=== PATIENT | male | born 1960 | race Caucasian/White ===

== ENCOUNTER → 2016-06-27 | Outpatient (CLI) | payer BC ==
--- NOTE | 2016-06-27 09:02 | CT ---
EXAMINATION TYPE: CT chest w con DATE OF EXAM: 06/27/2016 8:37 AM COMPARISON: NONE HISTORY: Abnormal chest xray CT DLP: 749 mGycm Automated exposure control for dose reduction was used. CONTRAST: CT scan of the chest is performed with IV Contrast, patient injected with 100 mL of Omnipaque 300. FINDINGS: LUNGS: There is a noncalcified 1 cm pulmonary nodule right lower lobe medially. No pleural effusion. No pneumothorax. No evidence of focal pneumonia. MEDIASTINUM: There are no greater than 1 cm hilar or mediastinal lymph nodes. No pericardial effusi on is seen. Shotty adenopathy in the hilum noted. OTHER: 1.7 cm indeterminate right adrenal mass IMPRESSION: 1. 1 cm right lower lobe pulmonary nodule is nonspecific. Recommend PET scan. 2. Indeterminate 1.7 cm right adrenal mass. Measures 17 Hounsfield units. May represent an adrenal ad enoma. No prior exams available.
== END ==
LOC: RADCTMAIN 08:07
PROVIDERS: ATTEND Family Medicine
DX: R91.1 Solitary pulmonary nodule (principal); E27.9 Disorder of adrenal gland, unspecified; M54.6 Pain in thoracic spine; J44.9 Chronic obstructive pulmonary disease, unspecified; Z72.0 Tobacco use
CPT/HCPCS: 71260; Q9967

== ENCOUNTER → 2017-12-31 | Outpatient (CLI) | payer BC ==
--- NOTE | 2017-12-31 18:09 | US ---
EXAMINATION TYPE: US venous doppler duplex LE LT DATE OF EXAM: 12/31/2017 5:33 PM COMPARISON: NONE CLINICAL HISTORY: Left Leg Pain M79.605. Left ankle pain while walking and now radiating up calf SIDE PERFORMED: Left TECHNIQUE: The lower extremity deep venous system is examined utilizing real time linear array sonog izzy with graded compression, doppler sonography and color-flow sonography. VESSELS IMAGED: Common Femoral Vein Deep Femoral Vein Greater Saphenous Vein * Femoral Vein Popliteal Vein Small Saphenous Vein * Proximal Calf Veins (* superficial vessels) Left Leg: Is positive for DVT in one of paired Posterior Tibial Veins (PTV) at upper calf level and then in both lower PTV as both veins noncompressible at ankle level. Tech findings were called to Dr. De Santiago at exam's end. IMPRESSION: The exam shows evidence of acute deep venous thrombosis in the posterior tibial veins.
== END | disposition home or self-care (01) ==
LOC: RADUSMAIN 16:46
PROVIDERS: ATTEND Family Medicine
DX: I82.442 Acute embolism and thrombosis of left tibial vein (principal)

== ENCOUNTER → 2018-01-21 | Outpatient (CLI) | payer BC ==
[2018-01-21 10:59] LABS: Basophils # (A) 0.1 k/uL (0-0.2); Basophils % (A) 1 %; Eosinophils # (A) 0.1 k/uL (0-0.7); Eosinophils % (A) 1 %; HCT 48.9 % (39.0-53.0); HGB 15.7 gm/dL (13.0-17.5); Lymphocytes # (A) 1.1 k/uL (1.0-4.8); Lymphocytes % (A) 19 %; MCH 31.1 pg (25.0-35.0); MCHC 32.2 g/dL (31.0-37.0); MCV 96.8 fL (80.0-100.0); Mean Platelet Volume 6.3; Monocytes # (A) 0.4 k/uL (0-1.0); Monocytes % (A) 7 %; Neutrophils # (A) 4.1 k/uL (1.3-7.7); Neutrophils % (A) 70 %; Platelet Count 250 k/uL (150-450); RBC 5.05 m/uL (4.30-5.90); RDW 13.2 % (11.5-15.5); WBC 5.9 k/uL (3.8-10.6)
[2018-01-21 11:03] LABS: INR 1.2 (<1.2); Partial Thromboplastin Time 30.9 sec (22.0-30.0); Prothrombin Time 11.6 sec (9.0-12.0)
[2018-01-21 20:46] LABS: Cardiolipin Ab IgG Interp NEGATIVE (NEGATIVE); Cardiolipin Ab IgM Interp NEGATIVE (NEGATIVE); Cardiolipin IgA Antibody 0.7 U/mL; Cardiolipin IgM Antibody 12.1 U/mL
[2018-01-22 10:07] LABS: Anti-Thrombin III Antigen 101 % (80 - 120)
[2018-01-23 11:10] LABS: Protein C Antigen 111 % (72-160)
[2018-01-23 11:20] LABS: Anti-Thrombin III Activity 122 % (79-109); Protein C (Activity) 130 % (71-138)
[2018-01-23 13:19] LABS: Free Protein S Antigen 88 % (57 - 171)
== END ==
LOC: LABWHC1 09:50
PROVIDERS: ATTEND Family Medicine
DX: I82.492 Acute embolism and thrombosis of other specified deep vein of left lower extremity (principal)
CPT/HCPCS: 36415; 81241; 83090; 85025; 85300; 85301; 85302; 85303; 85306; 85610; 85730; 86147

== ENCOUNTER → 2018-03-27 | Outpatient (CLI) | payer BC ==
--- NOTE | 2018-03-27 13:49 | US ---
EXAMINATION TYPE: US venous doppler duplex LE LT DATE OF EXAM: 03/27/2018 1:21 PM COMPARISON: US CLINICAL HISTORY: R22.42 M79.662 pain swelling left lower limb. Follow up US for Left PTV DVT SIDE PERFORMED: Left TECHNIQUE: The lower extremity deep venous system is examined utilizing real time linear array sonog izzy with graded compression, doppler sonography and color-flow sonography. VESSELS IMAGED: Common Femoral Vein Deep Femoral Vein Greater Saphenous Vein * Femoral Vein Popliteal Vein Small Saphenous Vein * Proximal Calf Veins (* superficial vessels) Left Leg: Is positive for DVT in one of two calf veins mid left leg as 1 of 2 veins is non compressi ble and internal echoes are noted within this vein. IMPRESSION: 1. below the knee DVT noted.
== END | disposition home or self-care (01) ==
LOC: RADUSWWP 12:54
PROVIDERS: ATTEND Internal Medicine Hematology & Oncology
DX: I82.4Z2 Acute embolism and thrombosis of unspecified deep veins of left distal lower extremity (principal); Z88.1 Allergy status to other antibiotic agents

== ENCOUNTER → 2018-06-29 | Outpatient (CLI) | payer BC ==
--- NOTE | 2018-06-29 15:02 | EST ---
EXERCISE STRESS AGE: 58 SEX: M HT: 5'11" WT: 200 PROTOCOL: Davon Treadmill Stress Test STAGE: 3 DURATION OF EXERCISE: 9:48 HEART RATE REST: 71 BLOOD PRESSURE REST: 118/81 MAXIMUM HEART RATE ACHIEVED: 138 MAXIMUM BLOOD PRESSURE: 170/54 85% MPHR: 136 100% MPHR: 160 METS: 11.3 INDICATIONS: Chest pain. CLINICAL INFORMATION: Baseline rhythm is sinus mechanism, rate 71. Normal axis and intervals, normal echocardiogram. Baseline blood pressure 118/81 mmHg. Patient exercised on Davon protocol for 9 minutes, 48 seconds reaching a peak rate 138 beats per minute which is equal to 86% maximum predicted heart rate. Peak blood pressure 170/54 mmHg. Test was terminated secondary to fatigue. There was no chest pain. Electrocardiograph monitoring revealed no evidence of diagnostic ischemic ST deviation. CONCLUSION: 1. Average exercise tolerance was normal. 2. Normal EKG response to exercise. 3. Rare premature ventricular contractions. 4. No chest discomfort during exercise. MMODL / IJN: [id number] / MTDD
== END ==
LOC: RADNMMAIN 08:47
PROVIDERS: ATTEND Physician Assistant Medical
DX: R07.89 Other chest pain (principal)
CPT/HCPCS: 93017

== ENCOUNTER → 2018-07-07 | Outpatient (CLI) | payer BC ==
--- NOTE | 2018-07-07 10:28 | US ---
EXAMINATION TYPE: US venous doppler duplex LE LT DATE OF EXAM: 07/07/2018 9:55 AM COMPARISON: CLINICAL HISTORY: I80.10 DVT. Hx of DVT. On blood thinners. No swelling or redness today. SIDE PERFORMED: Left TECHNIQUE: The lower extremity deep venous system is examined utilizing real time linear array sonog izzy with graded compression, doppler sonography and color-flow sonography. VESSELS IMAGED: External Iliac Vein (EIV) Common Femoral Vein Deep Femoral Vein Greater Saphenous Vein * Femoral Vein Popliteal Vein Small Saphenous Vein * Proximal Calf Veins (* superficial vessels) Left Leg: Negative for DVT IMPRESSION: No evidence for DVT.
== END | disposition home or self-care (01) ==
LOC: RADUSWWP 09:27
PROVIDERS: ATTEND Internal Medicine Hematology & Oncology
DX: I82.412 Acute embolism and thrombosis of left femoral vein (principal)

== ENCOUNTER → 2018-09-15 | Outpatient (CLI) | payer BC ==
--- NOTE | 2018-09-15 09:37 | XR ---
EXAMINATION TYPE: XR finger LT DATE OF EXAM: 09/15/2018 COMPARISON: NONE HISTORY: Temperature change of the left finger TECHNIQUE: 2 views of the left fourth and fifth digits were obtained FINDINGS: There is mild arthropathy of the fifth distal interphalangeal joint with few subchondral cy sts. There is minimal soft tissue swelling around the fourth proximal interphalangeal joint with join t space narrowing, bony productive change with overhanging edges, few osseous cysts. These changes ar e also partially visualized of the proximal and distal interphalangeal joints of the third digit. No acute fracture or dislocation. No radiopaque foreign body. IMPRESSION: Degenerative change of the proximal and distal interphalangeal joints of the left third t hrough fifth fingers is most exaggerated at the proximal interphalangeal joint of the fourth digit wi th mild overlying soft tissue swelling. Considerations are for osteoarthritis, gout, and psoriatic ar thritis given the appearance.
== END | disposition home or self-care (01) ==
LOC: RADXRYALE 08:51
PROVIDERS: ATTEND Physician Assistant Medical
DX: M19.042 Primary osteoarthritis, left hand (principal)

== ENCOUNTER → 2018-12-11 | Outpatient (CLI) | payer OTHER ==
--- NOTE | 2018-12-11 14:03 | MR ---
EXAMINATION TYPE: MR abdomen wo/w con DATE OF EXAM: 12/11/2018 COMPARISON: CT chest dated 03/11/2019 and 3-17 HISTORY: Disorders of adrenal gland Abnormal findings CONTRAST: Standard multiplanar, multisequence MRI departmental protocol utilizing 9 mL intravenous Gadavist edil olinium contrast. FINDINGS: Approximately 1.5 cm right basilar pulmonary nodule is known to the patient seen on the prior CT. There is no signal dropout of the liver to suggest hepatic steatosis. There is no evidence of intrahe patic biliary ductal dilatation. Punctate T2 hyperintense and T1 hypointense hepatic cyst is seen. Ot her scattered probable cysts are seen that are nonenhancing on postcontrast T1-weighted nonfat sat ax ial images however no corresponding T2 hyperintensity is definitively seen within some of these becau se of patient motion. Patient motion artifact limits the examination particularly on T2-weighted sequ ences. There is marked signal dropout of the right adrenal gland lesion compatible with a benign lipid rich adenoma. This lesion measures approximately 1.8 x 1.6 cm. There is also washout of contrast noted on delayed images within this mass. Left adrenal gland is unremarkable. No pancreatic ductal dilatation. Spleen is unremarkable in signal and enhancement. No greater than 1 cm short axis lymph node is visualized in the abdomen. No dilated large or small bowel are seen. Diastases recti is incidentally noted. IMPRESSION: 1. The right adrenal gland mass is stable dating back to 2016 and features are compatible with a philip gn lipid rich adenoma on MRI. 2. Right lower lobe pulmonary nodule, known to the patient is this was seen on the prior CT thorax.
--- NOTE | 2018-12-16 09:25 | P.ARTDOP ---
Arterial Doppler Upper extremity arterial Doppler: Date of study: 12/11/2018 Reason for study: Numbness left fourth finger Findings: Doppler waveforms are multiphasic bilaterally throughout. There are no segmental or right to left pressure gradients. Impression: Normal study
== END | disposition home or self-care (01) ==
LOC: RADMRIMAIN 12:32
PROVIDERS: ATTEND Family Medicine
DX: E27.8 Other specified disorders of adrenal gland (principal); D68.59 Other primary thrombophilia; L60.8 Other nail disorders
CPT/HCPCS: 93923; 74183; A9585

== ENCOUNTER → 2018-12-30 | Outpatient (CLI) | payer BC, OTHER ==
--- NOTE | 2018-12-31 06:57 | ECHOF ---
Referral Reason:R06.02 shortness of breath MEASUREMENTS -------- HEIGHT: 180.3 cm WEIGHT: 90.7 kg BP: RVIDd: 3.8 cm (< 3.3) IVSd: 1.2 cm (0.6 - 1.1) LVIDd: 4.9 cm (3.9 - 5.3) LVPWd: 1.2 cm (0.6 - 1.1) IVSs: 1.7 cm LVIDs: 3.3 cm LVPWs: 1.9 cm LAESV Index (A-L): 20.15 ml/m Ao Diam: 2.8 cm (2.0 - 3.7) AV Cusp: 2.2 cm (1.5 - 2.6) LA Diam: 3.5 cm (2.7 - 3.8) EPSS: 0.5 cm MV E Cain: 0.70 m/s MV DecT: 216 ms MV A Cain: 0.57 m/s MV E/A Ratio: 1.22 RAP: 5.00 mmHg RVSP: 33.35 mmHg MV EF SLOPE: 206.58 mm/s (70 - 150) MV EXCURSION: 2.62 cm (> 18.000) FINDINGS -------- Sinus rhythm. This was a technically good study. The left ventricular size is normal. There is mild concentric left ventricular hypertrophy. Overa ll left ventricular systolic function is normal with, an EF between 60 - 65 %. The diastolic fillin g pattern is normal for the age of the patient. The right ventricle is normal in size. Left atrium is normal size by volume. RA appears enlarged Interatrial and interventricular septum intact. Mobile interatrial septum. The aortic valve is trileaflet and appears structurally normal. There is no evidence of aortic regu rgitation. There is no evidence of aortic stenosis. There is trace to mild mitral regurgitation. Mild tricuspid regurgitation present. There is no evidence of pulmonary hypertension. The right v entricular systolic pressure, as measured by Doppler, is 33.35mmHg. There is no pulmonic regurgitation present. The aortic root size is normal. The inferior vena cava is mildly dilated. There is no pericardial effusion. CONCLUSIONS -------- 1. Sinus rhythm. 2. This was a technically good study. 3. The left ventricular size is normal. 4. There is mild concentric left ventricular hypertrophy. 5. Overall left ventricular systolic function is normal with, an EF between 60 - 65 %. 6. The diastolic filling pattern is normal for the age of the patient. 7. The right ventricle is normal in size. 8. Left atrium is normal size by volume. 9. RA appears enlarged 10. Interatrial and interventricular septum intact. 11. Mobile interatrial septum. 12. The aortic valve is trileaflet and appears structurally normal. 13. There is no evidence of aortic regurgitation. 14. There is no evidence of aortic stenosis. 15. There is trace to mild mitral regurgitation. 16. Mild tricuspid regurgitation present. 17. There is no evidence of pulmonary hypertension. 18. The right ventricular systolic pressure, as measured by Doppler, is 33.35mmHg. 19. There is no pulmonic regurgitation present. 20. The aortic root size is normal. 21. The inferior vena cava is mildly dilated. 22. There is no pericardial effusion. TRUCK WASHER: Elena Swift RDCS
== END | disposition home or self-care (01) ==
LOC: RADECHMAIN 11:02
PROVIDERS: ATTEND Family Medicine
DX: I08.1 Rheumatic disorders of both mitral and tricuspid valves (principal)
CPT/HCPCS: 93306

== ENCOUNTER → 2019-01-05 | Outpatient (CLI) | payer BC, OTHER ==
--- NOTE | 2019-01-05 12:24 | CT ---
EXAMINATION TYPE: CT chest w con DATE OF EXAM: 01/05/2019 COMPARISON: CT chest March 11, [address] of June 27, 2016 HISTORY: follow up to lung nodule CT DLP: 558 mGycm. Automated Exposure Control for Dose Reduction was Utilized. TECHNIQUE: CT scan of the thorax is performed following with IV Contrast, patient injected with 100 mL of Isovue 300. FINDINGS: LUNGS: Posterior medial right lower lobe nodule shows continued interval growth now measuring 1.4 x 1 .3 x 1.4 cm craniocaudal dimension axial image 15 and coronal image 54 courses last 2 studies. No new nodules or masses. No pleural effusion or pneumothorax. No focal consolidation MEDIASTINUM: There is stable prominent right hilar lymph node axial image 29 unchanged from prior elia dies. Stable prominent borderline enlarged AP window lymph node axial image 24. Stable prominent righ t tracheobronchial lymph node axial image 24. No new greater than 1 cm adenopathy. No cardiomegaly or pericardial effusion is seen. OTHER: Fairly stable indeterminate 2.1 x 1.7 cm right adrenal mass image 67. IMPRESSION: Continued interval slight enlargement of medial right basilar nodule. Neoplasm cannot be excluded. PET/CT follow-up should be strongly considered. This could also better evaluate indetermina te right adrenal mass.
== END | disposition home or self-care (01) ==
LOC: RADCTMAIN 09:13
PROVIDERS: ATTEND Internal Medicine Hematology & Oncology
DX: R91.1 Solitary pulmonary nodule (principal); Z88.1 Allergy status to other antibiotic agents
CPT/HCPCS: 71260; Q9967

== ENCOUNTER → 2019-10-08 | Outpatient (CLI) | payer OTHER ==
--- NOTE | 2019-10-08 18:27 | CT ---
EXAMINATION TYPE: CT chest w con DATE OF EXAM: 10/08/2019 COMPARISON: 01/05/2019 and 03/11/2020. MRI 12/11/2018. HISTORY: 59-year-old male Lung nodule. TECHNIQUE: Contiguous axial scanning of the chest after the administration of 100 mL of Isovue 300. Coronal/sagittal reconstructions performed. CT DLP: 347.9mGycm. Automatic exposure control utilized for a dose reduction. FINDINGS: Heart normal size without pericardial effusion. Stable 1 cm short axis AP window lymph node. No other thoracic lymphadenopathy by CT size criteria. Aorta normal caliber with conventional branching anatomy. Redemonstrated is irregular medial right lower lobe pulmonary nodule currently measuring 2.2 x 1.7 cm . This measured 1.6 x 1.3 cm and 1.3 x 1.1 cm on the prior 01/05/2019 and 03/11/2018 exam, respectivel y. No consolidation or pleural effusion. Visualized upper abdomen shows low-density mass of the right adrenal gland measuring 2.2 x 1.9 cm livia eduar 2.1 x 1.7 cm on 03/11/2018, stable to minimally larger. Visualized upper abdomen otherwise shows no gross abnormality. Bones: No osseous destructive process. IMPRESSION: 1. Findings highly suspicious for low-grade lung cancer at the medial right base which shows continue d gradual enlargement currently measuring 2.2 x 1.7 cm versus 1.3 x 1.1 cm back on 03/11/2018. 2. Low-density mass of the right adrenal gland measures 2.2 x 1.9 cm, stable to minimally larger from 03/11/2018 where it measured 2.1 x 1.7 cm. Still most suggestive of a benign adrenal adenoma given f indings on the MRI of 12/11/2018.
== END | disposition home or self-care (01) ==
LOC: RADCTMAIN 16:02
PROVIDERS: ATTEND Internal Medicine Critical Care Medicine
DX: R91.1 Solitary pulmonary nodule (principal)
CPT/HCPCS: 71260; Q9967

== ENCOUNTER → 2021-01-12 | Outpatient (CLI) | payer OTHER ==
--- NOTE | 2021-01-12 15:36 | XR ---
EXAMINATION TYPE: XR shoulder complete LT DATE OF EXAM: 01/12/2021 COMPARISON: NONE HISTORY: Pain TECHNIQUE: Three views are submitted. FINDINGS: The osseous structures are intact. There is no acute fracture or dislocation. Arthropathy of the AC joint. IMPRESSION: 1. AC joint arthropathy
== END | disposition home or self-care (01) ==
LOC: RADXRYALE 15:19
PROVIDERS: ATTEND Family Medicine
DX: M19.012 Primary osteoarthritis, left shoulder (principal)

== ENCOUNTER → 2021-01-24 | Outpatient (CLI) | payer OTHER ==
--- NOTE | 2021-01-25 07:45 | CT ---
EXAMINATION TYPE: CT chest w con DATE OF EXAM: 01/24/2021 COMPARISON: 10/08/2019 HISTORY: Pulmonary nodule. No complaints by patient. CT DLP: 383.70 mGycm Automated exposure control for dose reduction was used. CONTRAST: CT scan of the chest is performed with IV Contrast, patient injected with 100 mL of Isovue 300. FINDINGS: LUNGS: There is interval enlargement of a 3.0 x 4.5 x 2.8 cm mass within the right lower lobe mediall y with prior measurement of 2.2 x 1.7 cm. No additional masses seen. MEDIASTINUM: There are no greater than 1 cm hilar or mediastinal lymph nodes. 1.4 cm right hilar lym ph node noted. Additional 1.1 cm lymph node right infrahilar region. No pericardial effusion is seen. Thoracic aorta is of normal caliber. The heart is not enlarged. UPPER ABDOMEN: Enlarging mass right adrenal gland suspicious for metastatic disease now measuring 3.7 x 3.1 cm versus 2.3 x 1.9 cm previously. OTHER: No additional significant abnormality is seen. IMPRESSION: 1. Enlarging mass right lower lobe consistent with malignancy. 2. Right hilar adenopathy. 3. Enlarging right adrenal mass felt to reflect metastatic disease.
== END | disposition home or self-care (01) ==
LOC: RADCTMAIN 16:38
PROVIDERS: ATTEND Family Medicine
DX: C79.71 Secondary malignant neoplasm of right adrenal gland (principal); R91.8 Other nonspecific abnormal finding of lung field; R59.0 Localized enlarged lymph nodes
CPT/HCPCS: 71260; Q9967

== ENCOUNTER → 2021-02-09 | Outpatient (CLI) | payer OTHER ==
--- NOTE | 2021-02-09 15:38 | PE ---
EXAMINATION TYPE: PET CT fusion skull to thigh DATE OF EXAM: 02/09/2021 COMPARISON: Chest CT November 23, 2020 and older CTs HISTORY: Solitary pulmonary nodule, abnormal CT. TECHNIQUE: Following the intravenous administration of 9.0 mCi of F-18 FDG, whole body images are pe rformed from the skull base to the midthigh. Images are reviewed on the computer in the coronal, axi al, and sagittal planes. Reconstructed rotating images are created on independent workstation and re viewed on the computer. A localization and attenuation correction CT is performed in conjunction wi th the PET scan. Blood glucose level equals 96. SCAN: Initial Scan FINDINGS: SKULL BASE AND NECK: No areas of abnormal hypermetabolic uptake. CHEST, MEDIASTINUM, AND HILAR REGION: Persistent enlarging medial right lower lobe mass measuring 4.2 x 3.0 cm axial image 132 is noted ametabolic. Mild hypermetabolic uptake right hilar level axial image 98 with max SUV less than 2.5. No areas of abnormal hypermetabolic uptake clearly seen. ABDOMEN AND PELVIS: Abnormal roughly 1 cm mildly hypermetabolic uptake in the esophagus at level of d iaphragmatic hiatus axial image 146, max SUV is 3.62. OSSEOUS STRUCTURES: Abnormal hypermetabolic left proximal femur lesion axial image 279. Additional hy permetabolic scattered osseous lesions for reference upper sacrum axial image 219. Abnormal hypermeta bolic uptake distal left clavicle axial image 63 with corresponding ovoid lytic lesion. Max SUV at th is level is 7.99. Additional scattered hypermetabolic osseous lesions. OTHER CT: [id number] calcified plaque bilateral carotid bulb level. Mild to moderate coronary a rtery calcification. Small sized hiatal hernia. Stable low dense 4.1 x 2.4 cm right adrenal mass. Sigmoid colonic divertic asher. IMPRESSION: No suspicious hypermetabolic uptake in the enlarging medial right lower lobe mass. There is however osseous metastatic disease present. Possible distal esophageal lesion at level of diaphrag matic hiatus. Advise endoscopy follow-up to further evaluate. Primary etiology of neoplasm uncertain.
== END | disposition home or self-care (01) ==
LOC: RADPETMAIN 12:23
PROVIDERS: ATTEND Internal Medicine Critical Care Medicine
DX: C79.51 Secondary malignant neoplasm of bone (principal); R91.1 Solitary pulmonary nodule; C80.1 Malignant (primary) neoplasm, unspecified
CPT/HCPCS: 78815; A9552

== ENCOUNTER → 2021-03-16 | Outpatient (CLI) | payer OTHER ==
--- NOTE | 2021-03-16 10:45 | MR ---
EXAMINATION TYPE: MR shoulder LT wo con DATE OF EXAM: 03/16/2021 COMPARISON: PET CT 02/09/2021 HISTORY: Pain in left shoulder TECHNIQUE: Multiplanar, multisequence imaging of the left shoulder is performed without contrast. FINDINGS: There is a destructive mass involving the left scapula measuring approximately 4.5 x 3.8 x 3 cm in size which shows intermediate signal on T1, increased signal on T2-weighted sequences. Signal is somewhat mixed, there is extension to the level of the acromion and along the scapular spine, the re is mass effect on the supraspinatus muscle. Rotator Cuff: Mild increased signal may represent tendinosis. Acromioclavicular Joint: The acromion shows a spur. Glenohumeral Joint: Intact Labrum: The labrum appears grossly intact given limitation of non-arthrogram study. Biceps Tendon: The long head of biceps is in normal location within bicipital groove. Bone marrow signal: No focal abnormal marrow signal is appreciated. Other: No additional significant abnormality is appreciated. IMPRESSION: Findings likely represent metastatic disease. Correlate for impingement.
== END | disposition home or self-care (01) ==
LOC: RADMRIMAIN 08:09
PROVIDERS: ATTEND Family Medicine
DX: R22.32 Localized swelling, mass and lump, left upper limb (principal)

== ENCOUNTER → 2021-04-06 | Outpatient (CLI) | payer OTHER ==
--- NOTE | 2021-04-06 22:04 | MR ---
EXAMINATION TYPE: MR brain wo/w con DATE OF EXAM: 04/06/2021 COMPARISON: None HISTORY: Lung nodule, bone metastasis. TECHNIQUE: Multiplanar, multisequence images of the brain and brainstem is performed without and with IV contras t, utilizing 9 mL intravenous Gadavist . FINDINGS: Diffusion weighted images demonstrate no evidence of a recent infarct or other diffusion ab normality. There is no extra-axial fluid collection or significant white matter signal abnormality, 3-5 hyperintensities on inversion recovery T2-weighted sequences present in the subcortical white mat ter of questionable clinical significance. The ventricular system and cisternal spaces are normal in size and appearance. The brain volume is age appropriate. Midline structures demonstrate normal morphology. The craniocervical junction appears within normal limits. Post contrast images demonstrate no abnormal enhancement. The dural venous sinuses appear pa tent. The visualized sinuses are clear and the globes are intact. IMPRESSION: Nonspecific white matter demyelination of questionable clinical significance.
== END | disposition home or self-care (01) ==
LOC: RADMRIMAIN 18:25
PROVIDERS: ATTEND Internal Medicine Hematology & Oncology
DX: C80.1 Malignant (primary) neoplasm, unspecified (principal); C79.51 Secondary malignant neoplasm of bone; R91.1 Solitary pulmonary nodule
CPT/HCPCS: 70553; A9585

== ENCOUNTER 2021-04-17 08:57 | Day surgery (SDC) | payer OTHER ==
[2021-04-17 09:34] VITALS: RESP 16; TEMP 98.2
[2021-04-17 10:46] VITALS: BP 124/71; PULSE 74
--- NOTE | 2021-04-17 11:06 | CT ---
EXAMINATION TYPE: CT biopsy bone superficial DATE OF EXAM: 04/17/2021 COMPARISON: 02/09/2021, 03/16/2021 HISTORY: Left shoulder lesion of the bone CT DLP: 1279 mGycm The procedure is discussed with the patient, the risks, complications, benefits and alternatives, wer e discussed and any questions were answered. Informed consent was obtained. The patient is placed p raul on the CT table, prepped and draped in the usual sterile fashion. Utilizing a 18-gauge core biopsy needle access into left shoulder mass was achieved with 4 samples ob tained. Pathology confirmed adequate sample. All elements of maximal barrier and sterile technique were utilized. The patient remained stable throughout the procedure with no immediate postprocedural complication. IMPRESSION: 1. Successful CT guided core biopsy left shoulder mass
== END 2021-04-17 11:10 | disposition home or self-care (01) ==
LOC: RADPROMAIN 08:57
PROVIDERS: ATTEND Internal Medicine Hematology & Oncology
DX: M75.92 Shoulder lesion, unspecified, left shoulder (principal); C40.02 Malignant neoplasm of scapula and long bones of left upper limb
CPT/HCPCS: 20220; 77012; 88305; 88341; 88342

== ENCOUNTER 2021-05-10 19:22 | Observation (INO) | payer OTHER ==
[2021-05-10] MEDS ORDERED: SODIUM CHLORIDE 0.9% 1,000 ML IV STA (19:56)
--- NOTE | 2021-05-10 19:59 | ED ---
General Adult HPI - General Chief complaint: Weakness Stated complaint: Low B/P,Dizzy,Irregular Heartbeat Time Seen by Provider: 05/10/21 19:41 Source: patient, RN notes reviewed, old records reviewed Mode of arrival: ambulatory Limitations: no limitations - History of Present Illness Initial comments: 61-year-old male with recent diagnosis of stage IV adenocarcinoma presenting for evaluation of near syncope. Patient is coming by his daughter who is a nurse was able to give detailed history. He has had recent biopsy of the left shoulder and has undergone radiation. He is not yet to start chemotherapy. The patient had 2 episodes of near syncope today his blood pressure was 100 systolic and his heart rate was elevated and irregular according to the daughter. He has no previous history of A. fib. He denies chest pain or palpitations. Denies abdominal pain nausea vomiting. He states he has had night sweats for some time. No recent weight loss. - Related Data Home Medications Medication Instructions Recorded Confirmed Cholecalciferol (Vitamin D3) 125 mcg PO DAILY 04/04/21 05/10/21 [Vitamin D3 (125 MCG = 5,000 IU)] HYDROcodone/APAP 5-325MG [[place] 1 tab PO Q6HR PRN 04/04/21 05/10/21 5-325] Zinc 50 mg PO DAILY 04/04/21 05/10/21 Acetaminophen Tab [Tylenol Tab] 500 - 1,000 mg PO Q4H PRN 05/10/21 05/10/21 Ibuprofen [Motrin Ib] 800 mg PO Q4H PRN 05/10/21 05/10/21 oxyCODONE-APAP 7.5-325MG [Percocet 1 tab PO Q6HR PRN 05/10/21 05/10/21 7.5-325 mg] Allergies Allergy/AdvReac Type Severity Reaction Status Date / Time bee venom protein (honey bee) Allergy Swelling Verified 05/10/21 21:08 cephalexin [From Keflex] Allergy Rash/Hives Verified 05/10/21 21:08 Review of Systems ROS Statement: Those systems with pertinent positive or pertinent negative responses have been documented in the HPI. ROS Other: All systems not noted in ROS Statement are negative. Past Medical History Additional Past Medical History / Comment(s): cx- stage 4 adnocarcinoma. blood clots History of Any Multi-Drug Resistant Organisms: None Reported Past Surgical History: No Surgical Hx Reported, Orthopedic Surgery Additional Past Surgical History / Comment(s): hernia Past Psychological History: No Psychological Hx Reported Smoking Status: Current every day smoker Past Alcohol Use History: Rare Past Drug Use History: Marijuana General Exam Limitations: no limitations General appearance: alert, in no apparent distress Head exam: Present: atraumatic, normocephalic Eye exam: Present: normal appearance, PERRL ENT exam: Present: mucous membranes dry Neck exam: Present: normal inspection. Absent: tenderness, meningismus Respiratory exam: Present: normal lung sounds bilaterally. Absent: respiratory distress, wheezes, rales Cardiovascular Exam: Present: regular rate, normal rhythm GI/Abdominal exam: Present: soft. Absent: distended, tenderness, guarding, rebound Extremities exam: Present: normal inspection, normal capillary refill. Absent: pedal edema, calf tenderness Neurological exam: Present: alert, oriented X3, CN II-XII intact. Absent: motor sensory deficit Psychiatric exam: Present: normal affect, normal mood Skin exam: Present: warm, dry, intact Course Vital Signs 05/10/21 05/10/21 19:31 20:37 Temperature 98.7 F Pulse Rate 97 83 Respiratory 20 16 Rate Blood Pressure 132/79 127/77 O2 Sat by Pulse 97 97 Oximetry - Reevaluation(s) Reevaluation #1: 05/10/212129 patient requests and as to whether he had any chest pain or dyspnea within the past several days, he denies. EKG Findings - EKG Comments: EKG Findings:: EKG: Normal sinus rhythm, rate 79, AL interval 126, QRS duration 92, QTC [address] segment elevation. Medical Decision Making - Medical Decision Making 61-year-old male who presented with near syncope, 2 episodes, and racing heart and irregular pulse. Patient has no acute complaints at the time my evaluation. No chest pain or dyspnea. His EKG is sinus rhythm without ST segment elevation. Chest x-ray is clear. He is currently being evaluated and treated for metastatic adenocarcinoma. Patient has normal white blood cell count, hemoglobin of 11.1. He has normal electrolytes, normal kidney function. His initial troponin is 0.094. According to the daughter who is a nurse he was in a tachycardic irregular rhythm. I suspect that this rhythm may have been the cause of his near-syncope as well as troponin elevation. He has no active chest pain, no dyspnea. This level will be trended. He will be monitored on telemetry. He is given an aspirin. Cardiology will be placed on consult. Discussed case with Daina vance for [facility]. - Lab Data Result diagrams: 05/10/21 20:02 05/10/21 20:02 Lab Results 05/10/21 05/10/21 05/10/21 Range/Units 20:02 20:02 20:02 WBC 8.6 (3.8-10.6) k/uL RBC 3.94 L (4.30-5.90) m/uL Hgb 11.1 L (13.0-17.5) gm/dL Hct 35.7 L (39.0-53.0) % MCV 90.5 (80.0-100.0) fL MCH 28.3 (25.0-35.0) pg MCHC 31.3 (31.0-37.0) g/dL RDW 13.9 (11.5-15.5) % Plt Count 553 H (150-450) k/uL MPV 7.1 Neutrophils % 71 % Lymphocytes % 16 % Monocytes % 8 % Eosinophils % 2 % Basophils % 1 % Neutrophils # 6.1 (1.3-7.7) k/uL Lymphocytes # 1.4 (1.0-4.8) k/uL Monocytes # 0.7 (0-1.0) k/uL Eosinophils # 0.2 (0-0.7) k/uL Basophils # 0.1 (0-0.2) k/uL Hypochromasia Slight PT 10.5 (9.0-12.0) sec INR 1.0 (<1.2) APTT 26.7 (22.0-30.0) sec Sodium 138 (137-145) mmol/L Potassium 3.9 (3.5-5.1) mmol/L Chloride 103 (98-107) mmol/L Carbon Dioxide 27 (22-30) mmol/L Anion Gap 8 mmol/L BUN 19 (9-20) mg/dL Creatinine 0.90 (0.66-1.25) mg/dL Est GFR (CKD-EPI)AfAm >90 (>60 ml/min/1.73 sqM) Est GFR (CKD-EPI)NonAf >90 (>60 ml/min/1.73 sqM) Glucose 109 H (74-99) mg/dL Calcium 8.9 (8.4-10.2) mg/dL Magnesium 2.2 (1.6-2.3) mg/dL Total Bilirubin 0.5 (0.2-1.3) mg/dL AST 18 (17-59) U/L ALT 16 (4-49) U/L Alkaline Phosphatase 73 (38-126) U/L Troponin I (0.000-0.034) ng/mL Total Protein 7.2 (6.3-8.2) g/dL Albumin 3.2 L (3.5-5.0) g/dL Urine Color Urine Appearance (Clear) Urine pH (5.0-8.0) Ur Specific [place] (1.001-1.035) Urine Protein (Negative) Urine Glucose (UA) (Negative) Urine Ketones (Negative) Urine Blood (Negative) Urine Nitrite (Negative) Urine Bilirubin (Negative) Urine Urobilinogen (<2.0) mg/dL Ur Leukocyte Esterase (Negative) 05/10/21 05/10/21 Range/Units 20:02 21:47 WBC (3.8-10.6) k/uL RBC (4.30-5.90) m/uL Hgb (13.0-17.5) gm/dL Hct (39.0-53.0) % MCV (80.0-100.0) fL MCH (25.0-35.0) pg MCHC (31.0-37.0) g/dL RDW (11.5-15.5) % Plt Count (150-450) k/uL MPV Neutrophils % % Lymphocytes % % Monocytes % % Eosinophils % % Basophils % % Neutrophils # (1.3-7.7) k/uL Lymphocytes # (1.0-4.8) k/uL Monocytes # (0-1.0) k/uL Eosinophils # (0-0.7) k/uL Basophils # (0-0.2) k/uL Hypochromasia PT (9.0-12.0) sec INR (<1.2) APTT (22.0-30.0) sec Sodium (137-145) mmol/L Potassium (3.5-5.1) mmol/L Chloride (98-107) mmol/L Carbon Dioxide (22-30) mmol/L Anion Gap mmol/L BUN (9-20) mg/dL Creatinine (0.66-1.25) mg/dL Est GFR (CKD-EPI)AfAm (>60 ml/min/1.73 sqM) Est GFR (CKD-EPI)NonAf (>60 ml/min/1.73 sqM) Glucose (74-99) mg/dL Calcium (8.4-10.2) mg/dL Magnesium (1.6-2.3) mg/dL Total Bilirubin (0.2-1.3) mg/dL AST (17-59) U/L ALT (4-49) U/L Alkaline Phosphatase (38-126) U/L Troponin I 0.094 H* (0.000-0.034) ng/mL Total Protein (6.3-8.2) g/dL Albumin (3.5-5.0) g/dL Urine Color Yellow Urine Appearance Clear (Clear) Urine pH 5.5 (5.0-8.0) Ur Specific [place] 1.021 (1.001-1.035) Urine Protein Negative (Negative) Urine Glucose (UA) Negative (Negative) Urine Ketones Negative (Negative) Urine Blood Negative (Negative) Urine Nitrite Negative (Negative) Urine Bilirubin Negative (Negative) Urine Urobilinogen <2.0 (<2.0) mg/dL Ur Leukocyte Esterase Negative (Negative) Disposition Clinical Impression: Syncope, Elevated troponin Disposition: ADMITTED IP TO THIS [facility] Condition: Stable Is patient prescribed a controlled substance at d/c from ED?: No Referrals: Jose De Santiago DO [Primary Care Provider] - 1-2 days Decision to Admit Reason: Admit from EC Decision Date: 05/10/21 Decision Time: 22:15
[2021-05-10 20:11] LABS: Basophils # (A) 0.1 k/uL (0-0.2); Basophils % (A) 1 %; Eosinophils # (A) 0.2 k/uL (0-0.7); Eosinophils % (A) 2 %; HCT 35.7 % (39.0-53.0); HGB 11.1 gm/dL (13.0-17.5); Hypochromasia Slight; Lymphocytes # (A) 1.4 k/uL (1.0-4.8); Lymphocytes % (A) 16 %; MCH 28.3 pg (25.0-35.0); MCHC 31.3 g/dL (31.0-37.0); MCV 90.5 fL (80.0-100.0); Mean Platelet Volume 7.1; Monocytes # (A) 0.7 k/uL (0-1.0); Monocytes % (A) 8 %; Neutrophils # (A) 6.1 k/uL (1.3-7.7); Neutrophils % (A) 71 %; Platelet Count 553 k/uL (150-450); RBC 3.94 m/uL (4.30-5.90); RDW 13.9 % (11.5-15.5); WBC 8.6 k/uL (3.8-10.6)
[2021-05-10 20:20] LABS: ALT 16 U/L (4-49); AST 18 U/L (17-59); African American GFR (CKD) >90 (>60 ml/min/1.73 sqM); Albumin 3.2 g/dL (3.5-5.0); Alkaline Phosphatase 73 U/L (38-126); Anion Gap 8 mmol/L; Blood Urea Nitrogen 19 mg/dL (9-20); Calcium 8.9 mg/dL (8.4-10.2); Carbon Dioxide 27 mmol/L (22-30); Chloride 103 mmol/L (98-107); Glucose 109 mg/dL (74-99); Magnesium 2.2 mg/dL (1.6-2.3); Non-African American GFR(CKD) >90 (>60 ml/min/1.73 sqM); Potassium 3.9 mmol/L (3.5-5.1); Sodium 138 mmol/L (137-145); Total Bilirubin 0.5 mg/dL (0.2-1.3); Total Protein 7.2 g/dL (6.3-8.2)
[2021-05-10 20:28] LABS: Partial Thromboplastin Time 26.7 sec (22.0-30.0); Prothrombin Time 10.5 sec (9.0-12.0)
[2021-05-10] MEDS ORDERED: ASPIRIN 325 MG TAB PO STA (20:43)
--- NOTE | 2021-05-10 21:32 | XR ---
EXAMINATION: XR chest 2V DATE AND TIME: 05/10/2021 8:33 PM CLINICAL INDICATION: syncope TECHNIQUE: Departmental protocol COMPARISON: None FINDINGS: The lungs are clear. The pleural spaces are negative. The cardiac silhouette is not enlarged. The remainder of the mediastinal silhouette is unremarkable. The skeletal structures and soft tissues are negative for acute findings. IMPRESSION: NO ACUTE PROCESS.
[2021-05-10] MEDS ORDERED: SODIUM CHLORIDE 0.9% 1,000 ML IV SCH (21:45)
[2021-05-10] MEDS ORDERED: HYDROmorphone 1 MG/ML 1 ML SYRINGE IVP STA (21:45)
[2021-05-10] MEDS ORDERED: HYDROmorphone 0.5 MG/0.5 ML SYRINGE IVP PRN (21:50)
[2021-05-10] MEDS ORDERED: NALOXONE 0.4 MG/ML 1 ML VIAL IV PRN (21:50)
[2021-05-10] MEDS ORDERED: ACETAMINOPHEN TAB 325 MG TAB PO PRN (21:50)
[2021-05-10 22:03] LABS: Appearance,Urine Clear (Clear); Bilirubin,Urine Negative (Negative); Blood,Urine Negative (Negative); Color,Urine Yellow; Glucose,Urine (UA) Negative (Negative); Ketones,Urine Negative (Negative); Leukocyte Esterase,Urine Negative (Negative); Nitrite,Urine Negative (Negative); PH, Urine 5.5 (5.0-8.0); Protein,Urine Negative (Negative); Specific Gravity,Urine 1.021 (1.001-1.035); Urobilinogen,Urine <2.0 mg/dL (<2.0)
[2021-05-11 02:51] VITALS: TEMP 98.3
[2021-05-11] MEDS: HYDROmorphone 1 MG/ML 1 ML SYRINGE IVP PRN ×3 (03:31→10:31)
[2021-05-11 05:52] LABS: Basophils % (A) 1 %; Eosinophils # (A) 0.1 k/uL (0-0.7); Eosinophils % (A) 1 %; HCT 32.1 % (39.0-53.0); Hypochromasia Slight; Lymphocytes # (A) 1.4 k/uL (1.0-4.8); Lymphocytes % (A) 21 %; MCH 28.2 pg (25.0-35.0); MCHC 31.2 g/dL (31.0-37.0); MCV 90.5 fL (80.0-100.0); Mean Platelet Volume 7.5; Monocytes # (A) 0.5 k/uL (0-1.0); Monocytes % (A) 8 %; Neutrophils # (A) 4.5 k/uL (1.3-7.7); Neutrophils % (A) 67 %; Platelet Count 448 k/uL (150-450); RBC 3.54 m/uL (4.30-5.90); RDW 13.9 % (11.5-15.5); WBC 6.7 k/uL (3.8-10.6)
[2021-05-11 06:02] LABS: ALT 13 U/L (4-49); AST 16 U/L (17-59); African American GFR (CKD) >90 (>60 ml/min/1.73 sqM); Albumin 2.8 g/dL (3.5-5.0); Alkaline Phosphatase 63 U/L (38-126); Anion Gap 4 mmol/L; Blood Urea Nitrogen 14 mg/dL (9-20); Calcium 8.4 mg/dL (8.4-10.2); Carbon Dioxide 25 mmol/L (22-30); Chloride 106 mmol/L (98-107); Glucose 106 mg/dL (74-99); Non-African American GFR(CKD) >90 (>60 ml/min/1.73 sqM); Potassium 4.5 mmol/L (3.5-5.1); Sodium 135 mmol/L (137-145); Total Bilirubin 0.5 mg/dL (0.2-1.3); Total Protein 6.5 g/dL (6.3-8.2)
[2021-05-11 06:55] VITALS: RESP 18
[2021-05-11] MEDS ORDERED: HEPARIN SODIUM,PORCINE/PF 5,000 UNIT/0.5 ML SYRINGE SQ SCH (09:00)
[2021-05-11] MEDS ORDERED: ASPIRIN 81 MG PO SCH (09:00)
[2021-05-11] MEDS ORDERED: FAMOTIDINE 20 MG/2 ML VIAL IV SCH (09:00)
--- NOTE | 2021-05-11 09:29 | ECHOF ---
Referral Reason:syncope MEASUREMENTS -------- HEIGHT: 175.3 cm WEIGHT: 94.8 kg BP: 129/78 IVSd: 1.0 cm (0.6 - 1.1) LVIDd: 4.8 cm (3.9 - 5.3) LVPWd: 1.1 cm (0.6 - 1.1) IVSs: 1.6 cm LVIDs: 3.4 cm LVPWs: 1.9 cm LAESV Index (A-L): 33.83 ml/m Ao Diam: 3.5 cm (2.0 - 3.7) AV Cusp: 2.4 cm (1.5 - 2.6) LA Diam: 3.7 cm (2.7 - 3.8) MV EXCURSION: 22.955 mm (> 18.000) MV EF SLOPE: 146 mm/s (70 - 150) EPSS: 0.3 cm MV E Cain: 1.14 m/s MV DecT: 191 ms MV A Cain: 0.72 m/s MV E/A Ratio: 1.58 RAP: 5.00 mmHg RVSP: 31.25 mmHg FINDINGS -------- Sinus rhythm. This was a technically adequate study. The left ventricular size is normal. Left ventricular wall thickness is normal. Overall left vent ricular systolic function is normal with, an EF between 55 - 60 %. The diastolic filling pattern is normal for the age of the patient {E/E'}. The right ventricle is normal in size. LA is midly dilated 29-33ml/m2. The right atrial size is normal. Interatrial and interventricular septum intact. There is no evidence of aortic regurgitation. There is no evidence of aortic stenosis. There is trace to mild mitral regurgitation. Mild tricuspid regurgitation present. There is no evidence of pulmonary hypertension. The right v entricular systolic pressure, as measured by Doppler, is 31.25mmHg. There is no pulmonic regurgitation present. The aortic root size is normal. IVC Not well visulized. There is no pericardial effusion. CONCLUSIONS -------- 1. The left ventricular size is normal. 2. Left ventricular wall thickness is normal. 3. Overall left ventricular systolic function is normal with, an EF between 55 - 60 %. 4. The diastolic filling pattern is normal for the age of the patient {E/E'} 5. LA is midly dilated 29-33ml/m2. 6. There is trace to mild mitral regurgitation. 7. Mild tricuspid regurgitation present. [employer] INSTALLER: Elena Swift RDCS
--- NOTE | 2021-05-11 10:18 | P.CRDCN ---
History of Present Illness History of present illness: HISTORY OF PRESENTING ILLNESS This is a pleasant 61-year-old male past medical history significant for Adenocarcinoma, chronic nicotine dependence, history of DVT about 6 years ago treated with anticoagulation, recent left shoulder biopsy on 04/17/21. He does not follow with a contract coordinator, he follows with Dr. Chandler and Dr. De Santiago. We have been asked to see in consultation for elevated troponin and near syncope. Patient is seen and examined in the emergency department. Patient states y morning he had an episode of acute onset lightheadedness and dizziness and saw "white". He states this lasted less than 10 minutes. He denies the room spinning, he states "everything just went white". It was resolved by sitting down and resting. He states it returned throughout the day. Nothing specific would bring it on, he states it was random. His daughter is a nurse and felt his pulse, and noted to be fast and irregular. She checked his blood pressure and noted to be 101/80 and HR in the 140s. He was brought to the emergency department for further evaluation. He denies chest pain, palpitations, shortness of breath, syncope, loss of consciousness, abdominal pain, nausea, vomiting, diaphoresis, cough, fever chills. He does currently smoke 8-10 cigarrettes per day. Denies alcohol use. No illicit drug use. He denies history of diabetes, CAD, [place], hypertension, dyslipidemia, stroke or irregular heart rhythm. He denies any family history of heart disease or arrhythmias. DIAGNOSTICS EKG reveals sinus rhythm, heart rate 79, no significant ST ST abnormalities. Echocardiogram revealed EF 5560 percent, LA is mildly dilated, trace to mild mitral kitchen, mild tricuspid regurgitation. Telemetry tracings indicate sinus mechanism, heart rate in the 80s, no arrhythmia noted Chest xray no acute cardiopulmonary process. Laboratory reviewed, troponin 0.09, 0.08, 0.06, 0.04, sodium 135, potassium 4.5, BUN 14, serum creatinine 0.8, magnesium 2.2, albumin 2.8, WBC 6.7, hemoglobin 1 0, platelets 448 Current home medications include when necessary Percocet, when necessary ibuprofen, vitamin D3, acetaminophen when necessary, zinc, and [place] when necessary REVIEW OF SYSTEMS At the time of my exam: CONSTITUTIONAL: Denies fever or chills. +night sweats CARDIOVASCULAR: Denies chest pain, shortness of breath, orthopnea, PND or palpitations. RESPIRATORY: Denies cough. GASTROINTESTINAL: Denies abdominal pain, diarrhea, constipation, nausea or vomiting. MUSCULOSKELETAL: Denies myalgias. NEUROLOGIC: Denies numbness, tingling, headache or weakness. ENDOCRINE: Denies fatigue, weight change, polydipsia or polyurina. GENITOURINARY: Denies burning, hematuria or urgency with micturation. HEMATOLOGIC: +history of anemia, history of DVT, denies bleeding PHYSICAL EXAMINATION Blood pressure 129/78, heart rate 94, afebrile, oxygen saturation is 95% on room air CONSTITUTIONAL: No apparent distress. HEENT: Head is normocephalic. Pupils are equal, round. Sclerae anicteric. Mucous membranes of the mouth are moist. No JVD. No carotid bruit. CHEST EXAMINATION: Lungs are clear to auscultation. No chest wall tenderness is noted on palpation or with deep breathing. HEART EXAMINATION: Regular rate and rhythm. S1, S2 heard. No murmurs, gallops or rub. ABDOMEN: Soft, nontender. Positive bowel sounds. EXTREMITIES: 2+ peripheral pulses, no lower extremity edema and no calf tenderness. SKIN: warm, dry NEUROLOGIC EXAMINATION: Patient is awake, alert and oriented x3. ASSESSMENT Near Syncope Elevated troponin, unclear etiology at this time, trend unlikely acute coronary syndrome, patient without chest pain or shortness of breath, No ischemia noted on EKG, normal LV systolic function Adenocarcinoma Chronic nicotine dependence History of DVT Episode of tachycardia at home per family and patient PLAN 2D echocardiogram obtained and reviewed Check D-dimer if abnormal will check CTA Continue cardiac telemetry Oncology notified of patient Will monitor patient for additional 24 hours Smoking cessation discussed and highly recommended. Further recommendations based on clinical course Thank you kindly for this consultation. Nurse Practitioner note has been reviewed, I agree with a documented findings and plan of care. Patient was seen and examined. Past Medical History Additional Past Medical History / Comment(s): cx- stage 4 adnocarcinoma. blood clots History of Any Multi-Drug Resistant Organisms: None Reported Past Surgical History: No Surgical Hx Reported, Orthopedic Surgery Additional Past Surgical History / Comment(s): hernia Past Psychological History: No Psychological Hx Reported Smoking Status: Current every day smoker Past Alcohol Use History: Rare Past Drug Use History: Marijuana Medications and Allergies Home Medications Medication Instructions Recorded Confirmed Type Cholecalciferol (Vitamin D3) 125 mcg PO DAILY 04/04/21 05/10/21 History [Vitamin D3 (125 MCG = 5,000 IU)] HYDROcodone/APAP 5-325MG [[place] 1 tab PO Q6HR PRN 04/04/21 05/10/21 History 5-325] Zinc 50 mg PO DAILY 04/04/21 05/10/21 History Acetaminophen Tab [Tylenol Tab] 500 - 1,000 mg PO Q4H PRN 05/10/21 05/10/21 History Ibuprofen [Motrin Ib] 800 mg PO Q4H PRN 05/10/21 05/10/21 History oxyCODONE-APAP 7.5-325MG [Percocet 1 tab PO Q6HR PRN 05/10/21 05/10/21 History 7.5-325 mg] Allergies Allergy/AdvReac Type Severity Reaction Status Date / Time bee venom protein (honey bee) Allergy Swelling Verified 05/10/21 21:08 cephalexin [From Keflex] Allergy Rash/Hives Verified 05/10/21 21:08 Physical Exam Vitals: Vital Signs Temp Pulse Resp BP Pulse Ox 05/11/21 06:54 94 18 129/78 95 05/11/21 02:40 98.3 F 83 16 117/70 98 05/11/21 02:10 120/74 05/11/21 01:40 82 123/71 05/11/21 01:10 82 116/73 05/11/21 00:40 80 121/73 05/10/21 23:40 85 114/81 05/10/21 23:10 80 121/73 05/10/21 23:00 90 118/74 05/10/21 20:37 83 16 127/77 97 05/10/21 19:31 98.7 F 97 20 132/79 97 Intake and Output 05/10/21 05/11/21 05/11/21 22:59 06:59 14:59 Other: Weight 92.986 kg Results 05/11/21 05:29 05/11/21 05:29 Cardiac Enzymes 05/10/21 05/10/21 05/10/21 Range/Units 20:02 20:02 21:47 AST 18 (17-59) U/L Troponin I 0.094 H* 0.084 H* (0.000-0.034) ng/mL 05/10/21 05/11/21 05/11/21 Range/Units 23:49 05:29 05:29 AST 16 L (17-59) U/L Troponin I 0.069 H* 0.043 H* (0.000-0.034) ng/mL Coagulation 05/10/21 Range/Units 20:02 PT 10.5 (9.0-12.0) sec APTT 26.7 (22.0-30.0) sec CBC 05/10/21 05/11/21 Range/Units 20:02 05:29 WBC 8.6 6.7 (3.8-10.6) k/uL RBC 3.94 L 3.54 L (4.30-5.90) m/uL Hgb 11.1 L 10.0 L (13.0-17.5) gm/dL Hct 35.7 L 32.1 L (39.0-53.0) % Plt Count 553 H 448 (150-450) k/uL Comprehensive Metabolic Panel 05/10/21 05/11/21 Range/Units 20:02 05:29 Sodium 138 135 L (137-145) mmol/L Potassium 3.9 4.5 (3.5-5.1) mmol/L Chloride 103 106 (98-107) mmol/L Carbon Dioxide 27 25 (22-30) mmol/L BUN 19 14 (9-20) mg/dL Creatinine 0.90 0.89 (0.66-1.25) mg/dL Glucose 109 H 106 H (74-99) mg/dL Calcium 8.9 8.4 (8.4-10.2) mg/dL AST 18 16 L (17-59) U/L ALT 16 13 (4-49) U/L Alkaline Phosphatase 73 63 (38-126) U/L Total Protein 7.2 6.5 (6.3-8.2) g/dL Albumin 3.2 L 2.8 L (3.5-5.0) g/dL Current Medications Generic Name Dose Route Start Last Admin Trade Name Freq PRN Reason Stop Dose Admin Acetaminophen 650 mg 05/10/21 21:50 Acetaminophen Tab 325 Mg Tab PO Q6HR PRN Mild Pain or Fever > 100.5 Hydromorphone HCl 0.5 mg 05/10/21 21:50 Hydromorphone 0.5 Mg/0.5 Ml Syringe IVP Q3HR PRN Moderate Pain Hydromorphone HCl 1 mg 05/10/21 21:50 05/11/21 07:06 Hydromorphone 1 Mg/Ml 1 Ml Syringe IVP 1 mg Q3HR PRN Administration Severe Pain Sodium Chloride 1,000 mls @ 75 mls/hr 05/10/21 21:45 05/10/21 21:50 Saline 0.9% IV 75 mls/hr .[id number] ALEENA Administration Naloxone HCl 0.2 mg 05/10/21 21:50 Naloxone 0.4 Mg/Ml 1 Ml Vial IV Q2M PRN Opioid Reversal Intake and Output 05/10/21 05/11/21 05/11/21 22:59 06:59 14:59 Other: Weight 92.986 kg 05/11/21 05:29 05/11/21 05:29
[2021-05-11 10:30] VITALS: BP 138/83; PULSE 81
--- NOTE | 2021-05-11 11:25 | P.HPIM ---
History of Present Illness This is a pleasant 61 years old male with past medical history of cancer, stage IV adenocarcinoma of left leg DVT about 8 years ago, currently not an anticoagulation Presents because of lightheadedness. Patient was at work when he felt lightheadedness which is for him about to fall down. He did not pass out. His lightheadedness was on and off however gradually was getting worse so his doctor who is a nurse check his blood pressure was 101/70 and heart rate was high but without specific irrigation and it was irregular that lasted for 30 minutes. He denies chest pain. No dyspnea and no coughing. No GI or urinary symptoms. No fever. Patient also has history of cancer, since last December he has 2 spots 1 in his shoulder with making difficult to raise his arm above his head and one in his left thigh with aching only he got radiotherapy. He has negative PET scan as per patient however biopsy from his left shoulder l esion showing possible lung cancer. All this information as per patient. Also he follows up with Dr. Chandler with his consulted Moves about 6-7 cigarettes per day, he was counseled to quit. No alcohol or illicit drugs On admission Vitas looks stable. Labs show an unremarkable CBC, BMP and liver enzymes except for mild anemia with hemoglobin of 10.0. His troponin were elevated at 0.09 0.08, 0.06 and 0.04. Urine analysis is not suspicious of infection. EKG showed normal sinus rhythm at [address]-T changes and QTC is 399. Chest x-ray: No acute process. On admission he received normal saline and aspirin Review of Systems CONSTITUTIONAL: No fever, no malaise, no fatigue. HEENT: No recent visual problems or hearing problems. Denied any sore throat. CARDIOVASCULAR: No orthopnea, PND, no palpitations, no syncope. PULMONARY: No shortness of breath, no cough, no hemoptysis. GASTROINTESTINAL: No diarrhea, no nausea, no vomiting, no abdominal pain. Normoactive bowel sounds. NEUROLOGICAL: No headaches, no weakness, no numbness. HEMATOLOGICAL: Denies any bleeding or petechiae. GENITOURINARY: Denies any burning micturition, frequency, or urgency. MUSCULOSKELETAL/RHEUMATOLOGICAL: Denies any joint pain, swelling, or any muscle pain. ENDOCRINE: Denies any polyuria or polydipsia. Past Medical History Additional Past Medical History / Comment(s): cx- stage 4 adnocarcinoma. blood clots History of Any Multi-Drug Resistant Organisms: None Reported Past Surgical History: No Surgical Hx Reported, Orthopedic Surgery Additional Past Surgical History / Comment(s): hernia Past Psychological History: No Psychological Hx Reported Smoking Status: Current every day smoker Past Alcohol Use History: Rare Past Drug Use History: Marijuana Medications and Allergies Home Medications Medication Instructions Recorded Confirmed Type Cholecalciferol (Vitamin D3) 125 mcg PO DAILY 04/04/21 05/10/21 History [Vitamin D3 (125 MCG = 5,000 IU)] HYDROcodone/APAP 5-325MG [[place] 1 tab PO Q6HR PRN 04/04/21 05/10/21 History 5-325] Zinc 50 mg PO DAILY 04/04/21 05/10/21 History Acetaminophen Tab [Tylenol Tab] 500 - 1,000 mg PO Q4H PRN 05/10/21 05/10/21 History Ibuprofen [Motrin Ib] 800 mg PO Q4H PRN 05/10/21 05/10/21 History oxyCODONE-APAP 7.5-325MG [Percocet 1 tab PO Q6HR PRN 05/10/21 05/10/21 History 7.5-325 mg] Allergies Allergy/AdvReac Type Severity Reaction Status Date / Time bee venom protein (honey bee) Allergy Swelling Verified 05/10/21 21:08 cephalexin [From Keflex] Allergy Rash/Hives Verified 05/10/21 21:08 Physical Exam Vitals: Vital Signs Temp Pulse Resp BP Pulse Ox 05/11/21 06:54 94 18 129/78 95 05/11/21 02:40 98.3 F 83 16 117/70 98 05/11/21 02:10 120/74 05/11/21 01:40 82 123/71 05/11/21 01:10 82 116/73 05/11/21 00:40 80 121/73 05/10/21 23:40 85 114/81 05/10/21 23:10 80 121/73 05/10/21 23:00 90 118/74 05/10/21 20:37 83 16 127/77 97 05/10/21 19:31 98.7 F 97 20 132/79 97 Intake and Output 05/10/21 05/11/21 05/11/21 22:59 06:59 14:59 Other: Weight 92.986 kg GENERAL: The patient is alert and oriented x3, not in any acute distress. Well developed, well nourished. HEENT: Pupils are round and equally reacting to light. EOMI. No scleral icterus. No conjunctival pallor. Normocephalic, atraumatic. No pharyngeal erythema. No thyromegaly. CARDIOVASCULAR: S1 and S2 present. No murmurs, rubs, or gallops. PULMONARY: Chest is clear to auscultation, no wheezing or crackles. ABDOMEN: Soft, nontender, nondistended, normoactive bowel sounds. No palpable organomegaly. MUSCULOSKELETAL: No joint swelling or deformity. EXTREMITIES: No cyanosis, clubbing, or pedal edema. NEUROLOGICAL: Gross neurological examination did not reveal any focal deficits. SKIN: No rashes. No petechiae Results CBC & Chem 7: 05/11/21 05:29 05/11/21 05:29 Labs: Abnormal Lab Results - Last 24 Hours (Table) 05/10/21 05/10/21 05/10/21 Range/Units 20:02 20:02 20:02 RBC 3.94 L (4.30-5.90) m/uL Hgb 11.1 L (13.0-17.5) gm/dL Hct 35.7 L (39.0-53.0) % Plt Count 553 H (150-450) k/uL Sodium (137-145) mmol/L Glucose 109 H (74-99) mg/dL AST (17-59) U/L Troponin I 0.094 H* (0.000-0.034) ng/mL Albumin 3.2 L (3.5-5.0) g/dL 05/10/21 05/10/21 05/11/21 Range/Units 21:47 23:49 05:29 RBC (4.30-5.90) m/uL Hgb (13.0-17.5) gm/dL Hct (39.0-53.0) % Plt Count (150-450) k/uL Sodium (137-145) mmol/L Glucose (74-99) mg/dL AST (17-59) U/L Troponin I 0.084 H* 0.069 H* 0.043 H* (0.000-0.034) ng/mL Albumin (3.5-5.0) g/dL 05/11/21 05/11/21 Range/Units 05:29 05:29 RBC 3.54 L (4.30-5.90) m/uL Hgb 10.0 L (13.0-17.5) gm/dL Hct 32.1 L (39.0-53.0) % Plt Count (150-450) k/uL Sodium 135 L (137-145) mmol/L Glucose 106 H (74-99) mg/dL AST 16 L (17-59) U/L Troponin I (0.000-0.034) ng/mL Albumin 2.8 L (3.5-5.0) g/dL Assessment and Plan Assessment: Episodes of Lightheadedness since yesterday Elevated troponin, rule out cardiac causes Nicotine dependence Stage IV adenocarcinoma, source could be lungs as per patient report his oncologist is Dr. Chandler Plan: this is a pleasant 61 years old male who presents with near syncope and elevated troponin Check echocardiogram Cardiology consult Continue with aspirin Check TSH Labs and medication were reviewed.. Continue same treatment. Continue with symptomatic treatment. Resume home medication. Monitor lytes and vitals. DVT and GI prophylaxis. Further recommendations depends on the clinical course of the patient DVT prophylaxis: Subcutaneous heparin GI Prophylaxis: Pepcid PT/OT: Pending Prognosis is guarded
--- NOTE | 2021-05-11 12:00 | CT ---
EXAMINATION TYPE: CT angio chest DATE OF EXAM: 05/11/2021 COMPARISON: 01/24/2021 HISTORY: 61-year-old male shortness of breath, Elevated d-dimer, syncope. TECHNIQUE: Contiguous axial scanning of the chest performed with IV Contrast, patient injected with 1 00 mL of Isovue 370. Coronal/sagittal MIP reconstructions performed. CT DLP: 447 mGycm Automated exposure control for dose reduction was used. FINDINGS: Heart normal size without pericardial effusion. No flattening of the interventricular septum reflux o f contrast into the hepatic veins. Aorta normal caliber with conventional branching anatomy. Enlarging right hilar lymph node currently 3.3 x 1.9 cm versus 1.4 cm, previously. Enlarging subcarinal lymph node and 2.0 cm versus 1.1 cm, previously. Satisfactory opacification of the pulmonary arterial system with some breathing motion artifact no de finite pulmonary embolus. Mild centrilobular emphysema. Mild diffuse bronchial wall thickening. Findings compatible with COPD. Irregular mass medial right lower lobe relatively similar in size and nearly 4.1 cm. Strandy bibasila r areas of atelectasis. No consolidation or pleural effusion. Visualized upper abdomen shows new 1.9 cm nodularity adjacent to or involving the left adrenal gland. 4.2 cm right adrenal mass versus 3.2 cm, previously. Unable to exclude metastatic disease here. Bruna rohepatic ligament lymph node now 1.2 cm versus 9 mm, previously. Bones: Lytic lesions now apparent within the T3 and T6 vertebral bodies. Also involving the right T5 posterior elements. Additional lytic soft tissue destruction of the left acromion. IMPRESSION: 1. EXAM COMPARED TO 01/24/2021. THERE HAS BEEN NEOPLASTIC PROGRESSION. WHILE THE MEDIAL RIGHT LOWER LO BE LUNG CANCER IS NEARLY STABLE AT 4.1 CM, THERE IS ENLARGING RIGHT HILAR AND SUBCARINAL LYMPHADENOPA THY. ENLARGING ADRENAL NODULES AND GASTROHEPATIC LIGAMENT LYMPHADENOPATHY. DEVELOPMENT OF OSSEOUS MET ASTATIC DISEASE AT T3, T5, T6, AND LEFT ACROMION. 2. NO DEFINITE PULMONARY EMBOLUS.
--- NOTE | 2021-05-11 14:01 | US ---
EXAMINATION TYPE: US venous doppler duplex LE DATE OF EXAM: 05/11/2021 12:37 PM COMPARISON: Prev Left leg only CLINICAL HISTORY: elevated d-dimer. Elevated D-dimer SIDE PERFORMED: Bilateral TECHNIQUE: The lower extremity deep venous system is examined utilizing real time linear array sonog izzy with graded compression, doppler sonography and color-flow sonography. VESSELS IMAGED: Common Femoral Vein Deep Femoral Vein Greater Saphenous Vein * Femoral Vein Popliteal Vein Small Saphenous Vein * Proximal Calf Veins (* superficial vessels) Right Leg: Negative for DVT Left Leg: Negative for DVT IMPRESSION: 1. Bilateral lower extremity ultrasound negative for deep venous thrombosis.
--- NOTE | 2021-05-11 14:41 | P.CONS ---
History of Present Illness - Reason for Consult Consult date: 05/11/21 safety of anticoagulation with active cancer and treatment Requesting physician: Raquel Mazariegos - History of Present Illness This is a very nice patient who presented with left calf cramps in ,had a venous doppler on 12/31/2017 which revealed DVT in left tibial vein and he was started on xarelto. There was no provocative factor for his DVT. He had hypercoaguability work up on 01/21/2018,included,anticardiolipin antibodies,factor V Leiden,protein C,anti thrombin III,homocysteine level which were normal,however,his protein S activity was less than 10%,his CBC were normal. He has 2 brothers who had DVT. He had a CT scan of chest on 06/27/2016,for an abnormal CXR,which revealed 1 cm RLL nodule and 1.7 cm right adrenal gland lesion. He had a PET scan on 07/21/2016 which did not reveal any suspicious uptake. Additional hypercoaguability work up done in January/[address] scan of chest on 03/11/2018 revealed 1.3cm RLL lung lesion,he declined biopsy and opted for observation. Repeat doppler of LLE on 03/27/2018 revealed chronic DVT. Repeat doppler on 07/07/2018 was negative for DVT. as above. The patient did not follow-up in the office after 01/14. CT scan of the chest at that time had shown lung nodule to be slightly larger at 1.4 cm. At his last visit CT chest in 3 months was recommended but the patient declined and opted for scan in 6 months instead. He continued follow-up with pulmonary medicine for the same. CT scan done by pulmonary medicine in 10/15 showed the mass to be 2.2 x 1.7 cm. He then presented in 01/16, complaining actually of left shoulder pain that was becoming more significant, and was causing some limitation of motion. Repeat CT of the chest on 01/24/21 showed enlargement in the right lower lobe mass to 3 x 4.5 x 2.8 cm. 1.4 cm right hilar node and 1.1 cm infrahilar node were again seen slightly more prominent than before. Previously noted adrenal mass was now noted to be 3.7 x 3.1 cm versus 2.3 x 1.9 cm. The patient then had a PET scan on 02/09/21 with surprisingly showed no uptake in the lung mass or adrenal mass. However there appeared to be evidence of osseous metastases in multiple areas including left proximal femoral, sacrum, and the left shoulder. There was concern for uptake in the distal esophagus. The patient then had MRI of the left shoulder on 03/16/21, showing a 4.5 cm mass causing destruction of the left scapula extending on to the scapular spine, acromion and impinging on the supraspinatus. The patient had an EGD on 04/02/21 that revealed no abnormal findings. He was referred here for further evaluation and determinations. He denied any prior history of malignancy. He has smoked between 1-1.5 packs a day for more than 40 years. This time he is smoking about half-0.75 packs a day. the patient was referred for biopsy of the left shoulder lesion, that was done on 04/17/21. This showed adenocarcinoma involving soft tissue and bone with inflammation.. His appeared to be consistent with pulmonary primary. Patient also referred to radiation oncology and started radiation after the biopsy. He completed the same on 04/26/21. He denies any fever/chills/nausea/vomiting. He states that he has not noted much improvement in range of motion of the left shoulder. The pain that he was having previously appears to be possibly mildly reduced, but he is having a new type of discomfort which she described as burning. He denies any change in respiratory status. He has noted some twinges involving his left hip. He did not speak and significant relief with Sealy which in addition cause constipation. Therefore he continues to use Tylenol and alternating Motrin. Was last seen in off by Dr. Chandler on 05/07/21 the patient has completed radiation without significant improvement in symptoms so far. Pathology is now available, confirming adenocarcinoma of pulmonary origin - The pathology and implications were discussed in detail with the patient, and his daughter who accompanied him. They were advised that he appears to have stage IV disease which is not curable. The objective of treatment one forward would be prolongation of life and palliation of symptoms. - Biomarker testing has been ordered. So far PD1 level is available showing about 5% expression. Therefore the patient is not a candidate for Keytruda in the front line. Await additional biomarker testing. They were advised that if he has an appropriate target, then he was started targeted agent in the first line. Otherwise he will be treated with combination chemotherapy with carbo platin and Alimta, in combination with Keytruda - The patient has not had much improvement in his left shoulder symptoms. He could have further benefit 2-3 weeks postradiation once inflammation improves. He reports some relief with alternating Tylenol and Motrin but continues to have difficulty at night. He does not want to utilize Sealy because of lack off efficacy as well as side effects. He was agreeable to try Percocet and a short course will be attempted. - We also discussed utilizing specific bone strengthening medication such as Xgeva or Zometa. he states that he has 4 remaining teeth with plates otherwise. He was advised to contact his dentist and obtain clearance for the same. In speaking with cardiology today there is a concern he may require anticoagulation. They have asked us to further evaluate regarding safety of AC therapy Review of Systems All systems: negative Constitutional: Reports as per HPI Past Medical History Additional Past Medical History / Comment(s): cx- stage 4 adnocarcinoma. blood clots History of Any Multi-Drug Resistant Organisms: None Reported Past Surgical History: No Surgical Hx Reported, Orthopedic Surgery Additional Past Surgical History / Comment(s): hernia Past Psychological History: No Psychological Hx Reported Smoking Status: Current every day smoker Past Alcohol Use History: Rare Past Drug Use History: Marijuana Medications and Allergies Home Medications Medication Instructions Recorded Confirmed Type Cholecalciferol (Vitamin D3) 125 mcg PO HS 04/04/21 05/14/21 History [Vitamin D3 (125 MCG = 5,000 IU)] HYDROcodone/APAP 5-325MG [[place] 1 tab PO Q6HR PRN 04/04/21 05/14/21 History 5-325] Zinc 50 mg PO HS 04/04/21 05/14/21 History Acetaminophen Tab [Tylenol Tab] 500 - 1,000 mg PO Q4H PRN 05/10/21 05/14/21 History Ibuprofen [Motrin Ib] 800 mg PO Q4H PRN 05/10/21 05/14/21 History oxyCODONE-APAP 7.5-325MG [Percocet 1 tab PO Q6HR PRN 05/10/21 05/14/21 History 7.5-325 mg] Allergies Allergy/AdvReac Type Severity Reaction Status Date / Time bee venom protein (honey bee) Allergy Swelling Verified 05/14/21 21:53 cephalexin [From Keflex] Allergy Rash/Hives Verified 05/14/21 21:53 Physical Exam Vitals: Vital Signs Temp Pulse Resp BP Pulse Ox 05/11/21 10:28 81 18 138/83 95 05/11/21 06:54 94 18 129/78 95 05/11/21 02:40 98.3 F 83 16 117/70 98 05/11/21 02:10 120/74 05/11/21 01:40 82 123/71 05/11/21 01:10 82 116/73 05/11/21 00:40 80 121/73 05/10/21 23:40 85 114/81 05/10/21 23:10 80 121/73 05/10/21 23:00 90 118/74 05/10/21 20:37 83 16 127/77 97 05/10/21 19:31 98.7 F 97 20 132/79 97 Intake and Output 05/10/21 05/11/21 05/11/21 22:59 06:59 14:59 Other: Weight 92.986 kg - Constitutional General appearance: cooperative, no acute distress - EENT Eyes: EOMI ENT: NA/AT - Respiratory Respiratory: bilateral: wheezing - Gastrointestinal General gastrointestinal: soft - Integumentary Integumentary: pale - Psychiatric Psychiatric: A&O x's 3 Results CBC & Chem 7: 05/11/21 05:29 05/11/21 05:29 Labs: Abnormal Lab Results - Last 24 Hours (Table) 05/10/21 05/10/21 05/10/21 Range/Units 20:02 20:02 20:02 RBC 3.94 L (4.30-5.90) m/uL Hgb 11.1 L (13.0-17.5) gm/dL Hct 35.7 L (39.0-53.0) % Plt Count 553 H (150-450) k/uL D-Dimer (<0.60) mg/L FEU Sodium (137-145) mmol/L Glucose 109 H (74-99) mg/dL AST (17-59) U/L Troponin I 0.094 H* (0.000-0.034) ng/mL Albumin 3.2 L (3.5-5.0) g/dL 05/10/21 05/10/21 05/11/21 Range/Units 21:47 23:49 05:29 RBC (4.30-5.90) m/uL Hgb (13.0-17.5) gm/dL Hct (39.0-53.0) % Plt Count (150-450) k/uL D-Dimer (<0.60) mg/L FEU Sodium (137-145) mmol/L Glucose (74-99) mg/dL AST (17-59) U/L Troponin I 0.084 H* 0.069 H* 0.043 H* (0.000-0.034) ng/mL Albumin (3.5-5.0) g/dL 05/11/21 05/11/21 05/11/21 Range/Units 05:29 05:29 09:23 RBC 3.54 L (4.30-5.90) m/uL Hgb 10.0 L (13.0-17.5) gm/dL Hct 32.1 L (39.0-53.0) % Plt Count (150-450) k/uL D-Dimer 0.77 H (<0.60) mg/L FEU Sodium 135 L (137-145) mmol/L Glucose 106 H (74-99) mg/dL AST 16 L (17-59) U/L Troponin I (0.000-0.034) ng/mL Albumin 2.8 L (3.5-5.0) g/dL CT scan - chest: report reviewed Venous US: report reviewed Assessment and Plan (1) Metastatic cancer Status: Acute Code(s): C79.9 - SECONDARY MALIGNANT NEOPLASM OF UNSPECIFIED SITE SNOMED Code(s): 613132510 (2) Elevated troponin Status: Acute Code(s): R77.8 - OTHER SPECIFIED ABNORMALITIES OF PLASMA PROTEINS SNOMED Code(s): 006273582 (3) Syncope Status: Acute Code(s): R55 - SYNCOPE AND COLLAPSE SNOMED Code(s): 897300462 Plan: CTA and Venous doppler negative If AC therapy is needed for cardiology purpose this is ok from onc standpoint Patient will follow-up with us in office as regulary scheduled next week.
--- NOTE | 2021-05-13 01:06 | P.DS ---
Providers Date of admission: 05/10/21 21:52 Attending physician: Dariel Mas Consults: 05/10/21 21:51 Consult Physician Routine Consulting Provider: Gavino Sevilla Consult Reason/Comments: Near-syncope, troponin elevation Do you want consulting provider notified?: Yes 05/11/21 09:31 Consult Physician Routine Consulting Provider: Leon Chandler Consult Reason/Comments: Adenocarcinoma, may need anticoagulation Do you want consulting provider notified?: Already Contacted [facility] [place] [facility] Course: Please note that the patient was not discharged but was left to go home by the bedside nurse Diagnoses: Episodes of Lightheadedness of one-day duration Elevated troponin, cleared by engraver signature for discharge Nicotine dependence Stage IV adenocarcinoma, source could be lungs as per patient report his oncologist is Dr. Chandler [place] [facility] course: This is a pleasant 61 years old male with past medical history of cancer, stage IV adenocarcinoma of left leg DVT about 8 years ago, currently not an anticoagulation Presents because of lightheadedness Of one-day duration associated with palpitations and irregular beat by the patient which lasted for about half an hour however he remains to have lightheadedness on and off so he decided to come to emergency room. Patient has been evaluated by engraver signature for elevated troponin as well, engraver signature recommended Echocardiogram showed ejection fraction of 55-60%. D-dimer was elevated at 0.77 so engraver signature ordered CTA of the chest: No pulmonary embolism. Also there is been neoplastic progression. While the medial right lower lobe lung cancer is nearly stable at 4.1 cm. There is a large and right hilar and subcarinal lymphadenopathy. Enlarging adrenal nodules and gastrohepatic ligament lymphadenopathy. Development of osseous metastatic disease at T3, T5, T6 and left acromion. While Doppler of the lower extremities was negative for DVT in both legs. Also oncology team evaluated the patient on the same day of admission, please refer to their note for more details. Paper Sample Clerk after evaluated the patient he cleared him for discharge and they want him to go to the office to get an event monitor, as such the bedside nurse actually discharged the patient home yesterday 05/11/2021 without notifying me and without the consent of our medical team.(There was no discharge order and the medication reconciliation was not done) Today 05/12/2021 I called the patient in the morning at the number provided the system [phone] and talked to the patient Anthony himself who told me he is doing well and that his lightheadedness has gone completely and that he had a good sleep and he currently he does not have any other symptoms. I updated the patient that he has an appointment with his PCP Dr. De Santiago on 05/15 and encouraged him to follow-up with his appointment and he agreed. Also I recommended to him and discussed with him the findings of the CTA of the chest above showing a progressive cancerous process and he told me he is going to call and follow up anyway with Dr. Chandler or Stephanie by the end of this coming week. Also he is aware with the need to follow-up with his engraver signature for the event monitor All his questions were answered Patient Condition at Discharge: Stable Plan - Discharge Summary New Discharge Prescriptions: No Action Cholecalciferol (Vitamin D3) [Vitamin D3 (125 MCG = 5,000 IU)] 125 mcg PO DAILY Zinc 50 mg PO DAILY HYDROcodone/APAP 5-325MG [[place] 5-325] 1 tab PO Q6HR PRN PRN Reason: Pain oxyCODONE-APAP 7.5-325MG [Percocet 7.5-325 mg] 1 tab PO Q6HR PRN PRN Reason: Pain Ibuprofen [Motrin Ib] 800 mg PO Q4H PRN PRN Reason: Pain Or Fever > 100.5 Acetaminophen Tab [Tylenol Tab] 500 - 1,000 mg PO Q4H PRN PRN Reason: Pain Or Fever > 100.5 Discharge Medication List Cholecalciferol (Vitamin D3) [Vitamin D3 (125 MCG = 5,000 IU)] 125 mcg PO DAILY 04/04/21 [History] HYDROcodone/APAP 5-325MG [[place] 5-325] 1 tab PO Q6HR PRN 04/04/21 [History] Zinc 50 mg PO DAILY 04/04/21 [History] Acetaminophen Tab [Tylenol Tab] 500 - 1,000 mg PO Q4H PRN 05/10/21 [History] Ibuprofen [Motrin Ib] 800 mg PO Q4H PRN 05/10/21 [History] oxyCODONE-APAP 7.5-325MG [Percocet 7.5-325 mg] 1 tab PO Q6HR PRN 05/10/21 [History] Follow up Appointment(s)/Referral(s): Josue Mike MD [STAFF PHYSICIAN] - 2 Weeks (Left message for goyo to call patient to [facility] visit.) Leon Chandler MD [STAFF PHYSICIAN] - 1 Week (Spoke with Kenrick, Office will notify patient.) Jose De Santiago DO [Primary Care Provider] - 05/15/21 8:20 am Activity/Diet/Wound Care/Special Instructions: Please bulk picker your 30 day event monitor at [facility] Office at [address] [place] [id number]. Discharge Disposition: HOME SELF-CARE
== END 2021-05-11 14:41 | disposition home or self-care (01) ==
LOC: EC 19:22 → 3SCARD 21:52
PROVIDERS: ADMIT Hospitalist; ATTEND Hospitalist
DX: R55 Syncope and collapse (principal); R79.89 Other specified abnormal findings of blood chemistry; R42 Dizziness and giddiness; C34.31 Malignant neoplasm of lower lobe, right bronchus or lung; C79.51 Secondary malignant neoplasm of bone; R00.2 Palpitations; I08.1 Rheumatic disorders of both mitral and tricuspid valves; J43.2 Centrilobular emphysema; E27.9 Disorder of adrenal gland, unspecified; R59.1 Generalized enlarged lymph nodes; R61 Generalized hyperhidrosis; R00.0 Tachycardia, unspecified; D64.9 Anemia, unspecified; F17.210 Nicotine dependence, cigarettes, uncomplicated; Z88.1 Allergy status to other antibiotic agents; Z91.030 Bee allergy status; Z98.890 Other specified postprocedural states; Z86.718 Personal history of other venous thrombosis and embolism; Z92.3 Personal history of irradiation; Z71.6 Tobacco abuse counseling; Z82.49 Family history of ischemic heart disease and other diseases of the circulatory system
CPT/HCPCS: 96376; 96361; 96372; 96374; 96375; 99285; 36415; 93005; 93306; 85379; 80053 ×2; 84443; 83735; 84484 ×2; 85025 ×2; 85610; 85730; 81003; 71046; 93970; 71275; G0378 ×2; J1170 ×3; Q9967; J1644

== ENCOUNTER 2021-05-14 17:24 | Emergency (ER) | payer OTHER ==
[2021-05-14 17:44] VITALS: TEMP 98.6
[2021-05-14] MEDS ORDERED: SODIUM CHLORIDE 0.9% 500 ML 500 ML IV STA (20:51)
[2021-05-14] MEDS ORDERED: HYDROmorphone 1 MG/ML 1 ML SYRINGE IVP STA ×2 (20:52→22:36)
[2021-05-14] MEDS ORDERED: ONDANSETRON 4 MG/2 ML VIAL IVP STA (20:52)
[2021-05-14 21:16] VITALS: PULSE 83; RESP 16
[2021-05-14 21:21] LABS: Basophils # (A) 0.1 k/uL (0-0.2); Basophils % (A) 1 %; Eosinophils # (A) 0.1 k/uL (0-0.7); Eosinophils % (A) 2 %; HCT 31.9 % (39.0-53.0); HGB 10.2 gm/dL (13.0-17.5); Hypochromasia Slight; Lymphocytes # (A) 1.2 k/uL (1.0-4.8); Lymphocytes % (A) 16 %; MCH 28.7 pg (25.0-35.0); MCHC 31.8 g/dL (31.0-37.0); Mean Platelet Volume 7.2; Monocytes # (A) 0.5 k/uL (0-1.0); Monocytes % (A) 6 %; Neutrophils # (A) 5.7 k/uL (1.3-7.7); Neutrophils % (A) 74 %; Platelet Count 518 k/uL (150-450); RBC 3.54 m/uL (4.30-5.90); RDW 14.2 % (11.5-15.5); WBC 7.7 k/uL (3.8-10.6)
--- NOTE | 2021-05-14 21:22 | XR ---
EXAMINATION TYPE: XR chest 2V DATE OF EXAM: 05/14/2021 COMPARISON: 05/10/2021 HISTORY: Chest pain TECHNIQUE: FINDINGS: Heart and mediastinum are normal. Lungs are clear. Diaphragm is normal. There are chest angelito ds. Bony thorax is intact. IMPRESSION: Normal chest. No change.
[2021-05-14 21:30] LABS: Partial Thromboplastin Time 26.6 sec (22.0-30.0); Prothrombin Time 10.7 sec (9.0-12.0)
[2021-05-14 21:31] LABS: ALT 14 U/L (4-49); AST 21 U/L (17-59); African American GFR (CKD) >90 (>60 ml/min/1.73 sqM); Albumin 3.2 g/dL (3.5-5.0); Alkaline Phosphatase 81 U/L (38-126); Anion Gap 8 mmol/L; Blood Urea Nitrogen 16 mg/dL (9-20); Calcium 8.8 mg/dL (8.4-10.2); Carbon Dioxide 27 mmol/L (22-30); Chloride 104 mmol/L (98-107); Glucose 131 mg/dL (74-99); Magnesium 2.1 mg/dL (1.6-2.3); Non-African American GFR(CKD) >90 (>60 ml/min/1.73 sqM); Potassium 3.8 mmol/L (3.5-5.1); Sodium 139 mmol/L (137-145); Total Bilirubin 0.5 mg/dL (0.2-1.3); Total Protein 7.1 g/dL (6.3-8.2)
--- NOTE | 2021-05-14 22:18 | ED ---
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 States bilateral shoulder blades are extremely painful. Pain increases with any movement, deep breathing, or touching the area. Denies any known injury. Has known mets to the left acromion process. Scattered bony mets. Denies any shortness of breath. Denies fever or chills. Denies any cough or congestion. States this pain has been present throughout the day today, denies any history of similar pain. Patient denies any recent rash, cough, abdominal pain, nausea, vomiting, diarrhea, constipation, back pain, numbness, tingling, dizziness, weakness, hematuria, dysuria, urinary urgency, urinary frequency, headache, visual changes, or any other complaints. - Related Data Home Medications Medication Instructions Recorded Confirmed Cholecalciferol (Vitamin D3) 125 mcg PO HS 04/04/21 05/14/21 [Vitamin D3 (125 MCG = 5,000 IU)] HYDROcodone/APAP 5-325MG [[place] 1 tab PO Q6HR PRN 04/04/21 05/14/21 5-325] Zinc 50 mg PO HS 04/04/21 05/14/21 Acetaminophen Tab [Tylenol Tab] 500 - 1,000 mg PO Q4H PRN 05/10/21 05/14/21 Ibuprofen [Motrin Ib] 800 mg PO Q4H PRN 05/10/21 05/14/21 oxyCODONE-APAP 7.5-325MG [Percocet 1 tab PO Q6HR PRN 05/10/21 05/14/21 7.5-325 mg] Allergies Allergy/AdvReac Type Severity Reaction Status Date / Time bee venom protein (honey bee) Allergy Swelling Verified 05/14/21 21:53 cephalexin [From Keflex] Allergy Rash/Hives Verified 05/14/21 21:53 Review of Systems ROS Statement: Those systems with pertinent positive or pertinent negative responses have been documented in the HPI. ROS Other: All systems not noted in ROS Statement are negative. Past Medical History Past Medical History: Cancer, Deep Vein Thrombosis (DVT) Additional Past Medical History / Comment(s): cx- stage 4 adnocarcinoma. blood clots History of Any Multi-Drug Resistant Organisms: None Reported Past Surgical History: No Surgical Hx Reported, Orthopedic Surgery Additional Past Surgical History / Comment(s): hernia Past Psychological History: No Psychological Hx Reported Smoking Status: Current every day smoker Past Alcohol Use History: Rare Past Drug Use History: Marijuana General Exam Limitations: no limitations General appearance: alert, in no apparent distress, other (This is a well- developed, well-nourished adult male in no acute distress.) ENT exam: Present: normal exam, normal oropharynx, mucous membranes moist Respiratory exam: Present: normal lung sounds bilaterally. Absent: respiratory distress, wheezes, rales, rhonchi, stridor Cardiovascular Exam: Present: regular rate, normal rhythm, normal heart sounds. Absent: systolic murmur, diastolic murmur, rubs, gallop, clicks GI/Abdominal exam: Present: soft, normal bowel sounds. Absent: distended, tenderness, guarding, rebound, rigid Extremities exam: Present: normal inspection, full ROM, normal capillary refill, other (Radial pulses 2+). Absent: tenderness, pedal edema, joint swelling, calf tenderness Back exam: Present: normal inspection, tenderness (Bilateral scapula) Neurological exam: Present: alert, oriented X3, CN II-XII intact Psychiatric exam: Present: normal affect, normal mood Skin exam: Present: warm, dry, intact, normal color. Absent: rash Course Vital Signs 05/14/21 05/14/21 17:35 21:15 Temperature 98.6 F Pulse Rate 82 83 Respiratory 18 16 Rate Blood Pressure 131/76 139/83 O2 Sat by Pulse 99 Oximetry Medical Decision Making - Medical Decision Making 61 year-old male patient presents to the emergency department for evaluation of bilateral subscapular pain that started today. Pain increases with movement, deep breathing, and palpation over the areas. Signs are unremarkable. Labs are unremarkable. Chest x-ray is negative. Discussions with daughter and review of previous imaging indicates the patient does have metastatic lesions to T3, T5, and T6. Pain does appear to follow the T6 nerve distribution and it is possible that this could be related to his disease process. Additionally an EKG showed normal sinus rhythm, patient was on a semiconductor engineer with no evidence for any irregular heartbeat or dysrhythmia. Unfortunately or unable to obtain records from the finishing manager's office regarding the abnormal rhythm found today with a Holter monitor. He has had no chest discomfort or trouble breathing while here. Again the monitor shows normal sinus rhythm so we will discharge to follow up with cardiology as soon as possible. He does have a stress test this week. He is instructed to contact his oncologist first thing in the morning. He does have Percocet at home to take. Return parameters discussed in detail. He verbalizes understanding and is discharged in stable condition. My attending is Dr. Longo. - Lab Data Result diagrams: 05/14/21 21:12 05/14/21 21:12 Lab Results 05/14/21 05/14/21 05/14/21 Range/Units 21:12 21:12 21:12 WBC 7.7 (3.8-10.6) k/uL RBC 3.54 L (4.30-5.90) m/uL Hgb 10.2 L (13.0-17.5) gm/dL Hct 31.9 L (39.0-53.0) % MCV 90.0 (80.0-100.0) fL MCH 28.7 (25.0-35.0) pg MCHC 31.8 (31.0-37.0) g/dL RDW 14.2 (11.5-15.5) % Plt Count 518 H (150-450) k/uL MPV 7.2 Neutrophils % 74 % Lymphocytes % 16 % Monocytes % 6 % Eosinophils % 2 % Basophils % 1 % Neutrophils # 5.7 (1.3-7.7) k/uL Lymphocytes # 1.2 (1.0-4.8) k/uL Monocytes # 0.5 (0-1.0) k/uL Eosinophils # 0.1 (0-0.7) k/uL Basophils # 0.1 (0-0.2) k/uL Hypochromasia Slight PT 10.7 (9.0-12.0) sec INR 1.0 (<1.2) APTT 26.6 (22.0-30.0) sec Sodium 139 (137-145) mmol/L Potassium 3.8 (3.5-5.1) mmol/L Chloride 104 (98-107) mmol/L Carbon Dioxide 27 (22-30) mmol/L Anion Gap 8 mmol/L BUN 16 (9-20) mg/dL Creatinine 0.90 (0.66-1.25) mg/dL Est GFR (CKD-EPI)AfAm >90 (>60 ml/min/1.73 sqM) Est GFR (CKD-EPI)NonAf >90 (>60 ml/min/1.73 sqM) Glucose 131 H (74-99) mg/dL Calcium 8.8 (8.4-10.2) mg/dL Magnesium 2.1 (1.6-2.3) mg/dL Total Bilirubin 0.5 (0.2-1.3) mg/dL AST 21 (17-59) U/L ALT 14 (4-49) U/L Alkaline Phosphatase 81 (38-126) U/L Troponin I (0.000-0.034) ng/mL Total Protein 7.1 (6.3-8.2) g/dL Albumin 3.2 L (3.5-5.0) g/dL 05/14/21 Range/Units 21:12 WBC (3.8-10.6) k/uL RBC (4.30-5.90) m/uL Hgb (13.0-17.5) gm/dL Hct (39.0-53.0) % MCV (80.0-100.0) fL MCH (25.0-35.0) pg MCHC (31.0-37.0) g/dL RDW (11.5-15.5) % Plt Count (150-450) k/uL MPV Neutrophils % % Lymphocytes % % Monocytes % % Eosinophils % % Basophils % % Neutrophils # (1.3-7.7) k/uL Lymphocytes # (1.0-4.8) k/uL Monocytes # (0-1.0) k/uL Eosinophils # (0-0.7) k/uL Basophils # (0-0.2) k/uL Hypochromasia PT (9.0-12.0) sec INR (<1.2) APTT (22.0-30.0) sec Sodium (137-145) mmol/L Potassium (3.5-5.1) mmol/L Chloride (98-107) mmol/L Carbon Dioxide (22-30) mmol/L Anion Gap mmol/L BUN (9-20) mg/dL Creatinine (0.66-1.25) mg/dL Est GFR (CKD-EPI)AfAm (>60 ml/min/1.73 sqM) Est GFR (CKD-EPI)NonAf (>60 ml/min/1.73 sqM) Glucose (74-99) mg/dL Calcium (8.4-10.2) mg/dL Magnesium (1.6-2.3) mg/dL Total Bilirubin (0.2-1.3) mg/dL AST (17-59) U/L ALT (4-49) U/L Alkaline Phosphatase (38-126) U/L Troponin I <0.012 (0.000-0.034) ng/mL Total Protein (6.3-8.2) g/dL Albumin (3.5-5.0) g/dL - EKG Data -: EKG Interpreted by Me EKG Comments: EKG obtained at 1748 shows normal sinus rhythm with a ventricular rate 77, RI interval 142, QRS duration 90, QT 404, QTC 457. No evidence of ST elevation or depression. - Radiology Data Radiology results: report reviewed, image reviewed Two-view x-ray of the chest is obtained. Report was reviewed in its entirety. Impression by Dr. Rodriguez shows normal chest. No change. Disposition Clinical Impression: Back pain, Irregular heart beat Disposition: HOME SELF-CARE Condition: Good Instructions (If sedation given, give patient instructions): Back Pain (ED) Additional Instructions: Take pain medication as directed. Contact your oncologist first thing in the morning. Contact finishing manager for further information regarding your heart monitoring rhythms. Return to the emergency department immediately for any new, worsening, or concerning symptoms. Is patient prescribed a controlled substance at d/c from ED?: No Referrals: Jose De Santiago DO [Primary Care Provider] - 1-2 days Time of Disposition: 22:38
[2021-05-14 23:13] VITALS: BP 138/84
== END 2021-05-14 23:11 | disposition home or self-care (01) ==
LOC: EC 17:24
DX: M54.6 Pain in thoracic spine (principal); R00.9 Unspecified abnormalities of heart beat; F17.200 Nicotine dependence, unspecified, uncomplicated; F12.90 Cannabis use, unspecified, uncomplicated
CPT/HCPCS: 36415; 93005; 80053; 83735; 84484; 85025; 85610; 85730; 71046; 99284; 96374; 96376; J1170

== ENCOUNTER 2021-06-08 08:27 | Inpatient (IN) | payer OTHER ==
[2021-06-08] MEDS ORDERED: ACETAMINOPHEN TAB 500 MG TAB PO STA (08:54)
[2021-06-08] MEDS ORDERED: IBUPROFEN 600 MG TAB PO STA (08:54)
[2021-06-08] MEDS ORDERED: VANCOMYCIN IV PER PHARMACY 1 EACH MISC MISCELLANE PRN (08:54)
[2021-06-08] MEDS ORDERED: PIPERACILLIN-TAZOBACTAM 3.375 GM in SODIUM CHLORIDE 0.9% 100 ML IVPB STA (08:54)
[2021-06-08] MEDS ORDERED: KETOROLAC 15 MG/ML 1 ML VIAL IM STA (09:00)
--- NOTE | 2021-06-08 09:24 | ED ---
General Adult HPI - General Chief complaint: Extremity Problem,Nontraumatic Stated complaint: lt knee pain Time Seen by Provider: 06/08/21 09:10 Source: patient, family, EMS, RN notes reviewed, old records reviewed Mode of arrival: EMS Limitations: no limitations - History of Present Illness Initial comments: This a 61-year-old male who presents emergency department with past medical history stage IV adenocarcinoma of the lung. Patient continues to smoke. Patient comes in today complaining of severe left knee pain. Patient states yesterday started to hurt and swell up but today was so swollen he couldn't even bend it and could not get out of bed. Patient denies any difficulty breathing shortness of breath is worsened normal. Patient denies chest pain or palpitations. Patient is unaware that he has a temperature however he does have a fever for 100.8 when he took orally. Patient denies any abdominal pain patient denies nausea vomiting. - Related Data Home Medications Medication Instructions Recorded Confirmed HYDROcodone/APAP 5-325MG [[place] 1 tab PO Q6HR PRN 04/04/21 06/08/21 5-325] Acetaminophen Tab [Tylenol Tab] 1,000 mg PO Q6H PRN 05/10/21 06/08/21 Ibuprofen [Motrin Ib] 600 mg PO Q4H PRN 05/10/21 06/08/21 oxyCODONE-APAP 7.5-325MG [Percocet 1 tab PO Q6HR PRN 05/10/21 06/08/21 7.5-325 mg] Baclofen [Lioresal] 10 mg PO BID PRN 06/08/21 06/08/21 Calcium Carbonate/Vitamin D3 1 cap PO BID 06/08/21 06/08/21 [Calcium 600 mg-D3 10 Mcg (400 Iu)] Doxycycline Monohydrate 100 mg PO BID 06/08/21 06/08/21 Folic Acid 1 mg PO HS 06/08/21 06/08/21 Gabapentin 300 mg PO BID PRN 06/08/21 06/08/21 Meclizine HCl 25 mg PO TID PRN 06/08/21 06/08/21 Prochlorperazine [Compazine] 5 mg PO TID PRN 06/08/21 06/08/21 Allergies Allergy/AdvReac Type Severity Reaction Status Date / Time bee venom protein (honey bee) Allergy Swelling Verified 06/08/21 12:19 cephalexin [From Keflex] Allergy Rash/Hives Verified 06/08/21 12:19 Review of Systems ROS Statement: Those systems with pertinent positive or pertinent negative responses have been documented in the HPI. ROS Other: All systems not noted in ROS Statement are negative. Past Medical History Past Medical History: Atrial Flutter Additional Past Medical History / Comment(s): cx- stage 4 adnocarcinoma. blood clots History of Any Multi-Drug Resistant Organisms: None Reported Past Surgical History: No Surgical Hx Reported, Orthopedic Surgery Additional Past Surgical History / Comment(s): hernia Past Psychological History: No Psychological Hx Reported Smoking Status: Current every day smoker Past Alcohol Use History: Rare Past Drug Use History: Marijuana General Exam - General Exam Comments Initial Comments: GENERAL: Patient is well-developed and well-nourished. Patient is nontoxic and well- hydrated and is in moderate distress. ENT: Neck is soft and supple. No significant lymphadenopathy is noted. Oropharynx is clear. Moist mucous membranes. Neck has full range of motion without eliciting any pain. EYES: The sclera were anicteric and conjunctiva were pink and moist. Extraocular movements were intact and pupils were equal round and reactive to light. Eyelids were unremarkable. PULMONARY: Unlabored respirations. Good breath sounds bilaterally. Shows some crackles in the right base. Patient also has some expiratory wheezing CARDIOVASCULAR: There is a regular rate and rhythm without any murmurs gallops or rubs. ABDOMEN: Soft and nontender with normal bowel sounds. SKIN: Skin is clear with no lesions or rashes and otherwise unremarkable. NEUROLOGIC: Patient is alert and oriented x3. Cranial nerves II through XII are grossly intact. Motor and sensory are also intact. Normal speech, volume and content. Symmetrical smile. MUSCULOSKELETAL: Left knee appears to have a suprapatellar effusion patient is unable to bend the knee at all. LYMPHATICS: No significant lymphadenopathy is noted PSYCHIATRIC: Normal psychiatric evaluation Limitations: no limitations Course Vital Signs 06/08/21 06/08/21 09:08 11:03 Temperature 100.8 F H 99.4 F Pulse Rate 81 Respiratory 17 Rate Blood Pressure 135/75 O2 Sat by Pulse 95 Oximetry Medical Decision Making - Medical Decision Making EKG shows sinus rhythm at 77 bpm W[place] interval report and QRS is 94 QT interval 370 QTC is 402. Patient's EKG shows no ST segment elevation or depression. Patient was unable to move his knee at all so I started the patient on antibiotics preemptively because I thought the patient might have a septic knee. X-ray showed an effusion in the suprapatellar region. I spoke with Dr. canela agreed to admit the patient admitted the patient I consulted orthopedics - Lab Data Result diagrams: 06/08/21 09:38 06/08/21 09:38 Lab Results 06/08/21 06/08/21 06/08/21 Range/Units 09:38 09:38 09:38 WBC 9.2 (3.8-10.6) k/uL RBC 3.80 L (4.30-5.90) m/uL Hgb 10.6 L (13.0-17.5) gm/dL Hct 33.2 L (39.0-53.0) % MCV 87.4 (80.0-100.0) fL MCH 27.8 (25.0-35.0) pg MCHC 31.8 (31.0-37.0) g/dL RDW 15.1 (11.5-15.5) % Plt Count 458 H (150-450) k/uL MPV 7.5 Neutrophils % 85 % Lymphocytes % 7 % Monocytes % 7 % Eosinophils % 0 % Basophils % 1 % Neutrophils # 7.8 H (1.3-7.7) k/uL Lymphocytes # 0.6 L (1.0-4.8) k/uL Monocytes # 0.7 (0-1.0) k/uL Eosinophils # 0.0 (0-0.7) k/uL Basophils # 0.1 (0-0.2) k/uL Hypochromasia Slight PT 11.0 (9.0-12.0) sec INR 1.0 (<1.2) APTT 24.9 (22.0-30.0) sec Sodium (137-145) mmol/L Potassium (3.5-5.1) mmol/L Chloride (98-107) mmol/L Carbon Dioxide (22-30) mmol/L Anion Gap mmol/L BUN (9-20) mg/dL Creatinine (0.66-1.25) mg/dL Est GFR (CKD-EPI)AfAm (>60 ml/min/1.73 sqM) Est GFR (CKD-EPI)NonAf (>60 ml/min/1.73 sqM) Glucose (74-99) mg/dL Plasma Lactic Acid Danny (0.7-2.0) mmol/L Calcium (8.4-10.2) mg/dL Total Bilirubin (0.2-1.3) mg/dL AST (17-59) U/L ALT (4-49) U/L Alkaline Phosphatase (38-126) U/L Total Protein (6.3-8.2) g/dL Albumin (3.5-5.0) g/dL Urine Color Yellow Urine Appearance Clear (Clear) Urine pH 5.5 (5.0-8.0) Ur Specific [place] 1.028 (1.001-1.035) Urine Protein Trace H (Negative) Urine Glucose (UA) Negative (Negative) Urine Ketones Negative (Negative) Urine Blood Negative (Negative) Urine Nitrite Negative (Negative) Urine Bilirubin Negative (Negative) Urine Urobilinogen <2.0 (<2.0) mg/dL Ur Leukocyte Esterase Negative (Negative) 06/08/21 06/08/21 Range/Units 09:38 09:38 WBC (3.8-10.6) k/uL RBC (4.30-5.90) m/uL Hgb (13.0-17.5) gm/dL Hct (39.0-53.0) % MCV (80.0-100.0) fL MCH (25.0-35.0) pg MCHC (31.0-37.0) g/dL RDW (11.5-15.5) % Plt Count (150-450) k/uL MPV Neutrophils % % Lymphocytes % % Monocytes % % Eosinophils % % Basophils % % Neutrophils # (1.3-7.7) k/uL Lymphocytes # (1.0-4.8) k/uL Monocytes # (0-1.0) k/uL Eosinophils # (0-0.7) k/uL Basophils # (0-0.2) k/uL Hypochromasia PT (9.0-12.0) sec INR (<1.2) APTT (22.0-30.0) sec Sodium 134 L (137-145) mmol/L Potassium 4.2 (3.5-5.1) mmol/L Chloride 102 (98-107) mmol/L Carbon Dioxide 23 (22-30) mmol/L Anion Gap 9 mmol/L BUN 17 (9-20) mg/dL Creatinine 0.91 (0.66-1.25) mg/dL Est GFR (CKD-EPI)AfAm >90 (>60 ml/min/1.73 sqM) Est GFR (CKD-EPI)NonAf 89 (>60 ml/min/1.73 sqM) Glucose 148 H (74-99) mg/dL Plasma Lactic Acid Danny 0.9 (0.7-2.0) mmol/L Calcium 9.6 (8.4-10.2) mg/dL Total Bilirubin 0.8 (0.2-1.3) mg/dL AST 17 (17-59) U/L ALT 14 (4-49) U/L Alkaline Phosphatase 104 (38-126) U/L Total Protein 8.2 (6.3-8.2) g/dL Albumin 3.6 (3.5-5.0) g/dL Urine Color Urine Appearance (Clear) Urine pH (5.0-8.0) Ur Specific [place] (1.001-1.035) Urine Protein (Negative) Urine Glucose (UA) (Negative) Urine Ketones (Negative) Urine Blood (Negative) Urine Nitrite (Negative) Urine Bilirubin (Negative) Urine Urobilinogen (<2.0) mg/dL Ur Leukocyte Esterase (Negative) Disposition Clinical Impression: Septic arthritis of knee, left Disposition: ADMITTED IP TO THIS HOSP Referrals: Jose De Santiago DO [Primary Care Provider] - 1-2 days Time of Disposition: 12:37
[2021-06-08 09:50] LABS: Basophils # (A) 0.1 k/uL (0-0.2); Basophils % (A) 1 %; Eosinophils % (A) 0 %; HCT 33.2 % (39.0-53.0); HGB 10.6 gm/dL (13.0-17.5); Hypochromasia Slight; Lymphocytes # (A) 0.6 k/uL (1.0-4.8); Lymphocytes % (A) 7 %; MCH 27.8 pg (25.0-35.0); MCHC 31.8 g/dL (31.0-37.0); MCV 87.4 fL (80.0-100.0); Mean Platelet Volume 7.5; Monocytes # (A) 0.7 k/uL (0-1.0); Monocytes % (A) 7 %; Neutrophils # (A) 7.8 k/uL (1.3-7.7); Neutrophils % (A) 85 %; Platelet Count 458 k/uL (150-450); RDW 15.1 % (11.5-15.5); WBC 9.2 k/uL (3.8-10.6)
[2021-06-08] MEDS: SODIUM CHLORIDE 0.9% 500 ML 500 ML IV SCH ×3 (09:59→11:17)
[2021-06-08] MEDS ORDERED: VANCOMYCIN 1,750 MG in SODIUM CHLORIDE 0.9% 500 ML 500 ML IVPB ONE (10:00)
[2021-06-08 10:02] LABS: ALT 14 U/L (4-49); AST 17 U/L (17-59); African American GFR (CKD) >90 (>60 ml/min/1.73 sqM); Albumin 3.6 g/dL (3.5-5.0); Alkaline Phosphatase 104 U/L (38-126); Anion Gap 9 mmol/L; Blood Urea Nitrogen 17 mg/dL (9-20); Calcium 9.6 mg/dL (8.4-10.2); Carbon Dioxide 23 mmol/L (22-30); Chloride 102 mmol/L (98-107); Glucose 148 mg/dL (74-99); Non-African American GFR(CKD) 89 (>60 ml/min/1.73 sqM); Potassium 4.2 mmol/L (3.5-5.1); Sodium 134 mmol/L (137-145); Total Bilirubin 0.8 mg/dL (0.2-1.3); Total Protein 8.2 g/dL (6.3-8.2)
[2021-06-08 10:04] LABS: Partial Thromboplastin Time 24.9 sec (22.0-30.0)
--- NOTE | 2021-06-08 10:23 | XR ---
EXAMINATION TYPE: XR shoulder complete RT DATE OF EXAM: 06/08/2021 COMPARISON: NONE HISTORY: Pain, stage IV lung cancer TECHNIQUE: Shoulder examined in 3 views FINDINGS: The humeral head articulates with the glenoid. The acromio-clavicular junction has mild hypertrophy with superior spurring. No acute fractures or dislocations are evident. No suspicious lytic or sclerotic lesions are evident. A follow up study can be performed 7-10 days from acute trauma for continued pain. IMPRESSION: 1. Normal three-view right shoulder
--- NOTE | 2021-06-08 10:26 | XR ---
EXAMINATION TYPE: XR knee complete LT DATE OF EXAM: 06/08/2021 COMPARISON: 09/29/2012 HISTORY: Trauma, pain history of lung cancer with metastases unable to bear weight TECHNIQUE: 3 view left knee FINDINGS: Moderate joint effusion is present. There is narrowing of the medial compartment joint spac e. Medial tibial plateau spurring is present. IMPRESSION: 1. Moderate degenerative changes medial compartment left knee. 2. No acute osseous abnormality radiographically. Follow up exams can be performed 7-10 days from acu te trauma for continued pain. 3. Moderate joint effusion
[2021-06-08 11:51] LABS: Appearance,Urine Clear (Clear); Bilirubin,Urine Negative (Negative); Blood,Urine Negative (Negative); Color,Urine Yellow; Glucose,Urine (UA) Negative (Negative); Ketones,Urine Negative (Negative); Leukocyte Esterase,Urine Negative (Negative); Nitrite,Urine Negative (Negative); PH, Urine 5.5 (5.0-8.0); Protein,Urine Trace (Negative); Specific Gravity,Urine 1.028 (1.001-1.035); Urobilinogen,Urine <2.0 mg/dL (<2.0)
--- NOTE | 2021-06-08 11:56 | XR ---
EXAMINATION TYPE: XR chest 2V DATE OF EXAM: 06/08/2021 COMPARISON: 05/14/2021 INDICATION: Difficulty breathing stage IV cancer TECHNIQUE: Frontal and lateral views of the chest are obtained. FINDINGS: The heart size is normal. The pulmonary vasculature is normal. The lungs are clear. No suspicious changes to suggest metastatic disease within the [id number] ar e identified. Electronic device overlies the left chest. IMPRESSION: 1. No acute pulmonary process.
--- NOTE | 2021-06-08 12:35 | P.HPIM ---
History of Present Illness This is a pleasant 61 years old male with past medical history of cancer, stage IV adenocarcinoma of the right lower lung, left leg DVT about 8 years ago, currently not an anticoagulation Presents because of pain and inability to walk in his left leg of 2 days' duration with left knee swelling and warm to touch with some tenderness. No trauma or falling. He has chronic dyspnea and coughing, but for the last 2 weeks his been having some dizziness, his PCP treated him with doxycycline was no much benefit and his oncologist started him on on meclizine. Patient denies any ear pain or ranging sounds or discharge. No chest pain or abdominal pain or vomiting or diarrhea. No urinary complaint Patient supposed to start his first chemotherapy at [facility] in [place] today. No previous chemotherapy or radiotherapy He smokes but quit 2 days ago, occasional alcohol no illicit drugs On admission he had a fever of 100.8, Labs show an unremarkable WBCs 9.2, hemoglobin 10.6. Platelet normal. INR 1.0. Basic metabolic panel and liver enzymes are unremarkable and lactic acid 0.9. Urine analysis is negative for infection. Left knee x-ray showing moderate degenerative changes moderate joint effusion Chest x-ray: No acute process. Right shoulder x-ray showing normal In the emergency room patient was started on Zosyn and IV vancomycin Review of Systems CONSTITUTIONAL: No fever, no malaise, no fatigue. HEENT: No recent visual problems or hearing problems. Denied any sore throat. CARDIOVASCULAR: No orthopnea, PND, no palpitations, no syncope. PULMONARY: No shortness of breath, no cough, no hemoptysis. GASTROINTESTINAL: No diarrhea, no nausea, no vomiting, no abdominal pain. Nor moactive bowel sounds. NEUROLOGICAL: No headaches, no weakness, no numbness. HEMATOLOGICAL: Denies any bleeding or petechiae. GENITOURINARY: Denies any burning micturition, frequency, or urgency. MUSCULOSKELETAL/RHEUMATOLOGICAL: Denies any rash , or any muscle pain. ENDOCRINE: Denies any polyuria or polydipsia. Past Medical History Past Medical History: Atrial Flutter Additional Past Medical History / Comment(s): cx- stage 4 adnocarcinoma. blood clots History of Any Multi-Drug Resistant Organisms: None Reported Past Surgical History: No Surgical Hx Reported, Orthopedic Surgery Additional Past Surgical History / Comment(s): hernia Past Psychological History: No Psychological Hx Reported Smoking Status: Current every day smoker Past Alcohol Use History: Rare Past Drug Use History: Marijuana Medications and Allergies Home Medications Medication Instructions Recorded Confirmed Type Cholecalciferol (Vitamin D3) 125 mcg PO HS 04/04/21 05/14/21 History [Vitamin D3 (125 MCG = 5,000 IU)] HYDROcodone/APAP 5-325MG [[place] 1 tab PO Q6HR PRN 04/04/21 05/14/21 History 5-325] Zinc 50 mg PO HS 04/04/21 05/14/21 History Acetaminophen Tab [Tylenol Tab] 500 - 1,000 mg PO Q4H PRN 05/10/21 05/14/21 History Ibuprofen [Motrin Ib] 800 mg PO Q4H PRN 05/10/21 05/14/21 History oxyCODONE-APAP 7.5-325MG [Percocet 1 tab PO Q6HR PRN 05/10/21 05/14/21 History 7.5-325 mg] Allergies Allergy/AdvReac Type Severity Reaction Status Date / Time bee venom protein (honey bee) Allergy Swelling Verified 06/08/21 09:13 cephalexin [From Keflex] Allergy Rash/Hives Verified 06/08/21 09:13 Physical Exam Vitals: Vital Signs Temp Pulse Resp BP Pulse Ox 06/08/21 11:03 99.4 F 06/08/21 09:08 100.8 F H 81 17 135/75 95 Intake and Output 06/07/21 06/08/21 06/08/21 22:59 06:59 14:59 Other: Weight 88.451 kg GENERAL: The patient is alert and oriented x3, not in any acute distress. Well developed, well nourished. HEENT: Pupils are round and equally reacting to light. EOMI. No scleral icterus. No conjunctival pallor. Normocephalic, atraumatic. No pharyngeal erythema. No thyromegaly. CARDIOVASCULAR: S1 and S2 present. No murmurs, rubs, or gallops. PULMONARY: Chest is clear to auscultation, no wheezing or crackles. ABDOMEN: Soft, nontender, nondistended, normoactive bowel sounds. No palpable organomegaly. - MUSCULOSKELETAL: No joint swelling or deformity. Left knee is swollen, warm and tender EXTREMITIES: No cyanosis, clubbing, or pedal edema. NEUROLOGICAL: Gross neurological examination did not reveal any focal deficits. SKIN: No rashes. No petechiae Results CBC & Chem 7: 06/08/21 09:38 06/08/21 09:38 Labs: Abnormal Lab Results - Last 24 Hours (Table) 06/08/21 06/08/21 06/08/21 Range/Units 09:38 09:38 09:38 RBC 3.80 L (4.30-5.90) m/uL Hgb 10.6 L (13.0-17.5) gm/dL Hct 33.2 L (39.0-53.0) % Plt Count 458 H (150-450) k/uL Neutrophils # 7.8 H (1.3-7.7) k/uL Lymphocytes # 0.6 L (1.0-4.8) k/uL Sodium 134 L (137-145) mmol/L Glucose 148 H (74-99) mg/dL Urine Protein Trace H (Negative) Assessment and Plan Assessment: Possible left knee septic arthritis Metastatic Stage IV adenocarcinoma of the right lower lung 4.1 cm with mediastinal lymphadenopathy, metastatic to the bones Nicotine dependence Plan: This is a pleasant 61 years old male with metastatic lung cancer presents with possible left knee septic arthritis Continue with antibiotics and consult infectious disease team. Full up blood culture Start normal saline and check orthostatic vitals, check TSH Orthopedic team consult Continue gentle hydration Labs and medication were reviewed.. Continue same treatment. Continue with symptomatic treatment. Resume home medication. Monitor lytes and vitals. DVT and GI prophylaxis. Further recommendations depends on the clinical course of the patient DVT prophylaxis: Subcutaneous heparin GI Prophylaxis: Pepcid PT/OT: Pending Prognosis is guarded
[2021-06-08] MEDS ORDERED: SODIUM CHLORIDE 0.9% 1,000 ML IV ONE (12:37)
[2021-06-08 15:40] LABS: Appearance,BF Cloudy; RBC, Body Fluid 160 /uL
[2021-06-08 15:41] LABS: Nucleated Cells, Body Fluid 29000 /uL
[2021-06-08 15:44] LABS: Mononuclear WBC,Body Fluid 9 %; Polynuclear WBC,Body Fluid 91 %; Total Cells Counted,Body Fluid 100
[2021-06-08] MEDS: HYDROcodone/APAP 7.5-325MG 1 EACH TAB PO PRN ×2 (16:02→22:39)
--- NOTE | 2021-06-08 19:21 | P.CNOR ---
History of Present Illness - [facility] Consult date: 06/08/21 Consult reason: joint pain History of present illness: 61 yo male presented to the ED via EMS due to pain in his Left knee. He states he woke up and his left knee was swollen and he was unable to ambulate on it due to the pain. Of note he was found recently to have metestatic lung CA of which he was supposed to start treatment for today. His family is in the room and helps with his history. He states pain in the knee w/o radiation. He is unable to ambulate on the knee at this time and does have pain with motion. He denies any high fevers although upon arrival he did have a low grade 100.8 fever. He states no recent illnesses. He does c/o recent shoulder pain that was similar to his knee currently and debilitating. He has no known history of gout at this time. He states no other issues at this time. no sob, cp, n, v. His daughter is a nurse in the obs unit at [employer] [facility] and she is at bedside. Review of Systems All systems: negative Constitutional: Reports as per HPI Past Medical History Past Medical History: Atrial Flutter Additional Past Medical History / Comment(s): cx- stage 4 adnocarcinoma. blood clots History of Any Multi-Drug Resistant Organisms: None Reported Past Surgical History: No Surgical Hx Reported, Orthopedic Surgery Additional Past Surgical History / Comment(s): hernia Past Anesthesia/Blood Transfusion Reactions: No Reported Reaction Past Psychological History: No Psychological Hx Reported Smoking Status: Former smoker Past Alcohol Use History: Rare Past Drug Use History: Marijuana Medications and Allergies Home Medications Medication Instructions Recorded Confirmed Type HYDROcodone/APAP 5-325MG [[place] 1 tab PO Q6HR PRN 04/04/21 06/08/21 History 5-325] Acetaminophen Tab [Tylenol Tab] 1,000 mg PO Q6H PRN 05/10/21 06/08/21 History Ibuprofen [Motrin Ib] 600 mg PO Q4H PRN 05/10/21 06/08/21 History oxyCODONE-APAP 7.5-325MG [Percocet 1 tab PO Q6HR PRN 05/10/21 06/08/21 History 7.5-325 mg] Baclofen [Lioresal] 10 mg PO BID PRN 06/08/21 06/08/21 History Calcium Carbonate/Vitamin D3 1 cap PO BID 06/08/21 06/08/21 History [Calcium 600 mg-D3 10 Mcg (400 Iu)] Doxycycline Monohydrate 100 mg PO BID 06/08/21 06/08/21 History Folic Acid 1 mg PO HS 06/08/21 06/08/21 History Gabapentin 300 mg PO BID PRN 06/08/21 06/08/21 History Meclizine HCl 25 mg PO TID PRN 06/08/21 06/08/21 History Prochlorperazine [Compazine] 5 mg PO TID PRN 06/08/21 06/08/21 History Allergies Allergy/AdvReac Type Severity Reaction Status Date / Time bee venom protein (honey bee) Allergy Swelling Verified 06/08/21 12:19 cephalexin [From Keflex] Allergy Rash/Hives Verified 06/08/21 12:19 Physical Examination Osteopathic Statement: *. No significant issues noted on an osteopathic structural exam other than those noted in the History and Physical/Consult. Patient is alert and oriented 3 appears well-nourished well-hydrated is in no acute distress. They does not appear septic. On exam there is 3+ effusion of the L knee with TTP about the knee. There is no erythema or wounds about the knee. There is notable varus deformity of the knee. There is joint line tenderness as well as scars about the knee from previous surgeries. Lower extremities with 5 out of 5 strength in all major muscle groups; Except for KF/KE on the Lt due to pain Upper extremities show 5/5 strength in all major muscle groups. There is FROM that is painless of the b/l UE and LE in all major joints. Except for Lt knee due to pain. There is mild passive ROM pain, but active ROM is very painful at this time. They are intact to light touch sensation in L2 to S1 nerve distribution. Patient has palpable dorsalis pedis was posterior tibial pulses. Compartments are soft and compressible. Patient shows a negative Homans, Moraes's, negative Babinski's negative clonus bilaterally. negative straight leg raise bilaterally. No tensioning signs. Cranial nerves II through XII are grossly intact. Overall alignment is well-maintained in the sagittal coronal planes. [] Results Lt knee films are reviewed. There are moderate to severe OA changes of the medial compartment and PF compartment of the Lt knee. No fractures or lesions noted at this time. No bony abnormalities. Rt shoulder films demonstrate intact GH joint, mild AC OA noted. No dislocation. Mild OA changes noted. No other lesions noted. - Labs Labs: Abnormal Lab Results - Last 24 Hours (Table) 06/08/21 06/08/21 06/08/21 Range/Units 09:38 09:38 09:38 RBC 3.80 L (4.30-5.90) m/uL Hgb 10.6 L (13.0-17.5) gm/dL Hct 33.2 L (39.0-53.0) % Plt Count 458 H (150-450) k/uL Neutrophils # 7.8 H (1.3-7.7) k/uL Lymphocytes # 0.6 L (1.0-4.8) k/uL ESR (0-15) mm/hr Sodium 134 L (137-145) mmol/L Glucose 148 H (74-99) mg/dL C-Reactive Protein (<1.0) mg/dL Urine Protein Trace H (Negative) 06/08/21 06/08/21 Range/Units 09:38 13:03 RBC (4.30-5.90) m/uL Hgb (13.0-17.5) gm/dL Hct (39.0-53.0) % Plt Count (150-450) k/uL Neutrophils # (1.3-7.7) k/uL Lymphocytes # (1.0-4.8) k/uL ESR 195 H (0-15) mm/hr Sodium (137-145) mmol/L Glucose (74-99) mg/dL C-Reactive Protein 16.8 H (<1.0) mg/dL Urine Protein (Negative) H & H 06/08/21 Range/Units 09:38 Hgb 10.6 L (13.0-17.5) gm/dL Hct 33.2 L (39.0-53.0) % Coagulation 06/08/21 Range/Units 09:38 INR 1.0 (<1.2) Synovial fluid Cell count: 28293 PMN: 91 RBC: 160 Crystals: pending Gram stain pending Result Diagrams: 06/08/21 09:38 06/08/21 09:38 Assessment and Plan Assessment: 61 yo male Lt knee pain Gouty flair vs septic arthritis hx Lung CA Plan: Obtained consent with patient for aspiration of Lt knee. Under sterile conditions a supeiorlateral approach to the knee was taken and the knee was aspirated. 40 cc of cloudy yellow synovial fluid was aspirated and sent to the lab for stat analysis. Discussed at length different options with pt and family. Await gram stain. Cell count is not suspicious for infection with a WBC of 29K and PMN 91. [place] Ira joint septic OA suspected at 50k however pt does have confounding factors. Await synovial crystals Cont with NSAIDs as able, consider indomethacin if gouty flair with allopurinol. Mega wrapt to Lt knee. Discussed criteria for infection and aspiration with famliy vs arthroscopic washout. Would recommend observation overnight for evaluation and continued monitoring with possible washout tomorrow depending on cultures and gout labs. They understand and are ammendable to this plan.
[2021-06-08 19:43] LABS: Synovial Fld Crystals None Seen (None Seen)
[2021-06-08] MEDS: HYDROmorphone 1 MG/ML 1 ML SYRINGE IVP PRN (21:06)
[2021-06-09] MEDS: VANCOMYCIN 1,500 MG in SODIUM CHLORIDE 0.9% 250 ML IVPB SCH ×2 (00:03→12:59)
[2021-06-09] MEDS: HYDROmorphone 1 MG/ML 1 ML SYRINGE IVP PRN ×6 (00:05→20:43)
--- NOTE | 2021-06-09 07:03 | P.CONS ---
History of Present Illness - Reason for Consult Consult date: 06/08/21 left knee septic arthritis Requesting physician: Toño Kim Sheet - Chief Complaint left knee pain x 1 day - History of Present Illness History of present illness : Patient is a 61-year-old male with a past medical history significant for stage IV adenocarcinoma of the lung current smoker for the patient has not yet been started on chemotherapy patient presenting to the ER for evaluation of left knee pain patient denies having history of any trauma or fall patient started having the pain to the left knee and did have some swelling after his visit to the [facility] to right this morning the patient could not bend or get out of the bed because of the p ain he describes the pain to be sharp intensity is almost 10 out of 10 worse with weightbearing with associated swelling no significant redness with March the patient has been evaluated by ER physician on arrival to the ER the patient did have low grade fever of 100.8 F, patient did have a normal white count with mild elevated neutrophils, patient did have a x-ray of the knee which did show joint effusion and osteoarthritic changes chest x-ray was negative patient has been evaluated by orthopedics in this patient who is status post aspirate of the left knee fluid was cloudy with 29,000 WBC 91% neutrophils crystals studies are currently pending patient was started on vancomycin has been admitted to the hospital infectious disease was consulted for further management of antibiotic therapy Review of system: CONSTITUTIONAL: Positive for weakness along with the fever. EYES: No complaint. ENT: No complaint. RESPIRATORY: No complaint. CARDIOVASCULAR: No complaint. GENITOURINARY: No complaint. GASTROINTESTINAL: No complaint. MUSCULOSKELETAL as per history of present illness INTEGUMENTARY: No complaint. PSYCHOLOGIC: No complaint. ENDOCRINE: No complaint. NEUROLOGIC: No complaint. Past medical history : Reviewed, documented below Past surgical history : Reviewed, documented below Social history: Reviewed, documented below Medications: Reviewed, as documented below EXAMINATION: Vital sigans= Reviewed and documented below GENERAL DESCRIPTION: Middle-aged male lying in bed, no distress. No tachypnea or accessory muscle of respiration use. HEENT: Shows Pallor , no scleral icterus. Oral mucous membrane is dry. NECK: Trachea central, no thyromegaly. LUNGS: Unlabored breathing. Clear to auscultation anteriorly. No wheeze or crackle. HEART: S1, S2, regular rate and rhythm. ABDOMEN: Soft, no tenderness , guarding or rigidity EXTREMITIES: Left knee with swelling mild warmth and tenderness no redness SKIN: No rash, no masses palpable. NEUROLOGICAL: The patient is awake, alert, oriented x3, mood and affect normal. LABS AND RADIOLOGY: Reviewed results see below Assessment : Patient presented to hospital with acute left knee pain which appeared to be more likely related to inflammatory arthritis as white count is only 29,000 however her underlying septic arthritis not entirely excluded possibly from gram-positive skin eilda Plan: 1-we will wait for the crystal studies to be finalized as well as cultures 2-vancomycin pharmacy to dose with a target trough of 15 while watching kidney function and Vanco trough closely. We will follow on clinical condition and cultures to further adjust medication if needed Thank you for this consultation we will follow the patient along with you Family members at the bedside, and they have multiple questions those were answered in layman term Past Medical History Past Medical History: Atrial Flutter Additional Past Medical History / Comment(s): cx- stage 4 adnocarcinoma. blood clots History of Any Multi-Drug Resistant Organisms: None Reported Past Surgical History: No Surgical Hx Reported, Orthopedic Surgery Additional Past Surgical History / Comment(s): hernia Past Psychological History: No Psychological Hx Reported Smoking Status: Current every day smoker Past Alcohol Use History: Rare Past Drug Use History: Marijuana Medications and Allergies Home Medications Medication Instructions Recorded Confirmed Type HYDROcodone/APAP 5-325MG [[place] 1 tab PO Q6HR PRN 04/04/21 06/08/21 History 5-325] Acetaminophen Tab [Tylenol Tab] 1,000 mg PO Q6H PRN 05/10/21 06/08/21 History Ibuprofen [Motrin Ib] 600 mg PO Q4H PRN 05/10/21 06/08/21 History oxyCODONE-APAP 7.5-325MG [Percocet 1 tab PO Q6HR PRN 05/10/21 06/08/21 History 7.5-325 mg] Baclofen [Lioresal] 10 mg PO BID PRN 06/08/21 06/08/21 History Calcium Carbonate/Vitamin D3 1 cap PO BID 06/08/21 06/08/21 History [Calcium 600 mg-D3 10 Mcg (400 Iu)] Doxycycline Monohydrate 100 mg PO BID 06/08/21 06/08/21 History Folic Acid 1 mg PO HS 06/08/21 06/08/21 History Gabapentin 300 mg PO BID PRN 06/08/21 06/08/21 History Meclizine HCl 25 mg PO TID PRN 06/08/21 06/08/21 History Prochlorperazine [Compazine] 5 mg PO TID PRN 06/08/21 06/08/21 History Allergies Allergy/AdvReac Type Severity Reaction Status Date / Time bee venom protein (honey bee) Allergy Swelling Verified 06/08/21 12:19 cephalexin [From Keflex] Allergy Rash/Hives Verified 06/08/21 12:19 Physical Exam Vitals: Vital Signs Temp Pulse Resp BP Pulse Ox 06/08/21 11:03 99.4 F 06/08/21 09:08 100.8 F H 81 17 135/75 95 Intake and Output 06/07/21 06/08/21 06/08/21 22:59 06:59 14:59 Other: Weight 88.451 kg Results CBC & Chem 7: 06/08/21 09:38 06/08/21 09:38 Labs: Abnormal Lab Results - Last 24 Hours (Table) 06/08/21 06/08/21 06/08/21 Range/Units 09:38 09:38 09:38 RBC 3.80 L (4.30-5.90) m/uL Hgb 10.6 L (13.0-17.5) gm/dL Hct 33.2 L (39.0-53.0) % Plt Count 458 H (150-450) k/uL Neutrophils # 7.8 H (1.3-7.7) k/uL Lymphocytes # 0.6 L (1.0-4.8) k/uL Sodium 134 L (137-145) mmol/L Glucose 148 H (74-99) mg/dL Urine Protein Trace H (Negative)
[2021-06-09] MEDS ORDERED: GABAPENTIN 300 MG CAP PO PRN (07:25)
[2021-06-09] MEDS ORDERED: BACLOFEN 10 MG TAB PO PRN (07:25)
[2021-06-09] MEDS ORDERED: PROCHLORPERAZINE 5 MG TAB PO PRN (07:25)
[2021-06-09] MEDS ORDERED: MECLIZINE 25 MG TAB PO PRN (07:25)
[2021-06-09] MEDS: HYDROcodone/APAP 7.5-325MG 1 EACH TAB PO PRN ×3 (07:40→22:57)
[2021-06-09] MEDS: SODIUM CHLORIDE 0.9% 1,000 ML IV SCH (07:41)
[2021-06-09] MEDS: HEPARIN SODIUM,PORCINE/PF 5,000 UNIT/0.5 ML SYRINGE SQ SCH ×2 (09:13→20:40)
[2021-06-09] MEDS: FAMOTIDINE 20 MG/2 ML VIAL IV SCH ×2 (10:05→20:39)
--- NOTE | 2021-06-09 11:33 | P.PN ---
Subjective Progress Note Date: 06/09/21 Principal diagnosis: Lt knee pain Lung CA Pt s/e this AM with family at bedside. He states pain in his knee still with effusion. He is unable to ambulate on the knee. states some pain in his hip as well. Denies any f/c/sob/cp. States no other issues currently. Objective - Vital Signs Vital signs: Vital Signs Temp 98.9 F 06/09/21 04:17 Pulse 76 06/09/21 04:17 Resp 16 06/09/21 04:17 BP 132/80 06/09/21 04:17 Pulse Ox 98 06/09/21 04:17 Intake & Output 06/08/21 06/09/21 06/09/21 18:59 06:59 18:59 Intake Total 1680 750 Output Total 400 Balance 1680 350 Weight 88.451 kg Intake: Intake, IV Titration 1100 750 Amount Sodium Chloride 0.9% 1, 600 500 000 ml @ 75 mls/hr IV . [id number] ONE Rx#:[id number] Vancomycin 1,500 mg In 250 Sodium Chloride 0.9% 250 ml @ 125 mls/hr IVPB Q12H [facility] Rx#:[id number] Vancomycin 1,750 mg In 500 Sodium Chloride 0.9% 500 ml 500 ml @ 167 mls/hr IVPB ONCE ONE Rx#: [id number] Oral 580 Output: Urine 400 Other: Voiding Method Urinal # Voids 1 - Exam Patient is alert and oriented 3 appears well-nourished well-hydrated is in no acute distress. They does not appear septic. On exam the patient does not appear septic There is effusion about the left knee that is 2+. There is tenderness to palpation of the knee as well as pain with motion of the knee on the left There is no erythema or warmth about the knee Upper extremities show 5/5 strength in all major muscle groups. There is FROM that is painless of the b/l UE and LE in all major joints. Except for left knee due to pain They are intact to light touch sensation in L2 to S1 nerve distribution. Patient has palpable dorsalis pedis was posterior tibial pulses. Compartments are soft and compressible. Patient shows a negative Homans, Moraes's, negative Babinski's negative clonus bilaterally. negative straight leg raise bilaterally. No tensioning signs. Cranial nerves II through XII are grossly intact. Overall alignment is well-maintained in the sagittal coronal planes. - Constitutional General appearance: Present: cooperative - Labs CBC & Chem 7: 06/08/21 09:38 06/08/21 09:38 Labs: Abnormal Lab Results - Last 24 Hours (Table) 06/08/21 06/08/21 06/08/21 Range/Units 09:38 09:38 13:03 ESR 195 H (0-15) mm/hr C-Reactive Protein 16.8 H (<1.0) mg/dL Urine Protein Trace H (Negative) Microbiology - Last 24 Hours (Table) 06/08/21 14:40 Gram Stain - Preliminary Knee - Left Body Fluid Culture - Preliminary Assessment and Plan Assessment: 61 yo male Lt knee pain with effusion Metastatic lung carcinoma Plan: Discussed with the patient and family his current signs and symptoms as well as treatment options. At this point his synovial fluid has come back negative for infection or gouty flare. Synovial white cell count was 29,000 with 91% PMNs. The initial culture shows PMNs however no organisms. Serum uric acid as well as synovial crystals are negative and do not necessarily explain his symptoms. There is some confounding factors however due to the fact that he has metastatic lung cancer. This could be related to a carcinomatosis or related to the recent radiation that he had of the knee however this is an Donny. He could have injured the knee and not known at. This could also be an osteoarthritic flare. We are attempting conservative management with oral medications as well as pain control however these are not working very well for him. We will order ultrasound of his lower extremity for DVT analysis as though is worried about this. We will reorder labs for him as well as re-aspirate the knee today and send new cultures to see if there has been any changes. We have added him for the schedule tomorrow for arthroscopic irrigation debridement as he is not improving at this time. Nothing by mouth at midnight Family is comfortable with this plan at this time.
[2021-06-09 11:34] LABS: HCT 31.1 % (39.6-50.0); HGB 9.3 g/dL (13.0-17.0); MCH 26.6 pg (27.0-32.0); MCHC 29.9 g/dL (32.0-37.0); MCV 88.9 fL (80.0-97.0); Mean Platelet Volume 9.4 fL (9.5-12.2); NRBC Per 100 WBC 0 /100 WBCS (0.0-0.0); Platelet Count 403 X 10*3/uL (140-440); RDW 15.5 % (11.5-14.5); WBC 7.04 X 10*3/uL (4.50-10.00)
[2021-06-09 12:07] LABS: African American GFR (CKD) 112.9 (60.0-200.0); BUN/Creat Ratio 15.65 Ratio (12.00-20.00); Blood Urea Nitrogen 11.8 mg/dL (9.0-27.0); Calcium 8.6 mg/dL (8.7-10.3); Chloride 101 mmol/L (96-109); Glucose 115 mg/dL (70-110); Non-African American GFR(CKD) 97.4 (60.0-200.0); Potassium 4.4 mmol/L (3.5-5.5); Sodium 135 mmol/L (135-145)
--- NOTE | 2021-06-09 12:49 | US ---
EXAMINATION TYPE: US venous doppler duplex LE LT DATE OF EXAM: 06/09/2021 11:29 AM COMPARISON: US CLINICAL HISTORY: swollen knee/lower extremity. Left knee swelling, pain, and redness SIDE PERFORMED: Left TECHNIQUE: The lower extremity deep venous system is examined utilizing real time linear array sonog izzy with graded compression, doppler sonography and color-flow sonography. VESSELS IMAGED: Common Femoral Vein Deep Femoral Vein Greater Saphenous Vein * Femoral Vein Popliteal Vein Small Saphenous Vein * Proximal Calf Veins (* superficial vessels) Left Leg: Negative for DVT Grayscale, color doppler, spectral doppler imaging performed of the deep veins of the lower extremiti es. There is normal flow, compressibility, vascular waveforms. IMPRESSION: No evidence for left lower extremity deep vein thrombosis.
--- NOTE | 2021-06-09 13:32 | P.PCN ---
Date of Procedure: 06/09/21 Preoperative Diagnosis: left knee effusion Postoperative Diagnosis: same Procedure(s) Performed: left knee aspiration Surgeon: Demetrius Zuniga Estimated Blood Loss (ml): 0 Pathology: other (Cell count, gram stain, synovial crystal analysis, aerobic/anaerobic/fungal culture) Condition: stable Disposition: floor Indications for Procedure: left knee pain/effusion Operative Findings: 16 mL of serosanguineous knee joint fluid Description of Procedure: Description of Procedure: The risk and benefits of the procedure were discussed the patient today at bedside, he is in good understanding and would like to proceed. A consent form was obtained prior to the procedure, a timeout was done at bedside with the nursing staff. Appropriate paperwork was signed and dated. Patient was in semirecumbent position, the knee was prepped with 1 chloraprep and one alcohol swab. Using a 20 gauge needle with a 20 cc syringe I then aspirated about 16 mL of serosanguineus joint fluid from knee. Patient tolerated procedure well, a bandage was placed after the aspiration. Fluid was then sent to the lab for anaerobic and aerobic cultures, cell count, Gram stain and crystal analysis
[2021-06-09 15:53] LABS: Appearance,BF Blood Tinged; Nucleated Cells, Body Fluid 2850 /uL; RBC, Body Fluid 17600 /uL
[2021-06-09 15:55] LABS: Mononuclear WBC,Body Fluid 16 %; Polynuclear WBC,Body Fluid 84 %; Total Cells Counted,Body Fluid 100
--- NOTE | 2021-06-09 17:25 | P.PN ---
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 No trauma or falling. He has chronic dyspnea and coughing, but for the last 2 weeks his been having some dizziness, his PCP treated him with doxycycline was no much benefit and his oncologist started him on on meclizine. Patient denies any ear pain or ranging sounds or discharge. No chest pain or abdominal pain or vomiting or diarrhea. No urinary complaint Patient supposed to start his first chemotherapy at [facility] in [place] today. No previous chemotherapy or radiotherapy He smokes but quit 2 days ago, occasional alcohol no illicit drugs On admission he had a fever of 100.8, Labs show an unremarkable WBCs 9.2, hemoglobin 10.6. Platelet normal. INR 1.0. Basic metabolic panel and liver enzymes are unremarkable and lactic acid 0.9. Urine analysis is negative for infection. Left knee x-ray showing moderate degenerative changes moderate joint effusion Chest x-ray: No acute process. Right shoulder x-ray showing normal In the emergency room patient was started on Zosyn and IV vancomycin 06/09/2021 Patient with left knee septic arthritis is highly suspected versus crystal induced arthropathy. Patient is currently covered with IV vancomycin per infectious disease team , left knee joint has been treated today with 16 mL of fluid taken out and sent to the lab for further testing and wound culture. Other than that he is hemodynamically stable. Fever on admission subsided. His CBC showing some evidence of hemoglobin delusion today. Broadcalcitonin monthly elevated 0.19. TSH normal 2.1, ultrasound of the leg is negative for DVT. Today I discussed the case with the patient and his at bedside, risk of nephrotoxicity with IV vancomycin explained and patient verbalized understanding and acceptance area we recommend to discontinue NSAIDs to decrease the risk of nephropathy. Objective - Vital Signs Vital signs: Vital Signs Temp 98.9 F 06/09/21 04:17 Pulse 76 06/09/21 04:17 Resp 16 06/09/21 04:17 BP 132/80 06/09/21 04:17 Pulse Ox 98 06/09/21 04:17 Intake & Output 06/08/21 06/09/2122 18:59 06:59 18:59 Intake Total 1680 750 Output Total 400 Balance 1680 350 Weight 88.451 kg Intake: Intake, IV Titration 1100 750 Amount Sodium Chloride 0.9% 1, 600 500 000 ml @ 75 mls/hr IV . [id number] ONE Rx#:[id number] Vancomycin 1,500 mg In 250 Sodium Chloride 0.9% 250 ml @ 125 mls/hr IVPB Q12H [facility] Rx#:[id number] Vancomycin 1,750 mg In 500 Sodium Chloride 0.9% 500 ml 500 ml @ 167 mls/hr IVPB ONCE ONE Rx#: [id number] Oral 580 Output: Urine 400 Other: Voiding Method Urinal Urinal # Voids 1 - Exam GENERAL: The patient is alert and oriented x3, not in any acute distress. Well developed, well nourished. HEENT: Pupils are round and equally reacting to light. EOMI. No scleral icterus. No conjunctival pallor. Normocephalic, atraumatic. No pharyngeal erythema. No thyromegaly. CARDIOVASCULAR: S1 and S2 present. No murmurs, rubs, or gallops. PULMONARY: Chest is clear to auscultation, no wheezing or crackles. ABDOMEN: Soft, nontender, nondistended, normoactive bowel sounds. No palpable organomegaly. MUSCULOSKELETAL: No joint swelling or deformity. -EXTREMITIES: No cyanosis, clubbing, or pedal edema. Left knee is swollen, warm and tender NEUROLOGICAL: Gross neurological examination did not reveal any focal deficits. SKIN: No rashes. no petechiae. - Labs CBC & Chem 7: 06/09/21 06:18 06/09/21 06:18 Labs: Abnormal Lab Results - Last 24 Hours (Table) 06/08/21 06/08/21 06/09/21 Range/Units 09:38 13:03 06:18 RBC (4.40-5.60) X 10*6/uL Hgb (13.0-17.0) g/dL Hct (39.6-50.0) % MCH (27.0-32.0) pg MCHC (32.0-37.0) g/dL RDW (11.5-14.5) % MPV (9.5-12.2) fL ESR 195 H (0-15) mm/hr Glucose (70-110) mg/dL Calcium (8.7-10.3) mg/dL C-Reactive Protein 16.8 H (<1.0) mg/dL Procalcitonin 0.19 H (0.02-0.09) ng/mL 06/09/21 06/09/21 Range/Units 06:18 06:18 RBC 3.50 L (4.40-5.60) X 10*6/uL Hgb 9.3 L (13.0-17.0) g/dL Hct 31.1 L (39.6-50.0) % MCH 26.6 L (27.0-32.0) pg MCHC 29.9 L (32.0-37.0) g/dL RDW 15.5 H (11.5-14.5) % MPV 9.4 L (9.5-12.2) fL ESR (0-15) mm/hr Glucose 115 H (70-110) mg/dL Calcium 8.6 L (8.7-10.3) mg/dL C-Reactive Protein (<1.0) mg/dL Procalcitonin (0.02-0.09) ng/mL Microbiology - Last 24 Hours (Table) 06/08/21 09:22 Blood Culture - Preliminary Blood No Growth after 24 hours 06/08/21 09:40 Blood Culture - Preliminary Blood No Growth after 24 hours 06/08/21 14:40 Gram Stain - Preliminary Knee - Left Body Fluid Culture - Preliminary Assessment and Plan Assessment: Possible left knee septic arthritis Metastatic Stage IV adenocarcinoma of the right lower lung 4.1 cm with mediastinal lymphadenopathy, metastatic to the bones Nicotine dependence Plan: This is a pleasant 61 years old male with metastatic lung cancer presents with possible left knee septic arthritis Continue with antibiotics and consult infectious disease team. Full up blood culture and wound culture. Follow-up knee fluid aspirated for possible [place] Continue with gentle hydration Orthopedic team consult. Continue gentle hydration Labs and medication were reviewed.. Continue same treatment. Continue with symptomatic treatment. Resume home medication. Monitor lytes and vitals. DVT and GI prophylaxis. Further recommendations depends on the clinical course of the patient DVT prophylaxis: Subcutaneous heparin GI Prophylaxis: Pepcid PT/OT: Pending Prognosis is guarded
[2021-06-09] MEDS: FOLIC ACID 1 MG TAB PO SCH (20:39)
[2021-06-09] MEDS: CALCIUM CARB-VIT D 500 MG-5 MCG TAB PO SCH (20:39)
[2021-06-09] MEDS ORDERED: INDOMETHACIN 25 MG CAP PO SCH (21:00)
[2021-06-09 23:27] LABS: Synovial Fld Crystals None Seen (None Seen)
[2021-06-10] MEDS: HYDROmorphone 1 MG/ML 1 ML SYRINGE IVP PRN ×7 (00:10→21:35)
[2021-06-10] MEDS: VANCOMYCIN 1,500 MG in SODIUM CHLORIDE 0.9% 250 ML IVPB SCH ×2 (00:10→12:29)
[2021-06-10] MEDS: SODIUM CHLORIDE 0.9% 1,000 ML IV SCH (03:12)
--- NOTE | 2021-06-10 08:10 | P.PN ---
Progress Note - Text Progress Note Date: 06/10/21 [facility] Spine Progress Note SUBJECTIVE: Patient continues to have debilitating left knee pain with swelling. Re- aspiration performed yesterday showed no infectious change. Cultures are still pending. There is still high suspicion for potential septic arthritis. Discussed with patient at length and his family. At this time hes has elected to undergo arthroscopic debridement and irrigation for suspected underlying septic arthritis. His daughter is at bedside and they understand the limitations of surgery as well as the possibility that this continues and needs further washouts. OBJECTIVE: Vital signs stable General: AOX3, NAD Incision CDI Motor Exam: RUE: 08/30 SA, EF, EE, WF, WE, Intrinsic, Director Of Events LUE: 08/30 SA, EF, EE, WF, WE, Intrinsic, Director Of Events RLE: 08/30 HF, KE, KF, DF, PF, EHL, FHL LLE: 08/30 HF, KE, KF, DF, PF, EHL, FH painful with knee effusion Reflexes: 2/4 in UE and LE b/l SILT C5-T1 and L2-S1 Dermatomal deficit: [] +distal pulses palpable Negative hoffmans b/l Negative babinski b/l No clonus Painful passive range of motion of left knee, effusion 2+. No erythema. Inability to ambulate. ASSESSMENT: 61-year-old male left knee pain, effusion, high suspicion septic arthritis versus gouty flare versus carcinomatosis PLAN: Orthopedic Surgery Risk Review Anthony Purcell is a 61 yo male presenting for evaluation of sudden onset Lt knee pain, inability to ambulate suddenly when he woke up on Friday AM. It was my pleasure to have seen and examined Anthony Purcell. In our visit today we have had a chance to go over subjective complaints, physical examination findings and treatments including the natural course history without intervention and various interventional options. His imaging demonstrates no acute fractures, OA changes medial joint collapse. On physical exam, Anthony demonstrates pain with motion of Lt knee and leg with 2+ effusion and TTP, which is NV intact at this time. I have explained to the patient that this fracture needs stabilization. Based on the patients imaging, physical exam, and the rapid progression and disabling nature of her symptoms, at this time I recommend surgery in the form or a: Arthroscopic irrigation and debridement I discussed the risk and benefits of this procedure at length with Anthony Purcell and his family who have been at bedside. Questions were invited and answered, and the patient wishes to proceed as outlined below. Currently, I am recommendin. Lt knee arthroscopic irrigation and debridement 2. Review of surgical risks and benefits as well as an educational packet on the proposed surgical procedure. Risks: All surgical procedures come with inherent risks, including those related to positioning, anesthesia, intraoperative findings, and postoperative complications. It is important to understand that surgery does not come with any guarantee of a successful outcome as complications and adverse events are always possible. The patient was given a handout discussing the surgical procedure and risks associated with the intervention, both of which were discussed with the patient. These risks include but are not limited to the following: - Experiencing same, different or even worse symptoms compared to before surgery. - Requiring further surgery or other forms of treatment presently or at some time in the future . - On an extreme but fortunately relatively rare basis severe complication such as blindness, stroke, heart attack, temporary and/or permanent nerve injury, paralysis, coma, or may occur, sometimes without known explanation. - Surgical complications may include but are not limited to risk of infection, fluid accumulation in the surgical dissection site, including a seroma or hematoma, that requires additional surgery, wound drainage, bleeding, new numbness or weakness, vision changes/loss, spinal fluid leakage, non-healing and/or infected incision, headaches, difficulty or inability to swallow, hoarseness, hemopneumothorax, pneumothorax, injury to nerves, spinal cord, bl ood vessels, lymphatics or other vital organs (i.e., bowel injury, injury to the great vessels); heterotopic bone formation; complications related to the hardware such as screws, rods, including misplaced hardware, device failure, hardware fracture/breakage, or hardware loosening; retained surgical instrumentations or devices and the need for further surgery. - Medical risks of the planned surgery include but are not limited to generalized Infections to the whole body or local areas outside of the surgical site (sepsis), heart attack, bleeding, anaphylaxis, meningitis, seizure, ep ilepsy, hearing loss, burn kessler, laceration of the head or other areas of the body, bruising, hypersensitivity of the skin, bladder over distension; allergic reaction; shoulder injury related to positioning; fat, blood and air clots to other areas of the body like heart, lungs, brain; failure of internal organs such as lungs, kidneys, liver and excessive bleeding. If blood transfusions are necessary, note that transfusions may cause intolerance reactions such as anaphylaxis or other complex reactions. Despite best efforts, the results of surgery might not heal in terms of bone, soft tissues such as skin, fascia, ligaments, and joints. [facility] has multiple operating rooms with single and overlapping rooms running daily. They currently function under the required guidelines as produced by the [facility] Finance Committee with regards to the overlapping rooms and will continue to comply with changes to this policy as they occur. The requirements include and are complied with as follows: (1) the critical portions of the overlapping rooms will not occur at the same time, (2) the attending physician will be physically present during the critical portions of the procedure and immediately available during the entire case, and (3) a back-up attending is designated should the primary attending not be immediately available. The patient has had a chance to review all the listed information, has been given print outs detailing this information, and has had all his/her questions answered to their satisfaction. It was my pleasure to have seen and examined Anthony Purcell. In our visit today we have had a chance to go over my understanding of our patient's current condition, the natural course history without intervention and various interven tional options. Questions were invited and answered, and the patient wishes to proceed as outlined above. I have seen and examined the patient for 25 minutes and we have spent more than 50% of the time in repeat and detailed counseling about the patient's condition, its natural course history with out and as much as can be predicted with surgery and re-review of various surgical treatment options. In conclusion, Anthony Purcell requested we proceed with the above suggested surgery and are willing to accept risks and limitations of the suggested surgery as nature of the disease process and our best attempts at treatment for the condition. Thank you again for allowing us to be part of your patient's care. Please don't hesitate to contact me if you have any further questions. Signed and authenticated by: Anthony Rodriguez DO [facility] Advanced Orthopedics and Spine Complex and Minimally Invasive Spine Surgery [address] [facility], [address] [address]
[2021-06-10] MEDS ORDERED: PROPOFOL 10 MG/ML 20 ML VIAL IV ONE (08:12)
[2021-06-10] MEDS ORDERED: fentaNYL (PF) 50 MCG/ML 2 ML AMP ONE (08:12)
[2021-06-10] MEDS ORDERED: IV FLUID CONTINUATION 1,000 ML IV ONE (08:12)
[2021-06-10] MEDS ORDERED: MIDAZOLAM 2 MG/2 ML VIAL ONE (08:12)
[2021-06-10] MEDS ORDERED: BUPIVACAINE (PF) 0.25% 30 ML VIAL SQ ONE ×2 (08:34→09:03)
--- NOTE | 2021-06-10 09:51 | P.PN ---
Subjective Progress Note Date: 06/09/21 Principal diagnosis: Possible left knee septic arthritis Patient is a 61-year-old male with a past medical history significant for lung cancer advances started chemotherapy admitted to the hospital with left knee pain and swelling concerning for possible septic arthritis in this patient who is status post aspirate of the left knee on 06/08/2021 crystals were negative cultures are pending. On today's evaluation that is 06/09/2021, the patient remains to be afebrile, patient is still complaining of pain and swelling to the left knee area. Has slight worsening, the patient denies having any chest pain shortness of breath or cough no abdominal pain no diarrhea Objective - Vital Signs Vital signs: Vital Signs Temp 98.9 F 06/09/21 04:17 Pulse 76 06/09/21 04:17 Resp 16 06/09/21 04:17 BP 132/80 06/09/21 04:17 Pulse Ox 98 06/09/21 04:17 Intake & Output 06/08/21 06/09/21 06/09/21 18:59 06:59 18:59 Intake Total 1680 750 Output Total 400 Balance 1680 350 Weight 88.451 kg Intake: Intake, IV Titration 1100 750 Amount Sodium Chloride 0.9% 1, 600 500 000 ml @ 75 mls/hr IV . [id number] ONE Rx#:[id number] Vancomycin 1,500 mg In 250 Sodium Chloride 0.9% 250 ml @ 125 mls/hr IVPB Q12H ALEENA Rx#:[id number] Vancomycin 1,750 mg In 500 Sodium Chloride 0.9% 500 ml 500 ml @ 167 mls/hr IVPB ONCE ONE Rx#: [id number] Oral 580 Output: Urine 400 Other: Voiding Method Urinal Urinal # Voids 1 - Exam GENERAL DESCRIPTION: An middle-aged male lying in bed in no distress RESPIRATORY SYSTEM: Unlabored breathing , decreased breath sounds at bases HEART: S1 S2 regular rate and rhythm , ABDOMEN: Soft , no tenderness EXTREMITIES: Left he did have some swelling and warmth no redness - Labs CBC & Chem 7: 06/09/21 06:18 06/09/21 06:18 Labs: Abnormal Lab Results - Last 24 Hours (Table) 06/08/21 06/08/21 06/09/21 Range/Units 09:38 13:03 06:18 RBC (4.40-5.60) X 10*6/uL Hgb (13.0-17.0) g/dL Hct (39.6-50.0) % MCH (27.0-32.0) pg MCHC (32.0-37.0) g/dL RDW (11.5-14.5) % MPV (9.5-12.2) fL ESR 195 H (0-15) mm/hr Glucose (70-110) mg/dL Calcium (8.7-10.3) mg/dL C-Reactive Protein 16.8 H (<1.0) mg/dL Procalcitonin 0.19 H (0.02-0.09) ng/mL 06/09/21 06/09/21 Range/Units 06:18 06:18 RBC 3.50 L (4.40-5.60) X 10*6/uL Hgb 9.3 L (13.0-17.0) g/dL Hct 31.1 L (39.6-50.0) % MCH 26.6 L (27.0-32.0) pg MCHC 29.9 L (32.0-37.0) g/dL RDW 15.5 H (11.5-14.5) % MPV 9.4 L (9.5-12.2) fL ESR (0-15) mm/hr Glucose 115 H (70-110) mg/dL Calcium 8.6 L (8.7-10.3) mg/dL C-Reactive Protein (<1.0) mg/dL Procalcitonin (0.02-0.09) ng/mL Microbiology - Last 24 Hours (Table) 06/08/21 09:22 Blood Culture - Preliminary Blood No Growth after 24 hours 06/08/21 09:40 Blood Culture - Preliminary Blood No Growth after 24 hours 06/08/21 14:40 Gram Stain - Preliminary Knee - Left Body Fluid Culture - Preliminary Assessment and Plan (1) Left knee pain Current Visit: Yes Status: Acute Code(s): M25.562 - PAIN IN LEFT KNEE SNOMED Code(s): 7246475907 (2) Septic arthritis of knee, left Current Visit: Yes Status: Acute Code(s): M00.9 - PYOGENIC ARTHRITIS, UNSPECIFIED SNOMED Code(s): 756498214 Plan: Patient presented to hospital with left knee pain and swelling with concern for inflammatory versus septic arthritis initially white count was not significantly elevated though did have a healthy a combination of fluid quickly with a question of possible hemarthrosis, patient is scheduled for repeat aspirate today. Will be followed continue with the vancomycin and monitor clinical course closely, multiple family member at the bedside questions were answered Time with Patient: Less than 30
[2021-06-10] MEDS: CALCIUM CARB-VIT D 500 MG-5 MCG TAB PO SCH ×2 (10:52→20:11)
[2021-06-10] MEDS: HYDROcodone/APAP 7.5-325MG 1 EACH TAB PO PRN (10:52)
[2021-06-10] MEDS: FAMOTIDINE 20 MG/2 ML VIAL IV SCH ×2 (10:52→20:11)
[2021-06-10] MEDS ORDERED: VANCOMYCIN TROUGH DUE 1 EACH MISC MISCELLANE ONE (11:00)
[2021-06-10] MEDS: HEPARIN SODIUM,PORCINE/PF 5,000 UNIT/0.5 ML SYRINGE SQ SCH ×2 (11:06→20:12)
--- NOTE | 2021-06-10 11:12 | P.OP ---
Date of Procedure: 06/10/21 Preoperative Diagnosis: 1. Lt knee septic arthritis vs gouty flair vs carcinomatosis 2. INability to ambulate 3. Metestatic Lung CA Postoperative Diagnosis: 1. Lt knee septic arthritis vs gouty flair vs carcinomatosis 2. INability to ambulate 3. Metestatic Lung CA 4. Posterior horn medial meniscal tear 5. Grade IV chondromalacia Tricompartmental 6. Large Medial plical band Procedure(s) Performed: 1. Incision and drainage with arthroscopic irrigation and debridment of Lt knee 2. Partial medial menisectomy 3. Synovectomy minor with plical removal 4. MFC chondroplasty 5. PF chondroplasty Implants: None Anesthesia: GETA Surgeon: Anthony Rodriguez Estimated Blood Loss (ml): 5 IV fluids (ml): 400 Urine output (ml): 0 Pathology: other (Lt knee synovium to plathology, lt knee fluid to lab) Condition: stable Disposition: PACU Indications for Procedure: Orthopedic Surgery Risk Review Anthony Purcell is a 61-year-old male presenting for evaluation of sudden onset left knee pain pain, inability to ambulate after no injury. It was my pleasure to have seen and examined Anthony Purcell. In our visit today we have had a chance to go over subjective complaints, physical examination findings and treatments including the natural course history without intervention and various interventional options. His imaging demonstrates joint space narrowing tricompartmental arthritic changes no fracture with large effusion. On physical exam, Anthony Purcell demonstrates pain with motion of left knee passively and actively is inability to ambulate and has been for now for 2-3 days. He states exquisite pain with any motion of the left knee he has 2+ effusion which has been aspirated twice. The left lower extremity, which is NV intact at this time. I have explained to the patient that this fracture needs stabilization. Based on the patients imaging, physical exam, and the rapid progression and disabling nature of her symptoms, at this time I recommend surgery in the form or a: Incision and drainage with arthroscopic irrigation debridement left knee I discussed the risk and benefits of this procedure at length with Anthony Purcell and his family. Questions were invited and answered, and the patient wishes to proceed as outlined below. Currently, I am recommendin. Incision and drainage with arthroscopic irrigation debridement left knee 2. Review of surgical risks and benefits as well as an educational packet on the proposed surgical procedure. Risks: All surgical procedures come with inherent risks, including those related to positioning, anesthesia, intraoperative findings, and postoperative complications. It is important to understand that surgery does not come with any guarantee of a successful outcome as complications and adverse events are always possible. The patient was given a handout discussing the surgical procedure and risks associated with the intervention, both of which were discussed with the patient. These risks include but are not limited to the following: - Experiencing same, different or even worse symptoms compared to before surgery. - Requiring further surgery or other forms of treatment presently or at some time in the future . - On an extreme but fortunately relatively rare basis severe complication such as blindness, stroke, heart attack, temporary and/or permanent nerve injury, paralysis, coma, or may occur, sometimes without known exp lanation. - Surgical complications may include but are not limited to risk of infection, fluid accumulation in the surgical dissection site, including a seroma or hematoma, that requires additional surgery, wound drainage, bleeding, new numbness or weakness, vision changes/loss, spinal fluid leakage, non-healing and/or infected incision, headaches, difficulty or inability to swallow, hoarse ness, hemopneumothorax, pneumothorax, injury to nerves, spinal cord, blood vessels, lymphatics or other vital organs (i.e., bowel injury, injury to the great vessels); heterotopic bone formation; complications related to the hardware such as screws, rods, including misplaced hardware, device failure, hardware fracture/breakage, or hardware loosening; retained surgical instrumentations or devices and the need for further surgery. - Medical risks of the planned surgery include but are not limited to generalized Infections to the whole body or local areas outside of the surgical site (sepsis), heart attack, bleeding, anaphylaxis, meningitis, seizure, epilepsy, hearing loss, burn kessler, laceration of the head or other areas of the body, bruising, hypersensitivity of the skin, bladder over distension; allergic reaction; shoulder injury related to positioning; fat, blood and air clots to other areas of the body like heart, lungs, brain; failure of internal organs such as lungs, kidneys, liver and excessive bleeding. If blood transfusions are necessary, note that transfusions may cause intolerance reactions such as anaphylaxis or other complex reactions. Despite best efforts, the results of surgery might not heal in terms of bone, soft tissues such as skin, fascia, ligaments, and joints. [facility] has multiple operating rooms with single and overlapping rooms running daily. They currently function under the required guidelines as produced by the [facility] with regards to the overlapping rooms and will continue to comply with changes to this policy as they occur. The requirements include and are complied with as follows: (1) the critical portions of the overlapping rooms will not occur at the same time, (2) the attending physician will be physically present during the critical portions of the procedure and immediately available during the entire case, and (3) a back-up attending is designated should the primary attending not be immediately available. The patient has had a chance to review all the listed information, has been given print outs detailing this information, and has had all his/her questions answered to their satisfaction. It was my pleasure to have seen and examined Anthony Purcell. In our visit today we have had a chance to go over my understanding of our patient's current conditi on, the natural course history without intervention and various interventional options. Questions were invited and answered, and the patient wishes to proceed as outlined above. I have seen and examined the patient for 25 minutes and we have spent more than 50% of the time in repeat and detailed counseling about the patient's condition, its natural course history with out and as much as can be predicted with surgery and re-review of various surgical treatment options. In conclusion, Anthony Purcell and his family his and his daughter who at bedside requested we proceed with the above suggested surgery and are willing to accept risks and limitations of the suggested surgery as nature of the disease process and our best attempts at treatment for the condition. Thank you again for allowing us to be part of your patient's care. Please don't hesitate to contact me if you have any further questions. Signed and authenticated by: Anthony Rodriguez DO [facility] Orthopedics and Spine Complex and Minimally Invasive Spine Surgery [address] [address] Description of Procedure: The patient was seen and examined in the preoperative area. All preoperative protocols were followed. Informed consent was obtained risks and benefits of the procedure were discussed at length. Risks including bleeding infection damage to the surrounding tissue and risk of reoperation were discussed with the patient. Risk of anesthesia up to and including was a discussed with the patient. These are outlined in the risk reviewed. They were willing to accept these risks and all of the risks of surgery. The patient was given a weight- based dose of antibiotics in the form of vancomycin from the floor. The patient was seen and evaluated by the anesthesia team who deemed them fit for surgery. The site was marked, the patient was willing to proceed with the procedure. The patient was transferred to the operative suite by the Department of anesthesia. There were then drifted off to sleep by the department of anesthesia and GETA anesthesia was used. Once adequate anesthesia had been obtained the patient was carefully transferred to the operative bed. All bony prominences were padded accordingly. SCDs were placed on the nonoperative lower extremities. Arms were well padded. Left lower extremity was exposed tourniquet was placed on the patient's left upper thigh was placed in arthroscopic leg lizarraga he was well secured and padded to the bed. The opposite leg was padded as well. Preoperative briefing was done with the operative team and everyone was ready for the procedure to start. The patients left lower extremity was then prepped and draped in the normal sterile fashion. Timeout was then performed and all parties in agreement with the procedure to be performed. Standard anterolateral portal was made using a skin knife the trochanter blunt was introduced into the knee followed by the arthroscope. The fluid from the initial access to the joint was sent for culture. It was straw-colored mildly cloudy and looked like normal synovial fluid. Diagnostic arthroscopy ensued. The patient is tracked prepped and all arthritis with chondral malacia grade 4 patient alert plica band medial which causes erosion across of the femoral condyle and the medial side. There is large osteophytes over the medial and lateral femoral condyles. ACL intact PCL intact medial lateral compartments intact medial meniscus shows a radial tear along the posterior mid body portion and posterior horn. A medial portal was then made and a shaver introduced and performed a synovectomy and then a biopsy of the synovium. We then performed partial medial meniscectomy to remove this area. We did partial chondroplasty of mediofemoral condyle medial tibial plateau. Access the lateral aspect of the joint performed limited chondroplasty in this area. The gutters were clear. He then perform synovectomy removing the plical band of the medial aspect. We then performed a patellofemoral chondroplasty. He then irrigated the wound and the knee with 6 L of sterile saline. Once it was irrigated we inspected and everything was stable. The instruments removed the scope was removed and excess fluid evacuated. The knee was then injected with local anesthetic and the wounds were closed loosely with nylon stitch in a simple fashion. The patient was then transferred back to their hospital bed. There were awakened by department of anesthesia having tolerated the procedure very well with no complications. The patient was then transported to the postoperative care unit in stable condition.
--- NOTE | 2021-06-10 15:51 | P.PN ---
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 No trauma or falling. He has chronic dyspnea and coughing, but for the last 2 weeks his been having some dizziness, his PCP treated him with doxycycline was no much benefit and his oncologist started him on on meclizine. Patient denies any ear pain or ranging sounds or discharge. No chest pain or abdominal pain or vomiting or diarrhea. No urinary complaint Patient supposed to start his first chemotherapy at [facility] in [place] today. No previous chemotherapy or radiotherapy He smokes but quit 2 days ago, occasional alcohol no illicit drugs On admission he had a fever of 100.8, Labs show an unremarkable WBCs 9.2, hemoglobin 10.6. Platelet normal. INR 1.0. Basic metabolic panel and liver enzymes are unremarkable and lactic acid 0.9. Urine analysis is negative for infection. Left knee x-ray showing moderate degenerative changes moderate joint effusion Chest x-ray: No acute process. Right shoulder x-ray showing normal In the emergency room patient was started on Zosyn and IV vancomycin 06/09/2021 Patient with left knee septic arthritis is highly suspected versus crystal induced arthropathy. Patient is currently covered with IV vancomycin per infectious disease team , left knee joint has been treated today with 16 mL of fluid taken out and sent to the lab for further testing and wound culture. Other than that he is hemodynamically stable. Fever on admission subsided. His CBC showing some evidence of hemoglobin delusion today. Broadcalcitonin monthly elevated 0.19. TSH normal 2.1, ultrasound of the leg is negative for DVT. Today I discussed the case with the patient and his at bedside, risk of nephrotoxicity with IV vancomycin explained and patient verbalized understanding and acceptance area we recommend to discontinue NSAIDs to decrease the risk of nephropathy. 06/10/2011 Patient underwent incision and drainage of his left knee arthritis with arthroscopic irrigation and debridement of the left knee showing miniscule tear and grade 4 chondromalacia compartment per orthopedic team. Culture from the aspirate still pending, suspected septic arthritis versus metastatic disease versus crystal arthropathy. He had low-grade temperature yesterday 99.8, no fever today. No other new complaint. Patient still on IV vancomycin and normal saline at 50 mL per hour Objective - Vital Signs Vital signs: Vital Signs Temp 98.8 F 06/10/21 03:49 Pulse 78 06/10/21 03:49 Resp 18 06/10/21 03:49 BP 132/76 06/10/21 03:49 Pulse Ox 97 06/10/21 03:49 Intake & Output 06/09/21 06/10/21 06/10/21 18:59 06:59 18:59 Intake Total 900 850 Balance 900 850 Intake: Intake, IV Titration 900 850 Amount Sodium Chloride 0.9% 1, 600 000 ml @ 50 mls/hr IV . Q20H [facility] Rx#:[id number] Sodium Chloride 0.9% 1, 900 000 ml @ 75 mls/hr IV . [id number] [facility] Rx#:[id number] Vancomycin 1,500 mg In 250 Sodium Chloride 0.9% 250 ml @ 125 mls/hr IVPB Q12H [facility] Rx#:[id number] Other: Voiding Method Urinal Urinal # Voids 2 3 - Exam GENERAL: The patient is alert and oriented x3, not in any acute distress. Well developed, well nourished. HEENT: Pupils are round and equally reacting to light. EOMI. No scleral icterus. No conjunctival pallor. Normocephalic, atraumatic. No pharyngeal erythema. No thyromegaly. CARDIOVASCULAR: S1 and S2 present. No murmurs, rubs, or gallops. PULMONARY: Chest is clear to auscultation, no wheezing or crackles. ABDOMEN: Soft, nontender, nondistended, normoactive bowel sounds. No palpable organomegaly. MUSCULOSKELETAL: No joint swelling or deformity. -EXTREMITIES: No cyanosis, clubbing, or pedal edema. Left knee is swollen, warm and tender NEUROLOGICAL: Gross neurological examination did not reveal any focal deficits. SKIN: No rashes. no petechiae. - Labs CBC & Chem 7: 06/09/21 06:18 06/09/21 06:18 Labs: Abnormal Lab Results - Last 24 Hours (Table) 06/09/21 06/09/21 06/09/21 Range/Units 06:18 06:18 06:18 RBC 3.50 L (4.40-5.60) X 10*6/uL Hgb 9.3 L (13.0-17.0) g/dL Hct 31.1 L (39.6-50.0) % MCH 26.6 L (27.0-32.0) pg MCHC 29.9 L (32.0-37.0) g/dL RDW 15.5 H (11.5-14.5) % MPV 9.4 L (9.5-12.2) fL Glucose 115 H (70-110) mg/dL Calcium 8.6 L (8.7-10.3) mg/dL Procalcitonin 0.19 H (0.02-0.09) ng/mL Microbiology - Last 24 Hours (Table) 06/09/21 12:25 Gram Stain - Preliminary Knee - Left Wound Culture - Preliminary 06/09/21 12:25 Body Fluid Culture - Preliminary Knee - Left 06/09/21 12:25 Fungal Culture - Preliminary Knee - Left 06/09/21 12:25 Anaerobic Culture - Preliminary Knee - Left 06/09/21 12:25 Anaerobic Culture - Preliminary Knee - Left 06/08/21 09:22 Blood Culture - Preliminary Blood No Growth after 24 hours 06/08/21 09:40 Blood Culture - Preliminary Blood No Growth after 24 hours 06/08/21 14:40 Gram Stain - Preliminary Knee - Left Body Fluid Culture - Preliminary Assessment and Plan Assessment: Possible left knee septic arthritis Metastatic Stage IV adenocarcinoma of the right lower lung 4.1 cm with mediastinal lymphadenopathy, metastatic to the bones Nicotine dependence Plan: This is a pleasant 61 years old male with metastatic lung cancer presents with possible left knee septic arthritis Continue with antibiotics IV vancomycin and consult infectious disease team. Full up blood culture and wound culture. Follow-up knee fluid aspirated for possible crystal-induced arthropathy Continue with gentle hydration. Monitor creatinine Orthopedic team consult. Labs and medication were reviewed.. Continue same treatment. Continue with symptomatic treatment. Resume home medication. Monitor lytes and vitals. DVT and GI prophylaxis. Further recommendations depends on the clinical course of the patient DVT prophylaxis: Subcutaneous heparin GI Prophylaxis: Pepcid Prognosis is guarded
[2021-06-10] MEDS ORDERED: IBUPROFEN 200 MG TAB PO STA (17:53)
[2021-06-10] MEDS: ACETAMINOPHEN TAB 325 MG TAB PO PRN (18:28)
[2021-06-10] MEDS: FOLIC ACID 1 MG TAB PO SCH (20:11)
--- NOTE | 2021-06-10 21:36 | P.PN ---
Subjective Progress Note Date: 06/10/21 Principal diagnosis: Possible left knee septic arthritis Patient is a 61-year-old male with a past medical history significant for lung cancer advances started chemotherapy admitted to the hospital with left knee pain and swelling concerning for possible septic arthritis in this patient who is status post aspirate of the left knee on 06/08/2021 crystals were negative, patient is status post left knee washout and meniscal repair completed on 06/10/2021 On today's evaluation that is 06/10/2021, the patient did have low-grade fever of 100F, patient pain and swelling to the left knee area is currently controlled , the patient denies having any chest pain shortness of breath or cough no abdominal pain no diarrhea, the patient be complaining of pain to the left hand dorsum area site of previous IV Objective - Vital Signs Vital signs: Vital Signs Temp 97.2 F L 06/10/21 09:16 Pulse 94 06/10/21 10:33 Resp 16 06/10/21 09:45 BP 158/80 06/10/21 10:33 Pulse Ox 99 06/10/21 09:45 Intake & Output 06/09/21 06/10/21 06/10/21 18:59 06:59 18:59 Intake Total 900 850 800 Output Total 1 Balance 900 850 799 Weight 88.451 kg Intake: IV 800 Intake, IV Titration 900 850 Amount Sodium Chloride 0.9% 1, 600 000 ml @ 50 mls/hr IV . Q20H [facility] Rx#:[id number] Sodium Chloride 0.9% 1, 900 000 ml @ 75 mls/hr IV . [id number] [facility] Rx#:[id number] Vancomycin 1,500 mg In 250 Sodium Chloride 0.9% 250 ml @ 125 mls/hr IVPB Q12H [facility] Rx#:[id number] Output: Estimated Blood Loss 1 Other: Voiding Method Urinal Urinal Urinal # Voids 2 3 - Exam GENERAL DESCRIPTION: An middle-aged male lying in bed in no distress RESPIRATORY SYSTEM: Unlabored breathing , decreased breath sounds at bases HEART: S1 S2 regular rate and rhythm , ABDOMEN: Soft , no tenderness EXTREMITIES: Left he did have some swelling and warmth no redness - Labs CBC & Chem 7: 06/09/21 06:18 06/09/21 06:18 Labs: Microbiology - Last 24 Hours (Table) 06/08/21 09:40 Blood Culture - Preliminary Blood No Growth after 48 hours 06/08/21 09:22 Blood Culture - Preliminary Blood No Growth after 48 hours 06/09/21 12:25 Gram Stain - Preliminary Knee - Left Body Fluid Culture - Preliminary 06/09/21 12:25 Gram Stain - Preliminary Knee - Left Wound Culture - Preliminary 06/09/21 12:25 Fungal Culture - Preliminary Knee - Left 06/09/21 12:25 Anaerobic Culture - Preliminary Knee - Left 06/09/21 12:25 Anaerobic Culture - Preliminary Knee - Left 06/08/21 14:40 Gram Stain - Preliminary Knee - Left Body Fluid Culture - Preliminary Assessment and Plan (1) Left knee pain Current Visit: Yes Status: Acute Code(s): M25.562 - PAIN IN LEFT KNEE SNOMED Code(s): 2028936784 (2) Septic arthritis of knee, left Current Visit: Yes Status: Acute Code(s): M00.9 - PYOGENIC ARTHRITIS, UNSPECIFIED SNOMED Code(s): 278764749 Plan: Patient presented to hospital with left knee pain and swelling with concern for inflammatory versus septic arthritis initially white count was not significantly elevated though did have a healthy a combination of fluid quickly with a questio n of possible hemarthrosis, patient is status post left knee washout and meniscal repair, cultures are currently pending patient to continue with vancomycin while waiting for the culture finalized and continue supportive care Time with Patient: Less than 30
[2021-06-11] MEDS: VANCOMYCIN 1,500 MG in SODIUM CHLORIDE 0.9% 250 ML IVPB SCH ×3 (00:36→19:57)
[2021-06-11] MEDS: SODIUM CHLORIDE 0.9% 1,000 ML IV SCH ×2 (00:36→19:57)
[2021-06-11] MEDS: HYDROmorphone 1 MG/ML 1 ML SYRINGE IVP PRN ×7 (01:46→21:19)
[2021-06-11] MEDS: HEPARIN SODIUM,PORCINE/PF 5,000 UNIT/0.5 ML SYRINGE SQ SCH ×2 (07:40→21:17)
[2021-06-11] MEDS: FAMOTIDINE 20 MG/2 ML VIAL IV SCH ×2 (07:40→21:16)
[2021-06-11] MEDS: CALCIUM CARB-VIT D 500 MG-5 MCG TAB PO SCH ×2 (07:41→21:16)
[2021-06-11] MEDS: ACETAMINOPHEN TAB 325 MG TAB PO PRN ×2 (07:54→13:24)
--- NOTE | 2021-06-11 09:55 | P.PN ---
Subjective Progress Note Date: 06/11/21 Principal diagnosis: Lt knee pain Lung CA Patient seen and examined this morning. He states that his knee seems to feel better but still very difficult for him to move. Last night he states he had a very high fever of 103 which she then broke and since then has been feeling much better. States the pain in his hip is much better. He denies any other fevers or chills. Denies any nausea vomiting. States no abdominal discomfort. He does complain of some pain in his left wrist after his IV start the other day there is mild erythema about this wrist over he thinks it is from the IV. Objective - Vital Signs Vital signs: Vital Signs Temp 99.5 F 06/11/21 08:01 Pulse 87 06/11/21 03:50 Resp 18 06/11/21 03:50 BP 136/71 06/11/21 03:50 Pulse Ox 99 06/11/21 03:50 Intake & Output 06/10/21 06/11/21 06/11/21 18:59 06:59 18:59 Intake Total 2200 1600 Output Total 1 1800 Balance 2199 -200 Weight 88.451 kg Intake: IV 800 Intake, IV Titration 600 600 Amount Sodium Chloride 0.9% 1, 600 600 000 ml @ 50 mls/hr IV . Q20H [facility] Rx#:[id number] Oral 800 1000 Output: Urine 1800 Estimated Blood Loss 1 Other: Voiding Method Urinal Urinal # Voids 3 4 - Exam Exam repeated today. Still painful in his left knee with motion however seems to be able to move a little bit more. He is pain and ecchymosis about the left wrist secondary to likely needlestick and inflammation in this area. Minor infiltration suspect as well. No crepitance or other issues noted. Patient is alert and oriented 3 appears well-nourished well-hydrated is in no acute distress. They does not appear septic. On exam the patient does not appear septic There is effusion about the left knee that is 1+ today There is tenderness to palpation of the knee as well as pain with motion of the knee on the left this is improving Upper extremities show 5/5 strength in all major muscle groups. There is FROM that is painless of the b/l UE and LE in all major joints. Except for left knee due to pain They are intact to light touch sensation in L2 to S1 nerve distribution. Patient has palpable dorsalis pedis was posterior tibial pulses. Compartments are soft and compressible. Patient shows a negative Homans, Moraes's, negative Babinski's negative clonus bilaterally. negative straight leg raise bilaterally. No tensioning signs. Cranial nerves II through XII are grossly intact. Overall alignment is well-maintained in the sagittal coronal planes. - Labs CBC & Chem 7: 06/09/21 06:18 06/09/21 06:18 Labs: Abnormal Lab Results - Last 24 Hours (Table) 06/08/21 Range/Units 09:38 ESR 112 H (0-15) mm/hr Microbiology - Last 24 Hours (Table) 06/10/21 08:37 Gram Stain - Preliminary Knee - Left Wound Culture - Preliminary 06/10/21 08:37 Anaerobic Culture - Preliminary Knee - Left 06/08/21 14:40 Gram Stain - Preliminary Knee - Left Body Fluid Culture - Preliminary 06/08/21 09:40 Blood Culture - Preliminary Blood No Growth after 48 hours 06/08/21 09:22 Blood Culture - Preliminary Blood No Growth after 48 hours 06/09/21 12:25 Gram Stain - Preliminary Knee - Left Body Fluid Culture - Preliminary 06/09/21 12:25 Gram Stain - Preliminary Knee - Left Wound Culture - Preliminary Assessment and Plan Assessment: 61 yo male Lt knee pain with effusion clinically suspected septic arthritis postop day 1 left knee arthroscopic lavage Metastatic lung carcinoma Plan: Weightbearing as tolerated left lower extremity Ice rest and elevation for pain and swelling control PT OT daily Pain control as needed Continue with with antibiotics Continue with anti-inflammatory medications ID and medicine recs appreciated
[2021-06-11 10:58] LABS: Basophils # (A) 0.01 X 10*3/uL (0.00-0.10); Basophils % (A) 0.1 %; Eosinophils # (A) 0.03 X 10*3/uL (0.04-0.35); Eosinophils % (A) 0.4 %; HCT 28.1 % (39.6-50.0); HGB 8.6 g/dL (13.0-17.0); Immature Grans, Automated 0.4 %; Lymphocytes # (A) 0.65 X 10*3/uL (0.90-5.00); Lymphocytes % (A) 9.1 %; MCH 26.6 pg (27.0-32.0); MCHC 30.6 g/dL (32.0-37.0); Mean Platelet Volume 9.4 fL (9.5-12.2); Monocytes # (A) 0.56 X 10*3/uL (0.20-1.00); Monocytes % (A) 7.8 %; NRBC Per 100 WBC 0 /100 WBCS (0.0-0.0); Neutrophils # (A) 5.87 X 10*3/uL (1.80-7.70); Neutrophils % (A) 82.2 %; Platelet Count 325 X 10*3/uL (140-440); RBC 3.23 X 10*6/uL (4.40-5.60); RDW 15.5 % (11.5-14.5); WBC 7.15 X 10*3/uL (4.50-10.00)
[2021-06-11 11:10] LABS: African American GFR (CKD) 116.5 (60.0-200.0); Albumin 2.8 g/dL (3.8-4.9); Albumin/Globulin Ratio 0.75 (1.60-3.17); Anion Gap 10.7 mmol/L (10.00-18.00); BUN/Creat Ratio 14.88 Ratio (12.00-20.00); Blood Urea Nitrogen 10.4 mg/dL (9.0-27.0); C Reactive Protein 26.1 mg/dL (0.00-0.80); Calcium 8.3 mg/dL (8.7-10.3); Carbon Dioxide 24.3 mmol/L (20.0-27.5); Globulin 3.7 g/dL (1.6-3.3); Non-African American GFR(CKD) 100.5 (60.0-200.0); Total Bilirubin 0.4 mg/dL (0.30-1.20); Total Protein 6.5 g/dL (6.2-8.2)
[2021-06-11] MEDS: IBUPROFEN 400 MG TAB PO PRN ×2 (12:21→18:18)
[2021-06-11 14:04] LABS: Erythrocyte Sedimentation Rate 127 mm/Hr (0-20)
[2021-06-11] MEDS: FOLIC ACID 1 MG TAB PO SCH (21:16)
--- NOTE | 2021-06-11 23:05 | P.PN ---
Subjective Progress Note Date: 06/11/21 Principal diagnosis: Possible left knee septic arthritis Patient is a 61-year-old male with a past medical history significant for lung cancer advances started chemotherapy admitted to the hospital with left knee pain and swelling concerning for possible septic arthritis in this patient who is status post aspirate of the left knee on 06/08/2021 crystals were negative, patient is status post left knee washout and meniscal repair completed on 06/10/2021 On today's evaluation that is 06/11/2021, the patient did have low-grade fever of 100.2F this morning , the patient pain and swelling to the left knee area is currently controlled , the patient denies having any chest pain shortness of breath or cough no abdominal pain no diarrhea, the patient be complaining of pain to the left hand dorsum area more than his left knee pain Objective - Vital Signs Vital signs: Vital Signs Temp 99.5 F 06/11/21 08:01 Pulse 87 06/11/21 03:50 Resp 18 06/11/21 03:50 BP 136/71 06/11/21 03:50 Pulse Ox 99 06/11/21 03:50 Intake & Output 06/10/21 06/11/21 06/11/21 18:59 06:59 18:59 Intake Total 2200 1600 Output Total 1 1800 Balance 2199 -200 Weight 88.451 kg Intake: IV 800 Intake, IV Titration 600 600 Amount Sodium Chloride 0.9% 1, 600 600 000 ml @ 50 mls/hr IV . Q20H [facility] Rx#:[id number] Oral 800 1000 Output: Urine 1800 Estimated Blood Loss 1 Other: Voiding Method Urinal Urinal # Voids 3 4 - Exam GENERAL DESCRIPTION: An middle-aged male lying in bed in no distress RESPIRATORY SYSTEM: Unlabored breathing , decreased breath sounds at bases HEART: S1 S2 regular rate and rhythm , ABDOMEN: Soft , no tenderness EXTREMITIES: Left knee is currently dressed no drainage on the dressing - Labs CBC & Chem 7: 06/11/21 07:36 06/11/21 07:36 Labs: Abnormal Lab Results - Last 24 Hours (Table) 06/08/21 06/11/21 06/11/21 Range/Units 09:38 07:36 07:36 RBC 3.23 L (4.40-5.60) X 10*6/uL Hgb 8.6 L (13.0-17.0) g/dL Hct 28.1 L (39.6-50.0) % MCH 26.6 L (27.0-32.0) pg MCHC 30.6 L (32.0-37.0) g/dL RDW 15.5 H (11.5-14.5) % MPV 9.4 L (9.5-12.2) fL Lymphocytes # 0.65 L (0.90-5.00) X 10*3/uL Eosinophils # 0.03 L (0.04-0.35) X 10*3/uL ESR 112 H (0-15) mm/hr Sodium 132 L (135-145) mmol/L Glucose 131 H (70-110) mg/dL Calcium 8.3 L (8.7-10.3) mg/dL C-Reactive Protein 26.10 H (0.00-0.80) mg/dL Albumin 2.8 L (3.8-4.9) g/dL Globulin 3.7 H (1.6-3.3) g/dL Albumin/Globulin Ratio 0.75 L (1.60-3.17) g/dL Microbiology - Last 24 Hours (Table) 06/09/21 12:25 Anaerobic Culture - Preliminary Knee - Left 06/09/21 12:25 Anaerobic Culture - Preliminary Knee - Left 06/09/21 12:25 Gram Stain - Preliminary Knee - Left Body Fluid Culture - Preliminary 06/09/21 12:25 Gram Stain - Final Knee - Left Wound Culture - Final 06/08/21 14:40 Gram Stain - Preliminary Knee - Left Body Fluid Culture - Preliminary 06/10/21 08:37 Gram Stain - Preliminary Knee - Left Wound Culture - Preliminary 06/10/21 08:37 Anaerobic Culture - Preliminary Knee - Left 06/08/21 09:40 Blood Culture - Preliminary Blood No Growth after 48 hours 06/08/21 09:22 Blood Culture - Preliminary Blood No Growth after 48 hours Assessment and Plan (1) Left knee pain Current Visit: Yes Status: Acute Code(s): M25.562 - PAIN IN LEFT KNEE SNOMED Code(s): 1862682248 (2) Septic arthritis of knee, left Current Visit: Yes Status: Acute Code(s): M00.9 - PYOGENIC ARTHRITIS, UNSPECIFIED SNOMED Code(s): 027207886 Plan: Patient presented to hospital with left knee pain and swelling with concern for inflammatory versus septic arthritis initially white count was not significantly elevated though did have a healthy a combination of fluid quickly with a question of possible hemarthrosis, patient is status post left knee washout and meniscal repair, cultures has been negative so for, patient to continue with vancomycin, patient may benefit from rheumatology evaluation in view of the migratory arthritis seen Time with Patient: Less than 30
[2021-06-12] MEDS: HYDROmorphone 1 MG/ML 1 ML SYRINGE IVP PRN ×6 (01:10→19:29)
[2021-06-12] MEDS: VANCOMYCIN 1,500 MG in SODIUM CHLORIDE 0.9% 250 ML IVPB SCH ×3 (04:45→19:29)
[2021-06-12] MEDS: IBUPROFEN 400 MG TAB PO PRN (06:08)
[2021-06-12] MEDS: FAMOTIDINE 20 MG/2 ML VIAL IV SCH ×2 (07:38→19:30)
[2021-06-12] MEDS: CALCIUM CARB-VIT D 500 MG-5 MCG TAB PO SCH ×2 (07:39→19:30)
[2021-06-12] MEDS: HEPARIN SODIUM,PORCINE/PF 5,000 UNIT/0.5 ML SYRINGE SQ SCH ×2 (07:39→19:30)
[2021-06-12] MEDS: INDOMETHACIN 25 MG CAP PO SCH ×2 (07:40→19:30)
[2021-06-12 08:59] LABS: Basophils # (A) 0.03 X 10*3/uL (0.00-0.10); Basophils % (A) 0.4 %; Eosinophils # (A) 0.06 X 10*3/uL (0.04-0.35); Eosinophils % (A) 0.9 %; HCT 26.3 % (39.6-50.0); Immature Grans, Automated 0.4 %; Lymphocytes # (A) 0.72 X 10*3/uL (0.90-5.00); Lymphocytes % (A) 10.8 %; MCH 26.6 pg (27.0-32.0); MCHC 30.4 g/dL (32.0-37.0); MCV 87.4 fL (80.0-97.0); Mean Platelet Volume 9.8 fL (9.5-12.2); Monocytes # (A) 0.56 X 10*3/uL (0.20-1.00); Monocytes % (A) 8.4 %; NRBC Per 100 WBC 0 /100 WBCS (0.0-0.0); Neutrophils # (A) 5.29 X 10*3/uL (1.80-7.70); Neutrophils % (A) 79.1 %; Platelet Count 349 X 10*3/uL (140-440); RBC 3.01 X 10*6/uL (4.40-5.60); RDW 15.4 % (11.5-14.5); WBC 6.69 X 10*3/uL (4.50-10.00)
[2021-06-12 12:07] LABS: African American GFR (CKD) 114.4 (60.0-200.0); Albumin 2.6 g/dL (3.8-4.9); Albumin/Globulin Ratio 0.72 (1.60-3.17); Anion Gap 9.1 mmol/L (10.00-18.00); BUN/Creat Ratio 14.93 Ratio (12.00-20.00); Blood Urea Nitrogen 10.9 mg/dL (9.0-27.0); Calcium 8.2 mg/dL (8.7-10.3); Carbon Dioxide 24.9 mmol/L (20.0-27.5); Globulin 3.6 g/dL (1.6-3.3); Non-African American GFR(CKD) 98.7 (60.0-200.0); Total Bilirubin 0.3 mg/dL (0.30-1.20); Total Protein 6.1 g/dL (6.2-8.2)
[2021-06-12] MEDS: ACETAMINOPHEN TAB 325 MG TAB PO PRN (13:05)
[2021-06-12] MEDS: polyethylene glycoL 3350 17 GM POWD.PACK PO PRN (13:06)
[2021-06-12] MEDS: SODIUM CHLORIDE 0.9% 1,000 ML IV SCH (15:43)
--- NOTE | 2021-06-12 16:09 | P.PN ---
Progress Note - Text Progress Note Date: 06/12/21 Subjective: Patient seen at bedside this afternoon. Patient says his left knee is doing much better since his left knee arthroscopy on Friday. Patient says he is able flex and extend his left knee without pain. Patient thinks the Mega wrap is helping with some of swelling. Patient denies chest pain, shortness of breath, nausea, vomiting, change in vision, loss/bladder control. Objective: Mega bandage over left knee was removed. Portal sites are visualized. Sutures are in good place. Negative for any fluctuance/periods. Mild effusion the suprapatellar region likely postoperative swelling. Patient has good range of motion of left knee. Patient is able to flex the knee to about 80 while lying in bed. Extension -10. Strength 4+/5 in resisted knee flexion/extension on the left side. 5+/5 in all other major motor groups. Neurovascular status intact. Capillary refill under 3 seconds in digits of hands. Radial pulses 2+, bilaterally. Negative Homans bilaterally Assessment: 1. Lt knee septic arthritis vs gouty flair vs carcinomatosis 2. INability to ambulate 3. Meteatatic Lung CA Plan: 1. Left knee effusion - left knee incision drainage with arthroscopic irrigation debridement performed 06/10/2021. Patient stable at bedside this morning. Mega bandage was changed. Patient does have some swelling in the left wrist at this point. Swelling has since decreased in the left knee. Cultures of knee come back negative for infection. Swelling flareup likely due to carcinamotisis vs rheumatologic disorder. patient is stable for discharge home from orthopedic standpoint. Recommend patient to follow up in office with us in 2 weeks. Recommend patient to follow closely with oncologist. At this time orthopedics is signing off. Please do not hesitate to contact us for any further questions 2. Appreciate medical management 3. Pain management - [place]; tylenol; gabapentin 4. DVT ppx - Heparin 5. GI ppx - Miralax 6. PT/OT - weightbearing as tolerated with walker as needed
[2021-06-12] MEDS: HYDROcodone/APAP 7.5-325MG 1 EACH TAB PO PRN (18:20)
[2021-06-12] MEDS: FOLIC ACID 1 MG TAB PO SCH (19:30)
[2021-06-13] MEDS ORDERED: VANCOMYCIN TROUGH DUE 1 EACH MISC MISCELLANE ONE (03:00)
[2021-06-13] MEDS: VANCOMYCIN 1,500 MG in SODIUM CHLORIDE 0.9% 250 ML IVPB SCH ×2 (04:43→14:06)
[2021-06-13] MEDS: HYDROmorphone 1 MG/ML 1 ML SYRINGE IVP PRN ×3 (08:00→19:33)
[2021-06-13] MEDS: HEPARIN SODIUM,PORCINE/PF 5,000 UNIT/0.5 ML SYRINGE SQ SCH (08:02)
[2021-06-13] MEDS: INDOMETHACIN 25 MG CAP PO SCH ×2 (08:02→19:45)
[2021-06-13] MEDS: CALCIUM CARB-VIT D 500 MG-5 MCG TAB PO SCH (08:03)
[2021-06-13] MEDS: FAMOTIDINE 20 MG/2 ML VIAL IV SCH (08:03)
[2021-06-13] MEDS: polyethylene glycoL 3350 17 GM POWD.PACK PO PRN (08:34)
--- NOTE | 2021-06-13 08:35 | P.PN ---
Subjective Progress Note Date: 06/13/21 Principal diagnosis: Lt knee pain Lung CA Patient seen and examined is been doing better today. He is able to move his knee without as much pain he still is nonambulatory complains of pain in his left wrist and no pain in his low back. He denies any fevers chills shortness of breath or chest pain overnight. He denies perineal numbness or tingling and denies any other symptoms at this time Objective - Vital Signs Vital signs: Vital Signs Temp 98.1 F 06/13/21 03:45 Pulse 70 06/13/21 03:45 Resp 16 06/13/21 03:45 BP 130/71 06/13/21 03:45 Pulse Ox 97 06/13/21 03:45 Intake & Output 06/12/21 06/13/21 06/13/21 18:59 06:59 18:59 Output Total 300 300 Balance -300 -300 Output: Urine 300 300 Other: # Voids 2 1 - Exam Exam repeated today. No acute changes he is doing better with motion of his left lower extremity and left knee. His left hand does also appear better with the erythema but is still swollen. Patient is alert and oriented 3 appears well-nourished well-hydrated is in no acute distress. They does not appear septic. On exam the patient does not appear septic There is effusion about the left knee that is 1+ today There is tenderness to palpation of the knee as well as pain with motion of the knee on the left this is improving Upper extremities show 5/5 strength in all major muscle groups. There is FROM that is painless of the b/l UE and LE in all major joints. Except for left knee due to pain They are intact to light touch sensation in L2 to S1 nerve distribution. Patient has palpable dorsalis pedis was posterior tibial pulses. Compartments are soft and compressible. Patient shows a negative Homans, Moraes's, negative Babinski's negative clonus bilaterally. negative straight leg raise bilaterally. No tensioning signs. Cranial nerves II through XII are grossly intact. Overall alignment is well-maintained in the sagittal coronal planes. - Labs CBC & Chem 7: 06/12/21 06:40 06/12/21 06:40 Labs: Abnormal Lab Results - Last 24 Hours (Table) 06/12/21 06/12/21 Range/Units 06:40 06:40 RBC 3.01 L (4.40-5.60) X 10*6/uL Hgb 8.0 L (13.0-17.0) g/dL Hct 26.3 L (39.6-50.0) % MCH 26.6 L (27.0-32.0) pg MCHC 30.4 L (32.0-37.0) g/dL RDW 15.4 H (11.5-14.5) % Lymphocytes # 0.72 L (0.90-5.00) X 10*3/uL Sodium 133 L (135-145) mmol/L Anion Gap 9.10 L (10.00-18.00) mmol/L Glucose 123 H (70-110) mg/dL Calcium 8.2 L (8.7-10.3) mg/dL Total Protein 6.1 L (6.2-8.2) g/dL Albumin 2.6 L (3.8-4.9) g/dL Globulin 3.6 H (1.6-3.3) g/dL Albumin/Globulin Ratio 0.72 L (1.60-3.17) g/dL Microbiology - Last 24 Hours (Table) 06/09/21 12:25 Gram Stain - Final Knee - Left Body Fluid Culture - Final 06/10/21 17:18 Blood Culture - Preliminary Blood No Growth after 48 hours 06/10/21 08:37 Anaerobic Culture - Preliminary Knee - Left 06/08/21 09:40 Blood Culture - Preliminary Blood No Growth after 96 hours 06/08/21 09:22 Blood Culture - Preliminary Blood No Growth after 96 hours 06/10/21 08:37 Gram Stain - Final Knee - Left Wound Culture - Final 06/08/21 14:40 Gram Stain - Preliminary Knee - Left Body Fluid Culture - Preliminary Assessment and Plan Assessment: 61 yo male Lt knee pain with effusion clinically suspected septic arthritis postop day 3 left knee arthroscopic lavage Metastatic lung carcinoma Plan: Weightbearing as tolerated left lower extremity Ice rest and elevation for pain and swelling control PT OT daily Continue indomethacin Pain control as needed Continue with with antibiotics Continue with anti-inflammatory medications ID and medicine recs appreciated We will discuss case with his oncologist today
[2021-06-13] MEDS: HYDROcodone/APAP 7.5-325MG 1 EACH TAB PO PRN (16:19)
[2021-06-13] MEDS: ACETAMINOPHEN TAB 325 MG TAB PO PRN (16:20)
--- NOTE | 2021-06-13 16:34 | P.PN ---
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 No trauma or falling. He has chronic dyspnea and coughing, but for the last 2 weeks his been having some dizziness, his PCP treated him with doxycycline was no much benefit and his oncologist started him on on meclizine. Patient denies any ear pain or ranging sounds or discharge. No chest pain or abdominal pain or vomiting or diarrhea. No urinary complaint Patient supposed to start his first chemotherapy at [facility] in [place] today. No previous chemotherapy or radiotherapy He smokes but quit 2 days ago, occasional alcohol no illicit drugs On admission he had a fever of 100.8, Labs show an unremarkable WBCs 9.2, hemoglobin 10.6. Platelet normal. INR 1.0. Basic metabolic panel and liver enzymes are unremarkable and lactic acid 0.9. Urine analysis is negative for infection. Left knee x-ray showing moderate degenerative changes moderate joint effusion Chest x-ray: No acute process. Right shoulder x-ray showing normal In the emergency room patient was started on Zosyn and IV vancomycin 06/09/2021 Patient with left knee septic arthritis is highly suspected versus crystal induced arthropathy. Patient is currently covered with IV vancomycin per infectious disease team , left knee joint has been treated today with 16 mL of fluid taken out and sent to the lab for further testing and wound culture. Other than that he is hemodynamically stable. Fever on admission subsided. His CBC showing some evidence of hemoglobin delusion today. Broadcalcitonin monthly elevated 0.19. TSH normal 2.1, ultrasound of the leg is negative for DVT. Today I discussed the case with the patient and his at bedside, risk of nephrotoxicity with IV vancomycin explained and patient verbalized understanding and acceptance area we recommend to discontinue NSAIDs to decrease the risk of nephropathy. 06/10/2011 Patient underwent incision and drainage of his left knee arthritis with arthroscopic irrigation and debridement of the left knee showing miniscule tear and grade 4 chondromalacia compartment per orthopedic team. Culture from the aspirate still pending, suspected septic arthritis versus metastatic disease versus crystal arthropathy. He had low-grade temperature yesterday 99.8, no fever today. No other new complaint. Patient still on IV vancomycin and normal saline at 50 mL per hour Subjective: Resume the care of the patient on 06/13/2011 Patient left knee looks much better than last time I saw him, status is swollen and tender and he can move it to better extent, also he had infiltration and swelling in his left forearm and hand and thus improved significantly as per patient is left-handed group getting stronger, he could barely Flex it 2 days ago as he states and today is much improved No other joints looks infected or involved. He remains on IV vancomycin and normal saline at 50 mL per hour Objective - Vital Signs Vital signs: Vital Signs Temp 98.1 F 06/13/21 03:45 Pulse 70 06/13/21 03:45 Resp 16 06/13/21 03:45 BP 130/71 06/13/21 03:45 Pulse Ox 97 06/13/21 03:45 Intake & Output 06/12/21 06/13/21 06/13/21 18:59 06:59 18:59 Output Total 300 300 Balance -300 -300 Output: Urine 300 300 Other: # Voids 2 1 - Exam GENERAL: The patient is alert and oriented x3, not in any acute distress. Well developed, well nourished. HEENT: Pupils are round and equally reacting to light. EOMI. No scleral icterus. No conjunctival pallor. Normocephalic, atraumatic. No pharyngeal erythema. No thyromegaly. CARDIOVASCULAR: S1 and S2 present. No murmurs, rubs, or gallops. PULMONARY: Chest is clear to auscultation, no wheezing or crackles. ABDOMEN: Soft, nontender, nondistended, normoactive bowel sounds. No palpable organomegaly. MUSCULOSKELETAL: No joint swelling or deformity. -EXTREMITIES: No cyanosis, clubbing, or pedal edema. Left knee is swollen, warm and tender NEUROLOGICAL: Gross neurological examination did not reveal any focal deficits. SKIN: No rashes. no petechiae. - Labs CBC & Chem 7: 06/12/21 06:40 06/12/21 06:40 Labs: Abnormal Lab Results - Last 24 Hours (Table) 06/12/21 Range/Units 06:40 Sodium 133 L (135-145) mmol/L Anion Gap 9.10 L (10.00-18.00) mmol/L Glucose 123 H (70-110) mg/dL Calcium 8.2 L (8.7-10.3) mg/dL Total Protein 6.1 L (6.2-8.2) g/dL Albumin 2.6 L (3.8-4.9) g/dL Globulin 3.6 H (1.6-3.3) g/dL Albumin/Globulin Ratio 0.72 L (1.60-3.17) g/dL Microbiology - Last 24 Hours (Table) 06/09/21 12:25 Gram Stain - Final Knee - Left Body Fluid Culture - Final 06/10/21 17:18 Blood Culture - Preliminary Blood No Growth after 48 hours 06/10/21 08:37 Anaerobic Culture - Preliminary Knee - Left 06/08/21 09:40 Blood Culture - Preliminary Blood No Growth after 96 hours 06/08/21 09:22 Blood Culture - Preliminary Blood No Growth after 96 hours 06/10/21 08:37 Gram Stain - Final Knee - Left Wound Culture - Final 06/08/21 14:40 Gram Stain - Preliminary Knee - Left Body Fluid Culture - Preliminary Assessment and Plan Assessment: Possible left knee septic arthritis, improving with antibiotic. Metastatic Stage IV adenocarcinoma of the right lower lung 4.1 cm with mediastinal lymphadenopathy, metastatic to the bones Nicotine dependence Plan: This is a pleasant 61 years old male with metastatic lung cancer presents with possible left knee septic arthritis Continue with antibiotics IV vancomycin and follow-up with recommendation by infectious disease team. Monitor creatinine Orthopedic team consult. Labs and medication were reviewed.. Continue same treatment. Continue with symptomatic treatment. Resume home medication. Monitor lytes and vitals. DVT and GI prophylaxis. Further recommendations depends on the clinical course of the patient DVT prophylaxis: Subcutaneous heparin GI Prophylaxis: Pepcid Prognosis is guarded
[2021-06-13] MEDS: SODIUM CHLORIDE 0.9% 1,000 ML IV SCH (17:31)
[2021-06-13 19:56] VITALS: BP 125/71; PULSE 76; RESP 18; TEMP 98.2
--- NOTE | 2021-06-15 13:33 | P.PN ---
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 No trauma or falling. He has chronic dyspnea and coughing, but for the last 2 weeks his been having some dizziness, his PCP treated him with doxycycline was no much benefit and his oncologist started him on on meclizine. Patient denies any ear pain or ranging sounds or discharge. No chest pain or abdominal pain or vomiting or diarrhea. No urinary complaint Patient supposed to start his first chemotherapy at [facility] in [place] today. No previous chemotherapy or radiotherapy He smokes but quit 2 days ago, occasional alcohol no illicit drugs On admission he had a fever of 100.8, Labs show an unremarkable WBCs 9.2, hemoglobin 10.6. Platelet normal. INR 1.0. Basic metabolic panel and liver enzymes are unremarkable and lactic acid 0.9. Urine analysis is negative for infection. Left knee x-ray showing moderate degenerative changes moderate joint effusion Chest x-ray: No acute process. Right shoulder x-ray showing normal In the emergency room patient was started on Zosyn and IV vancomycin 06/09/2021 Patient with left knee septic arthritis is highly suspected versus crystal induced arthropathy. Patient is currently covered with IV vancomycin per infectious disease team , left knee joint has been treated today with 16 mL of fluid taken out and sent to the lab for further testing and wound culture. Other than that he is hemodynamically stable. Fever on admission subsided. His CBC showing some evidence of hemoglobin delusion today. Broadcalcitonin monthly elevated 0.19. TSH normal 2.1, ultrasound of the leg is negative for DVT. Today I discussed the case with the patient and his at bedside, risk of nephrotoxicity with IV vancomycin explained and patient verbalized understanding and acceptance area we recommend to discontinue NSAIDs to decrease the risk of nephropathy. 06/10/2011 Patient underwent incision and drainage of his left knee arthritis with arthroscopic irrigation and debridement of the left knee showing miniscule tear and grade 4 chondromalacia compartment per orthopedic team. Culture from the aspirate still pending, suspected septic arthritis versus metastatic disease versus crystal arthropathy. He had low-grade temperature yesterday 99.8, no fever today. No other new complaint. Patient still on IV vancomycin and normal saline at 50 mL per hour 06/11/2021 Patient is currently resting in bed. Awake alert and oriented x3. Patient has been febrile. No complaints of nausea vomiting or abdominal pain or diarrhea. Patient underwent Knee procedure(s) Performed: 1. Incision and drainage with arthroscopic irrigation and debridment of Lt knee 2. Partial medial menisectomy 3. Synovectomy minor with plical removal 4. MFC chondroplasty 5. PF chondroplasty Patient also complaining of left wrist swelling and redness at the IV site. Discussed with his daughter at bedside. Patient is supposed to follow-up with [facility] at [place] for chemotherapy. I did discuss with the transfer team and advised to follow-up as an outpatient and was not a candidate for inpatient chemotherapy. Continued IV antibiotics in the form of vancomycin follow-up culture reports. Patient continues to be febrile. PossiblePara Neoplastic process is being considered. ID and orthopedic surgery is on board. Objective - Vital Signs Vital signs: Vital Signs Temp 98.6 F 06/11/21 15:34 Pulse 86 06/11/21 11:57 Resp 20 06/11/21 11:57 BP 151/76 06/11/21 11:57 Pulse Ox 99 06/11/21 11:57 Intake & Output 06/10/21 06/11/21 06/11/21 18:59 06:59 18:59 Intake Total 2200 1600 600 Output Total 1 1800 Balance 2199 -200 600 Weight 88.451 kg Intake: IV 800 Intake, IV Titration 600 600 600 Amount Sodium Chloride 0.9% 1, 600 600 600 000 ml @ 50 mls/hr IV . Q20H [facility] Rx#:[id number] Oral 800 1000 Output: Urine 1800 Estimated Blood Loss 1 Other: Voiding Method Urinal Urinal Urinal # Voids 3 4 - Exam - Exam GENERAL: The patient is alert and oriented x3, not in any acute distress. Well developed, well nourished. HEENT: Pupils are round and equally reacting to light. EOMI. No scleral icterus. No conjunctival pallor. Normocephalic, atraumatic. No pharyngeal erythema. No thyromegaly. CARDIOVASCULAR: S1 and S2 present. No murmurs, rubs, or gallops. PULMONARY: Chest is clear to auscultation, no wheezing or crackles. ABDOMEN: Soft, nontender, nondistended, normoactive bowel sounds. No palpable organomegaly. MUSCULOSKELETAL: No joint swelling or deformity. -EXTREMITIES: No cyanosis, clubbing, or pedal edema. Left knee is acewrapped, warm and tender, left wrist minimal swelling and redness NEUROLOGICAL: Gross neurological examination did not reveal any focal deficits. SKIN: No rashes. no petechiae. - Labs CBC & Chem 7: 06/12/21 06:40 06/12/21 06:40 Labs: Abnormal Lab Results - Last 24 Hours (Table) 06/08/21 06/11/21 06/11/21 Range/Units 09:38 07:36 07:36 RBC 3.23 L (4.40-5.60) X 10*6/uL Hgb 8.6 L (13.0-17.0) g/dL Hct 28.1 L (39.6-50.0) % MCH 26.6 L (27.0-32.0) pg MCHC 30.6 L (32.0-37.0) g/dL RDW 15.5 H (11.5-14.5) % MPV 9.4 L (9.5-12.2) fL Lymphocytes # 0.65 L (0.90-5.00) X 10*3/uL Eosinophils # 0.03 L (0.04-0.35) X 10*3/uL ESR 112 H 127 H (0-15) mm/hr Sodium (135-145) mmol/L Glucose (70-110) mg/dL Calcium (8.7-10.3) mg/dL C-Reactive Protein (0.00-0.80) mg/dL Albumin (3.8-4.9) g/dL Globulin (1.6-3.3) g/dL Albumin/Globulin Ratio (1.60-3.17) g/dL Procalcitonin 0.49 H (0.02-0.09) ng/mL 06/11/21 Range/Units 07:36 RBC (4.40-5.60) X 10*6/uL Hgb (13.0-17.0) g/dL Hct (39.6-50.0) % MCH (27.0-32.0) pg MCHC (32.0-37.0) g/dL RDW (11.5-14.5) % MPV (9.5-12.2) fL Lymphocytes # (0.90-5.00) X 10*3/uL Eosinophils # (0.04-0.35) X 10*3/uL ESR (0-15) mm/hr Sodium 132 L (135-145) mmol/L Glucose 131 H (70-110) mg/dL Calcium 8.3 L (8.7-10.3) mg/dL C-Reactive Protein 26.10 H (0.00-0.80) mg/dL Albumin 2.8 L (3.8-4.9) g/dL Globulin 3.7 H (1.6-3.3) g/dL Albumin/Globulin Ratio 0.75 L (1.60-3.17) g/dL Procalcitonin (0.02-0.09) ng/mL Microbiology - Last 24 Hours (Table) 06/08/21 09:40 Blood Culture - Preliminary Blood No Growth after 72 hours 06/08/21 09:22 Blood Culture - Preliminary Blood No Growth after 72 hours 06/09/21 12:25 Anaerobic Culture - Preliminary Knee - Left 06/09/21 12:25 Anaerobic Culture - Preliminary Knee - Left 06/09/21 12:25 Gram Stain - Preliminary Knee - Left Body Fluid Culture - Preliminary 06/09/21 12:25 Gram Stain - Final Knee - Left Wound Culture - Final 06/08/21 14:40 Gram Stain - Preliminary Knee - Left Body Fluid Culture - Preliminary 06/10/21 08:37 Gram Stain - Preliminary Knee - Left Wound Culture - Preliminary 06/10/21 08:37 Anaerobic Culture - Preliminary Knee - Left Assessment and Plan Assessment: Possible left knee septic arthritis I&D with arthroscopic irrigation and debr idment of Lt knee altagracia Partial medial menisectomy Left wrist swelling and redness at the IV site. Metastatic Stage IV adenocarcinoma of the right lower lung 4.1 cm with mediastinal lymphadenopathy, metastatic to the bones Nicotine dependence Plan: This is a pleasant 61 years old male with metastatic lung cancer presents with possible left knee septic arthritis. s/p I&D with arthroscopic irrigation and debridment of Lt knee altagracia Partial medial menisectomy Continue with antibiotics IV vancomycin and consult infectious disease team. Patient continues to be febrile. PossiblePara Neoplastic process is being considered. ID and orthopedic surgery is on board. Labs and medication were reviewed. Monitor lytes and vitals. DVT and GI prophylaxis. Further recommendations depends on the clinical course of the patient DVT prophylaxis: Subcutaneous heparin GI Prophylaxis: Pepcid Prognosis is guarded Time with Patient: Greater than 30
--- NOTE | 2021-06-15 13:35 | P.PN ---
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 No trauma or falling. He has chronic dyspnea and coughing, but for the last 2 weeks his been having some dizziness, his PCP treated him with doxycycline was no much benefit and his oncologist started him on on meclizine. Patient denies any ear pain or ranging sounds or discharge. No chest pain or abdominal pain or vomiting or diarrhea. No urinary complaint Patient supposed to start his first chemotherapy at [facility] in [place] today. No previous chemotherapy or radiotherapy He smokes but quit 2 days ago, occasional alcohol no illicit drugs On admission he had a fever of 100.8, Labs show an unremarkable WBCs 9.2, hemoglobin 10.6. Platelet normal. INR 1.0. Basic metabolic panel and liver enzymes are unremarkable and lactic acid 0.9. Urine analysis is negative for infection. Left knee x-ray showing moderate degenerative changes moderate joint effusion Chest x-ray: No acute process. Right shoulder x-ray showing normal In the emergency room patient was started on Zosyn and IV vancomycin 06/09/2021 Patient with left knee septic arthritis is highly suspected versus crystal induced arthropathy. Patient is currently covered with IV vancomycin per infectious disease team , left knee joint has been treated today with 16 mL of fluid taken out and sent to the lab for further testing and wound culture. Other than that he is hemodynamically stable. Fever on admission subsided. His CBC showing some evidence of hemoglobin delusion today. Broadcalcitonin monthly elevated 0.19. TSH normal 2.1, ultrasound of the leg is negative for DVT. Today I discussed the case with the patient and his at bedside, risk of nephrotoxicity with IV vancomycin explained and patient verbalized understanding and acceptance area we recommend to discontinue NSAIDs to decrease the risk of nephropathy. 06/10/2011 Patient underwent incision and drainage of his left knee arthritis with arthroscopic irrigation and debridement of the left knee showing miniscule tear and grade 4 chondromalacia compartment per orthopedic team. Culture from the aspirate still pending, suspected septic arthritis versus metastatic disease versus crystal arthropathy. He had low-grade temperature yesterday 99.8, no fever today. No other new complaint. Patient still on IV vancomycin and normal saline at 50 mL per hour 06/11/2021 Patient is currently resting in bed. Awake alert and oriented x3. Patient has been febrile. No complaints of nausea vomiting or abdominal pain or diarrhea. Patient underwent Knee procedure(s) Performed: 1. Incision and drainage with arthroscopic irrigation and debridment of Lt knee 2. Partial medial menisectomy 3. Synovectomy minor with plical removal 4. MFC chondroplasty 5. PF chondroplasty Patient also complaining of left wrist swelling and redness at the IV site. Discussed with his daughter at bedside. Patient is supposed to follow-up with [facility] at [place] for chemotherapy. I did discuss with the transfer team and advised to follow-up as an outpatient and was not a candidate for inpatient chemotherapy. Continued IV antibiotics in the form of vancomycin follow-up culture reports. Patient continues to be febrile. PossiblePara Neoplastic process is being considered. ID and orthopedic surgery is on board. 06/12/2021 Patient is resting in the bed. Awake alert and oriented x3. Left knee pain is better. Patient continues to be febrile with T-max 100.1. Complains of sweating as well. Left wrist redness is also improved compared to yesterday. Patient is supposed to get chemotherapy at [facility] in [facility]. Follow-up final culture report sent anticipate discharge once cleared by orthopedic surgery. Continued on IV vancomycin. Cultures have been negative. Current medications reviewed. Objective - Vital Signs Vital signs: Vital Signs Temp 99.8 F H 06/12/21 19:28 Pulse 86 06/12/21 19:28 Resp 16 06/12/21 19:28 BP 116/70 06/12/21 19:28 Pulse Ox 95 06/12/21 19:28 Intake & Output 06/12/21 06/12/21 06/13/21 06:59 18:59 06:59 Intake Total 1600 Output Total 1000 300 Balance 600 -300 Intake: Intake, IV Titration 1100 Amount Sodium Chloride 0.9% 1, 600 000 ml @ 50 mls/hr IV . Q20H [facility] Rx#:[id number] Vancomycin 1,500 mg In 500 Sodium Chloride 0.9% 250 ml @ 125 mls/hr IVPB Q8H [facility] Rx#:[id number] Oral 500 Output: Urine 1000 300 Other: Voiding Method Urinal # Voids 2 - Exam - Exam GENERAL: The patient is alert and oriented x3, not in any acute distress. Well developed, well nourished. HEENT: Pupils are round and equally reacting to light. EOMI. No scleral icterus. No conjunctival pallor. Normocephalic, atraumatic. No pharyngeal erythema. No thyromegaly. CARDIOVASCULAR: S1 and S2 present. No murmurs, rubs, or gallops. PULMONARY: Chest is clear to auscultation, no wheezing or crackles. ABDOMEN: Soft, nontender, nondistended, normoactive bowel sounds. No palpable organomegaly. MUSCULOSKELETAL: No joint swelling or deformity. -EXTREMITIES: No cyanosis, clubbing, or pedal edema. Left knee is acewrapped, warm and tender, left wrist minimal swelling and redness NEUROLOGICAL: Gross neurological examination did not reveal any focal deficits. SKIN: No rashes. no petechiae. - Labs CBC & Chem 7: 06/12/21 06:40 06/12/21 06:40 Labs: Abnormal Lab Results - Last 24 Hours (Table) 06/12/21 06/12/21 Range/Units 06:40 06:40 RBC 3.01 L (4.40-5.60) X 10*6/uL Hgb 8.0 L (13.0-17.0) g/dL Hct 26.3 L (39.6-50.0) % MCH 26.6 L (27.0-32.0) pg MCHC 30.4 L (32.0-37.0) g/dL RDW 15.4 H (11.5-14.5) % Lymphocytes # 0.72 L (0.90-5.00) X 10*3/uL Sodium 133 L (135-145) mmol/L Anion Gap 9.10 L (10.00-18.00) mmol/L Glucose 123 H (70-110) mg/dL Calcium 8.2 L (8.7-10.3) mg/dL Total Protein 6.1 L (6.2-8.2) g/dL Albumin 2.6 L (3.8-4.9) g/dL Globulin 3.6 H (1.6-3.3) g/dL Albumin/Globulin Ratio 0.72 L (1.60-3.17) g/dL Microbiology - Last 24 Hours (Table) 06/10/21 17:18 Blood Culture - Preliminary Blood No Growth after 48 hours 06/10/21 08:37 Anaerobic Culture - Preliminary Knee - Left 06/08/21 09:40 Blood Culture - Preliminary Blood No Growth after 96 hours 06/08/21 09:22 Blood Culture - Preliminary Blood No Growth after 96 hours 06/10/21 08:37 Gram Stain - Final Knee - Left Wound Culture - Final 06/09/21 12:25 Gram Stain - Preliminary Knee - Left Body Fluid Culture - Preliminary 06/08/21 14:40 Gram Stain - Preliminary Knee - Left Body Fluid Culture - Preliminary Assessment and Plan Assessment: Possible left knee septic arthritis I&D with arthroscopic irrigation and debridment of Lt knee altagracia Partial medial menisectomy Left wrist swelling and redness at the IV site. Metastatic Stage IV adenocarcinoma of the right lower lung 4.1 cm with mediastinal lymphadenopathy, metastatic to the bones Nicotine dependence Plan: This is a pleasant 61 years old male with metastatic lung cancer presents with possible left knee septic arthritis. s/p I&D with arthroscopic irrigation and debridment of Lt knee altagracia Partial medial menisectomy Continue with antibiotics IV vancomycin and consult infectious disease team. Patient continues to be febrile. PossiblePara Neoplastic process is being considered. ID and orthopedic surgery is on board. Labs and medication were reviewed. Monitor lytes and vitals. DVT and GI prophylaxis. Further recommendations depends on the clinical course of the patient DVT prophylaxis: Subcutaneous heparin GI Prophylaxis: Pepcid Prognosis is guarded Time with Patient: Greater than 30
== END 2021-06-13 20:04 | disposition home health service (06) | DRG 486 ==
LOC: EC 08:27 → 5NMEDONC 12:37 → 4SSUR 13:05 → 5NMEDONC 20:01
PROVIDERS: ADMIT Internal Medicine; ATTEND Internal Medicine
PROC: 0S9D3ZX Drainage of Left Knee Joint, Percutaneous Approach, Diagnostic (ICD-10-PCS; 2021-06-09)
PROC: 0SBD4ZZ Excision of Left Knee Joint, Percutaneous Endoscopic Approach (ICD-10-PCS; principal; 2021-06-10 08:00)
DX: M00.9 Pyogenic arthritis, unspecified (principal); C79.51 Secondary malignant neoplasm of bone; C77.1 Secondary and unspecified malignant neoplasm of intrathoracic lymph nodes; C34.31 Malignant neoplasm of lower lobe, right bronchus or lung; I48.92 Unspecified atrial flutter; M23.222 Derangement of posterior horn of medial meniscus due to old tear or injury, left knee; M67.52 Plica syndrome, left knee; M25.462 Effusion, left knee; Z20.822 Contact with and (suspected) exposure to COVID-19; M17.12 Unilateral primary osteoarthritis, left knee; F17.200 Nicotine dependence, unspecified, uncomplicated; M94.262 Chondromalacia, left knee; Z86.718 Personal history of other venous thrombosis and embolism; Z79.899 Other long term (current) drug therapy; Z98.890 Other specified postprocedural states; Z88.1 Allergy status to other antibiotic agents; Z91.030 Bee allergy status
CPT/HCPCS: 36415; 71046; 80048; 80053; 80202; 81003; 83605; 84145; 84443; 84550; 85025; 85027; 85610; 85652; 85730; 86140; 87040; 87070; 87075; 87102; 87205; 87635; 88305; 89050; 89060; 93005; 96360; 96372; 99285

== ENCOUNTER 2021-06-22 16:33 | Emergency (ER) | payer OTHER ==
[2021-06-22 16:40] VITALS: TEMP 98.2
[2021-06-22] MEDS ORDERED: MORPHINE SULFATE 4 MG/ML SYRINGE IV STA (17:30)
[2021-06-22] MEDS ORDERED: ONDANSETRON 4 MG/2 ML VIAL IVP STA (17:30)
[2021-06-22] MEDS ORDERED: SODIUM CHLORIDE 0.9% 1,000 ML IV STA (17:30)
--- NOTE | 2021-06-22 17:30 | ED ---
General Adult HPI - General Chief complaint: Shortness of Breath Stated complaint: Constipation/dehydration Time Seen by Provider: 06/22/21 17:20 Source: patient, family, RN notes reviewed, old records reviewed Mode of arrival: wheelchair Limitations: no limitations - History of Present Illness Initial comments: 61-year-old male, alert and oriented 4, presents to the emergency room with daughter complaining of abdominal pain and constipation for 6 days. He denies chest pain or shortness of breath. Today patient has not been able to pass any rectal gas. He is nauseated but denies any vomiting. Denies any fevers. He states that he has had poor intake recently. He does have a history of adenocarcinoma with metastasis. He also complains of chronic right shoulder pain and recently had a PET scan. He is being seen at [facility] and had his last infusion Friday. -: days(s) (7) Location: abdomen Radiation: non-radiation Severity scale (1-10): 4 Quality: constant Associated Symptoms: nausea/vomiting (no vomiting, no passing rectal gas) - Related Data Home Medications Medication Instructions Recorded Confirmed HYDROcodone/APAP 5-325MG [Hamlet 1 tab PO Q6HR PRN 04/04/21 06/22/21 5-325] Acetaminophen Tab [Tylenol] 1,000 mg PO Q6H PRN 05/10/21 06/22/21 oxyCODONE-APAP 7.5-325MG [Percocet 1 tab PO HS PRN 05/10/21 06/22/21 7.5-325 mg] Baclofen [Lioresal] 10 mg PO BID PRN 06/08/21 06/22/21 Calcium Carbonate/Vitamin D3 1 cap PO BID 06/08/21 06/22/21 [Calcium 600 mg-D3 10 Mcg (400 Iu)] Folic Acid 1 mg PO HS 06/08/21 06/22/21 Gabapentin 300 mg PO BID PRN 06/08/21 06/22/21 Meclizine HCl 25 mg PO TID PRN 06/08/21 06/22/21 Prochlorperazine [Compazine] 5 mg PO TID PRN 06/08/21 06/22/21 Meloxicam [Mobic] 7.5 mg PO DAILY 06/22/21 06/22/21 predniSONE See Taper PO DIRECTED 06/22/21 06/22/21 Allergies Allergy/AdvReac Type Severity Reaction Status Date / Time bee venom protein (honey bee) Allergy Swelling Verified 06/22/21 18:16 cephalexin [From Keflex] Allergy Rash/Hives Verified 06/22/21 18:16 Review of Systems ROS Statement: Those systems with pertinent positive or pertinent negative responses have been documented in the HPI. ROS Other: All systems not noted in ROS Statement are negative. Past Medical History Past Medical History: Atrial Flutter Additional Past Medical History / Comment(s): cx- stage 4 adnocarcinoma. blood clots History of Any Multi-Drug Resistant Organisms: None Reported Past Surgical History: No Surgical Hx Reported, Orthopedic Surgery Additional Past Surgical History / Comment(s): hernia Past Anesthesia/Blood Transfusion Reactions: No Reported Reaction Past Psychological History: No Psychological Hx Reported Smoking Status: Current every day smoker Past Alcohol Use History: Rare Past Drug Use History: Marijuana General Exam Limitations: no limitations General appearance: alert, in no apparent distress ENT exam: Present: normal oropharynx, mucous membranes moist Respiratory exam: Present: normal lung sounds bilaterally. Absent: respiratory distress, wheezes, chest wall tenderness, accessory muscle use Cardiovascular Exam: Present: regular rate GI/Abdominal exam: Present: soft, distended, tenderness (Generalized), normal bowel sounds. Absent: guarding, rebound, rigid Extremities exam: Absent: pedal edema Neurological exam: Present: alert, oriented X3 Psychiatric exam: Present: normal affect, normal mood Skin exam: Present: warm, dry, normal color. Absent: cyanosis, diaphoretic Course Vital Signs 06/22/21 06/22/21 06/22/21 16:35 19:39 22:00 Temperature 98.2 F Pulse Rate 69 82 72 Respiratory 18 18 16 Rate Blood Pressure 131/81 117/73 118/71 O2 Sat by Pulse 96 96 98 Oximetry - Reevaluation(s) Reevaluation #1: 06/22/21 23:[address] Ceja at [facility], she states that she will review the patient's chart before accepting transfer. Time: 23:15 Medical Decision Making - Medical Decision Making 60-year-old male comes into the emergency room with abdominal pain and no bowel movement in 6 days. Denies any vomiting or fevers. CT the abdomen and pelvis shows subcentimeter lesions in the right hepatic lobe metastasis versus benign cyst. There is an enlarged right adrenal gland mass measuring 4.6 cm previously 4.2 cm on 02/09/2021. There are no enlarged lymph nodes throughout the upper abdomen and retroperitoneum consistent with metastatic progression. There is sigmoid diverticulosis but no definitive diverticulitis. There is compression of the inferior vena cava level of the adrenal gland secondary to a large right adrenal mass and lymph node. There is no evidence of small bowel obstruction. There is no evidence of leukocytosis and hemoglobin and hematocrit are stable. Vital signs are stable. Patient did get relief with morphine. His abdomen is soft and minimally tender. I did speak with Dr. Ceja at [facility] who is familiar with the patient. She recommended he continue his Hamlet and Senokot. He can try MiraLAX, fleets or magnesium citrate to help with bowel movements. She states he can follow-up with them in the office on Friday morning and to call for an appointment. He was directed to return to the emergency room with any new or worsening symptoms. Patient and family members are agreeable to this plan of care. - Lab Data Result diagrams: 06/22/21 18:12 06/22/21 18:12 Lab Results 06/22/21 06/22/21 06/22/21 Range/Units 18:12 18:12 18:12 WBC 8.7 (3.8-10.6) k/uL RBC 4.40 (4.30-5.90) m/uL Hgb 12.4 L (13.0-17.5) gm/dL Hct 38.5 L (39.0-53.0) % MCV 87.6 (80.0-100.0) fL MCH 28.1 (25.0-35.0) pg MCHC 32.1 (31.0-37.0) g/dL RDW 16.0 H (11.5-15.5) % Plt Count 340 (150-450) k/uL MPV 7.7 Neutrophils % 92 % Lymphocytes % 6 % Monocytes % 1 % Eosinophils % 1 % Basophils % 0 % Neutrophils # 8.0 H (1.3-7.7) k/uL Lymphocytes # 0.5 L (1.0-4.8) k/uL Monocytes # 0.1 (0-1.0) k/uL Eosinophils # 0.1 (0-0.7) k/uL Basophils # 0.0 (0-0.2) k/uL Hypochromasia Moderate Anisocytosis Slight PT 11.3 (9.0-12.0) sec INR 1.0 (<1.2) APTT 21.5 L (22.0-30.0) sec Sodium 136 L (137-145) mmol/L Potassium 4.5 (3.5-5.1) mmol/L Chloride 98 (98-107) mmol/L Carbon Dioxide 25 (22-30) mmol/L Anion Gap 13 mmol/L BUN 38 H (9-20) mg/dL Creatinine 0.98 (0.66-1.25) mg/dL Est GFR (CKD-EPI)AfAm >90 (>60 ml/min/1.73 sqM) Est GFR (CKD-EPI)NonAf 83 (>60 ml/min/1.73 sqM) Glucose 141 H (74-99) mg/dL Plasma Lactic Acid Danny (0.7-2.0) mmol/L Calcium 9.6 (8.4-10.2) mg/dL Total Bilirubin 1.2 (0.2-1.3) mg/dL AST 31 (17-59) U/L ALT 21 (4-49) U/L Alkaline Phosphatase 134 H (38-126) U/L Total Protein 8.3 H (6.3-8.2) g/dL Albumin 3.7 (3.5-5.0) g/dL Amylase 45 (30-110) U/L Lipase 51 (23-300) U/L Urine Color Urine Appearance (Clear) Urine pH (5.0-8.0) Ur Specific [place] (1.001-1.035) Urine Protein (Negative) Urine Glucose (UA) (Negative) Urine Ketones (Negative) Urine Blood (Negative) Urine Nitrite (Negative) Urine Bilirubin (Negative) Urine Urobilinogen (<2.0) mg/dL Ur Leukocyte Esterase (Negative) Coronavirus (PCR) (Not Detectd) 06/22/21 06/22/21 06/22/21 Range/Units 18:12 21:35 23:14 WBC (3.8-10.6) k/uL RBC (4.30-5.90) m/uL Hgb (13.0-17.5) gm/dL Hct (39.0-53.0) % MCV (80.0-100.0) fL MCH (25.0-35.0) pg MCHC (31.0-37.0) g/dL RDW (11.5-15.5) % Plt Count (150-450) k/uL MPV Neutrophils % % Lymphocytes % % Monocytes % % Eosinophils % % Basophils % % Neutrophils # (1.3-7.7) k/uL Lymphocytes # (1.0-4.8) k/uL Monocytes # (0-1.0) k/uL Eosinophils # (0-0.7) k/uL Basophils # (0-0.2) k/uL Hypochromasia Anisocytosis PT (9.0-12.0) sec INR (<1.2) APTT (22.0-30.0) sec Sodium (137-145) mmol/L Potassium (3.5-5.1) mmol/L Chloride (98-107) mmol/L Carbon Dioxide (22-30) mmol/L Anion Gap mmol/L BUN (9-20) mg/dL Creatinine (0.66-1.25) mg/dL Est GFR (CKD-EPI)AfAm (>60 ml/min/1.73 sqM) Est GFR (CKD-EPI)NonAf (>60 ml/min/1.73 sqM) Glucose (74-99) mg/dL Plasma Lactic Acid Danny 1.8 (0.7-2.0) mmol/L Calcium (8.4-10.2) mg/dL Total Bilirubin (0.2-1.3) mg/dL AST (17-59) U/L ALT (4-49) U/L Alkaline Phosphatase (38-126) U/L Total Protein (6.3-8.2) g/dL Albumin (3.5-5.0) g/dL Amylase (30-110) U/L Lipase (23-300) U/L Urine Color Yellow Urine Appearance Clear (Clear) Urine pH 5.5 (5.0-8.0) Ur Specific [place] >1.050 H (1.001-1.035) Urine Protein Trace H (Negative) Urine Glucose (UA) Negative (Negative) Urine Ketones Negative (Negative) Urine Blood Negative (Negative) Urine Nitrite Negative (Negative) Urine Bilirubin Negative (Negative) Urine Urobilinogen <2.0 (<2.0) mg/dL Ur Leukocyte Esterase Negative (Negative) Coronavirus (PCR) Not Detected (Not Detectd) Disposition Clinical Impression: Abdominal pain Disposition: HOME SELF-CARE Condition: Good Instructions (If sedation given, give patient instructions): Abdominal Pain (ED) Additional Instructions: Increase your fluid intake, continue your pain medications as previously prescribed. He can use magnesium citrate to help with bowel movement. Return to the emergency room with any new or concerning symptoms. Contact your primary care doctor/ oncologist Friday for follow-up visit. Is patient prescribed a controlled substance at d/c from ED?: No Referrals: Jose De Santiago DO [Primary Care Provider] - 1-2 days Time of Disposition: 00:30
[2021-06-22 18:18] LABS: Anisocytosis Slight; Basophils % (A) 0 %; Eosinophils # (A) 0.1 k/uL (0-0.7); Eosinophils % (A) 1 %; HCT 38.5 % (39.0-53.0); HGB 12.4 gm/dL (13.0-17.5); Hypochromasia Moderate; Lymphocytes # (A) 0.5 k/uL (1.0-4.8); Lymphocytes % (A) 6 %; MCH 28.1 pg (25.0-35.0); MCHC 32.1 g/dL (31.0-37.0); MCV 87.6 fL (80.0-100.0); Mean Platelet Volume 7.7; Monocytes # (A) 0.1 k/uL (0-1.0); Monocytes % (A) 1 %; Neutrophils % (A) 92 %; Platelet Count 340 k/uL (150-450); WBC 8.7 k/uL (3.8-10.6)
[2021-06-22 18:29] LABS: ALT 21 U/L (4-49); AST 31 U/L (17-59); African American GFR (CKD) >90 (>60 ml/min/1.73 sqM); Albumin 3.7 g/dL (3.5-5.0); Alkaline Phosphatase 134 U/L (38-126); Amylase 45 U/L (30-110); Anion Gap 13 mmol/L; Blood Urea Nitrogen 38 mg/dL (9-20); Calcium 9.6 mg/dL (8.4-10.2); Carbon Dioxide 25 mmol/L (22-30); Chloride 98 mmol/L (98-107); Glucose 141 mg/dL (74-99); Lipase 51 U/L (23-300); Non-African American GFR(CKD) 83 (>60 ml/min/1.73 sqM); Sodium 136 mmol/L (137-145); Total Bilirubin 1.2 mg/dL (0.2-1.3); Total Protein 8.3 g/dL (6.3-8.2)
[2021-06-22 18:30] LABS: Potassium 4.5 mmol/L (3.5-5.1)
[2021-06-22 18:56] LABS: Prothrombin Time 11.3 sec (9.0-12.0)
[2021-06-22 19:06] LABS: Partial Thromboplastin Time 21.5 sec (22.0-30.0)
--- NOTE | 2021-06-22 21:13 | CT ---
EXAMINATION TYPE: CT abdomen pelvis w con DATE OF EXAM: 06/22/2021 COMPARISON: No prior CT of the abdomen and pelvis. Limited comparison made to PET/CT dated 02/09/2021 . HISTORY: Abdominal pain, constipation, no bowel movement x2 weeks. CT DLP: 1087.4 mGycm, Automated Exposure Control for Dose Reduction was Utilized. CONTRAST: CT scan of the abdomen and pelvis is performed with oral and with IV Contrast, patient injected with 100 mL of Isovue 300. FINDINGS: LUNG BASES: Medial right lower lobe mass is not significantly changed in the interval. Minimal left l starla base atelectasis. No new lung mass seen in the included lungs. INCLUDED CARDIAC STRUCTURES: No cardiomegaly or pericardial effusion. LIVER: 0.7 x 0.6 cm low attenuating lesion the right hepatic inferiorly, too small to visualize. Subc entimeter low attenuating lesion in the right hepatic lobe series 201 image 26 too small to visualize . GALLBLADDER : No significant abnormality is appreciated. BILIARY TREE: No abnormal biliary tree dilation. PANCREAS: No significant abnormality is seen. SPLEEN: No significant abnormality is seen. ADRENALS: Enlarged right adrenal gland mass measuring 4.6 cm x 3.1 cm previously measured up to 4.2 c m. 1.0 cm left adrenal lesion of indeterminate etiology. KIDNEYS AND URETERS: No significant abnormality is seen. URINARY BLADDER: No significant abnormality is appreciated. PROSTATE: Enlarged Gastrointestinal system: Bowel gas pattern is nonobstructive, air seen in the rectum and sigmoid. Sma ll bowel is mildly distended with fluid. Appendix is not definitely seen. Sigmoid diverticulosis with no significant adjacent fat stranding. PERITONEUM/MESENTRY: No pneumoperitoneum or ascites. LYMPH NODES: There are multiple new and enlarged lymph nodes, for example periesophageal region measu ring 1.6 x 1.5 cm. Jenae hepatis measuring 2.5 x 1.4 cm and 1.7 cm. Aortocaval measuring 2.7 x 1.3 cm . MAJOR VASCULAR STRUCTURES: Nonaneurysmal aorta. Patent inferior vena cava is compressed at the level of the adrenal gland secondary to mass effect from aortocaval lymph node and adrenal mass. Questionab le invasion of the inferior vena cava seen on image 29 series 201. OSSEOUS STRUCTURES: Slight pathologic compression fracture deformity of the L1 vertebral body on the right (image 58 series 203). Multiple lytic lesions are seen in the spine and pelvic bones. Soft tissue: No significant soft tissue swelling. IMPRESSION: 1. Nonobstructive bowel gas pattern. 2. Subcentimeter lesions in the right hepatic lobe, too small to visualize, consider metastasis versu s benign cysts. 3. Enlarged right adrenal gland mass measuring up to 4.6 cm previously measured up to 4.2 cm. 4. New and enlarged lymph nodes throughout the upper abdomen and retroperitoneum as described above, consistent with metastatic progression. 5. Sigmoid diverticulosis, no definite findings of acute diverticulitis. 6. Focal pathologic compression fracture deformity of L1 upper endplate, new since 05/11/2021. 7. Compression of the inferior vena cava at the level of the adrenal gland secondary to enlarged righ t adrenal mass and aortocaval lymph node. 8. Questionable invasion of the inferior vena cava focally as described above. 9. Additional findings as described in body of report.
[2021-06-22] MEDS ORDERED: SODIUM CHLORIDE 0.9% 500 ML 500 ML IV ONE (21:56)
[2021-06-22 22:07] VITALS: BP 118/71; PULSE 72; RESP 16
[2021-06-22 22:07] LABS: Appearance,Urine Clear (Clear); Bilirubin,Urine Negative (Negative); Blood,Urine Negative (Negative); Color,Urine Yellow; Glucose,Urine (UA) Negative (Negative); Ketones,Urine Negative (Negative); Leukocyte Esterase,Urine Negative (Negative); Nitrite,Urine Negative (Negative); PH, Urine 5.5 (5.0-8.0); Protein,Urine Trace (Negative); Urobilinogen,Urine <2.0 mg/dL (<2.0)
[2021-06-22 22:16] LABS: Specific Gravity,Urine >1.050 (1.001-1.035)
[2021-06-22] MEDS ORDERED: MORPHINE SULFATE 4 MG/ML SYRINGE IVP STA (23:13)
== END 2021-06-23 01:08 | disposition home or self-care (01) ==
LOC: EC 16:33
DX: R10.9 Unspecified abdominal pain (principal); K59.00 Constipation, unspecified; F17.200 Nicotine dependence, unspecified, uncomplicated; Z91.030 Bee allergy status; Z88.1 Allergy status to other antibiotic agents; Z20.822 Contact with and (suspected) exposure to COVID-19
CPT/HCPCS: 36415; 80053; 82150; 83605; 83690; 85025; 85610; 85730; 81003; 87635; 74177; 99284; 96374; 96375; 96376; 96361; J2270; J2405; Q9967